=== PATIENT | female | born 2000 | race Caucasian/White ===

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

== ENCOUNTER 2020-01-05 09:06 | Emergency (ER) | payer OTHER ==
[2020-01-05] MEDS ORDERED: FAMOTIDINE 20 MG/2 ML VIAL IV ONE (09:44)
[2020-01-05] MEDS ORDERED: NA CHLORIDE 0.9% 1,000 ML ONE ×2 (09:44→11:46)
[2020-01-05] MEDS ORDERED: ONDANSETRON 4 MG/2 ML VIAL ONE (09:44)
[2020-01-05 09:57] LABS: Absolute Lymphocytes (CBC) 1.1 K/uL (0.7-4.9); Basophils % 0.3 % (0-1.3); Hematocrit 42.4 % (36.0-45.0); MPV 7.8 fL (7.6-11.3); RBC Red Blood Cell Count 4.42 M/uL (3.86-4.86)
--- NOTE | 2020-01-05 09:57 | RAD REPORT ---
EXAM DESCRIPTION: RAD - Chest Single View - 01/05/2020 9:44 am CLINICAL HISTORY: CHEST PAIN COMPARISON: Portable chest August 2019 TECHNIQUE: AP portable chest image was obtained 01/05/2020 9:44 am . FINDINGS: No cardiomegaly or pulmonary edema. Lung adams are clear. Vasculature within normal limit s. Trachea is midline. No measurable pleural effusion and no pneumothorax. No acute bony abnormality seen. No acute aortic findings suspected. IMPRESSION: No acute cardiopulmonary process.
[2020-01-05 09:59] LABS: Protime INR 1.03
[2020-01-05 10:32] LABS: ALT/SGPT 29 U/L (12-78); AST/SGOT 22 U/L (15-37); Alkaline Phosphatase 51 U/L (45-117); BUN Blood Urea Nitrogen 12 mg/dL (7-18); Bicarbonate 21 mmol/L (21-32); Bilirubin Direct 0.2 mg/dL (0-0.2); Bilirubin Total 0.7 mg/dL (0.2-1.0); Glucose Level 105 mg/dL (74-106); HCG, Quantitative 67937 mIU/mL (1-3); NT PRO-BNP 19 pg/mL (<125); Potassium 3.6 mmol/L (3.5-5.1); Protein, Total 7.7 g/dL (6.4-8.2); Sodium Level 139 mmol/L (136-145); Troponin (Emerg Dept Use Only) < 0.02 ng/mL (0.0-0.045)
[2020-01-05 11:52] LABS: Barbiturates NEGATIVE (NEGATIVE); Benzodiazepines NEGATIVE (NEGATIVE); Cocaine NEGATIVE (NEGATIVE); METHAMPHETAM NEGATIVE (NEGATIVE); Methadone NEGATIVE (NEGATIVE); Opiates NEGATIVE (NEGATIVE); Phencyclidine NEGATIVE (NEGATIVE); THC Cannibis NEGATIVE (NEGATIVE)
--- NOTE | 2020-01-05 12:02 | ER ---
Nurse's Notes [facility] Name: Barbara Moran Age: 19 yrs Sex: Female : 2000 Arrival Date: 01/05/2020 Time: 09:08 Bed 2 Private MD: Diagnosis: Nausea and vomiting;Dehydration;Chest pain, unspecified;Dyspepsia; related conditions, unspecified Presentation: 01/04 09:09 Chief complaint: EMS states: N/V for 3 days, 13 weeks , unknown LMP, also em reports chest pain that radiates into the back and jaw. Coronavirus screen: Proceed with normal triage. Patient denies a cough. Patient denies shortness of breath or difficulty breathing. Patient denies measured and/or subjective temperature greater than 100.4F prior to today's visit. Patient denies travel on a cruise ship or to a country the [facility] currently lists as an affected area. Patient denies contact with known and/or suspected case of COVID-19. Ebola Screen: Patient negative for fever greater than or equal to 101.5 degrees Fahrenheit, and additional compatible Ebola Virus Disease symptoms Patient denies exposure to infectious person. Patient denies travel to an Ebola-affected area in the 21 days before illness onset. No symptoms or risks identified at this time. Initial Sepsis Screen: Does the patient meet any 2 criteria? No. Patient's initial sepsis screen is negative. Does the patient have a suspected source of infection? No. Patient's initial sepsis screen is negative. Risk Assessment: Do you want to hurt yourself or someone else? Patient reports no desire to harm self or others. Onset of symptoms was January 05, 2020. 09:09 Method Of Arrival: EMS: [facility] em 09:09 Acuity: LUCIA 3 em Historical: - Allergies: 09:15 No Known Allergies; em - PMHx: 09:15 None; em - PSHx: 09:15 None; em - Immunization history:: Adult Immunizations up to date. - Social history:: Smoking status: Patient denies any tobacco usage or history of. Screenin:25 Abuse screen: Denies threats or abuse. Denies injuries from another. Nutritional sv screening: No deficits noted. Tuberculosis screening: No symptoms or risk factors identified. Fall Risk None identified. Assessment: 09:09 General: Appears in no apparent distress. uncomfortable, Behavior is calm, cooperative, em appropriate for age, Denies fever. Pain: Complains of pain in back Pain currently is 5 out of 10 on a pain scale. Neuro: Level of Consciousness is awake, alert, obeys commands, Oriented to person, place, time, situation, Appropriate for age. Cardiovascular: Denies chest pain, Capillary refill < 3 seconds Patient's skin is warm and dry. Rhythm is sinus rhythm. Respiratory: Airway is patent Respiratory effort is even, unlabored, Respiratory pattern is regular, symmetrical. GI: Abdomen is flat, Bowel sounds present X 4 quads. Reports nausea, vomiting. Derm: Skin is intact, is healthy with good turgor, Skin is pink, warm \T\ dry. Musculoskeletal: Capillary refill < 3 seconds, Range of motion: intact in all extremities. 10:06 Reassessment: Patient appears in no apparent distress at this time. Patient and/or em family updated on plan of care and expected duration. Pain level reassessed. Patient is alert, oriented x 3, equal unlabored respirations, skin warm/dry/pink. 11:27 Reassessment: Patient appears in no apparent distress at this time. Patient and/or em family updated on plan of care and expected duration. Pain level reassessed. Patient is alert, oriented x 3, equal unlabored respirations, skin warm/dry/pink. Patient states feeling better. Patient states symptoms have improved. Vital Signs: 09:09 BP 130 / 91; Pulse 67; Resp 18; Temp 98.1; Pulse Ox 100% on R/A; Pain 5/10; em 10:20 BP 130 / 81; Pulse 61; Resp 16; Pulse Ox 100% ; sv 11:26 BP 108 / 54; Pulse 78; Resp 16; Pulse Ox 100% ; sv ED Course: 09:08 Patient arrived in ED. em 09:12 Goran Blackmon MD is Attending Physician. kdr 09:15 Triage completed. em 09:15 Arm band placed on. em 09:16 Jeff Nieves, RN is Primary Nurse. em 09:20 ED physician to see patient. sv 09:25 Patient has correct armband on for positive identification. Bed in low position. Call sv light in reach. 09:44 XRAY Chest (1 view) In Process Unspecified. EDMS 10:11 EKG done, by ED staff, reviewed by Goran Blackmon MD. jb1 11:34 Urine collected: clean catch specimen. sv 12:30 No provider procedures requiring assistance completed. IV discontinued, intact, em bleeding controlled, No redness/swelling at site. Pressure dressing applied. Administered Medications: 09:49 Drug: Zofran (Ondansetron) 4 mg Route: IVP; Site: right antecubital; em 11:37 Follow up: Response: No adverse reaction; Marked relief of symptoms; Nausea is decreasedem 09:49 Drug: NS 0.9% 1000 ml Route: IV; Rate: 1 bolus; Site: right antecubital; em 11:36 Follow up: IV Status: Completed infusion; IV Intake: 1000ml em 09:51 Drug: Pepcid 20 mg Route: IVP; Site: right antecubital; em 11:36 Follow up: Response: No adverse reaction; Marked relief of symptoms em 11:40 Drug: NS 0.9% 1000 ml Route: IV; Rate: 1 bolus; Site: right antecubital; em 12:30 Follow up: IV Status: Completed infusion; IV Intake: 1000ml em Intake: 11:36 IV: 1000ml; Total: 1000ml. em 12:30 IV: 1000ml; Total: 2000ml. em Outcome: 12:01 Discharge ordered by . kdr 12:32 Discharged to home ambulatory. em 12:32 Condition: good 12:32 Discharge instructions given to patient, Instructed on discharge instructions, follow up and referral plans. medication usage, Demonstrated understanding of instructions, follow-up care, medications, Prescriptions given X 1. 12:33 Patient left the ED. em Signatures: Dispatcher [employer] Izaiah Gilmore jb1 Yolande Shirley, RN RN sv Goran Blackmon MD MD kdr Munoz, Edgar, RN RN em
--- NOTE | 2020-01-05 12:03 | EDPHYS ---
Physician Documentation [facility] Name: Barbara Moarn Age: 19 yrs Sex: Female : 2000 Arrival Date: 01/05/2020 Time: 09:08 Bed 2 Private MD: ED Physician Goran Blackmon HPI: 01/04 12:05 This 19 yrs old Female presents to ER via EMS with complaints of Nausea, kdr chest and back pain. 12:05 The patient presents to the emergency department with nausea, that is mild, vomiting, kdr that is intermittent. Onset: The symptoms/episode began/occurred suddenly, 3 day(s) ago. Possible causes: . The symptoms are aggravated by nothing. The symptoms are alleviated by food . Associated signs and symptoms: Pertinent positives: abdominal pain, nausea, vomiting. Severity of symptoms: At their worst the symptoms were. The patient has not experienced similar symptoms in the past. The patient has not recently seen a physician. Historical: - Allergies: 09:15 No Known Allergies; em - PMHx: :15 None; em - PSHx: 09:15 None; em - Immunization history:: Adult Immunizations up to date. - Social history:: Smoking status: Patient denies any tobacco usage or history of. ROS: 12:05 Constitutional: Negative for fever, chills, and weight loss, Eyes: Negative for injury, kdr pain, redness, and discharge, Neck: Negative for injury, pain, and swelling, Respiratory: Negative for shortness of breath, cough, wheezing, and pleuritic chest pain, Back: Negative for injury and pain, : Negative for injury, bleeding, discharge, and swelling, MS/Extremity: Negative for injury and deformity, Skin: Negative for injury, rash, and discoloration, Neuro: Negative for headache, weakness, numbness, tingling, and seizure activity. Psych: Negative for depression, anxiety, suicide ideation, homicidal ideation, and hallucinations, Allergy/Immunology: Negative for hives, rash, and allergies, Endocrine: Negative for neck swelling, polydipsia, polyuria, polyphagia, and marked weight changes, Hematologic/Lymphatic: Negative for swollen nodes, abnormal bleeding, and unusual bruising. 12:05 Cardiovascular: Positive for chest pain. 12:05 Abdomen/GI: Positive for abdominal pain, nausea and vomiting. Exam: 12:05 Constitutional: This is a well developed, well nourished patient who is awake, alert, kdr and in no acute distress. Head/Face: Normocephalic, atraumatic. Eyes: Pupils equal round and reactive to light, extra-ocular motions intact. Lids and lashes normal. Conjunctiva and sclera are non-icteric and not injected. Cornea within normal limits. Periorbital areas with no swelling, redness, or edema. Neck: Trachea midline, no thyromegaly or masses palpated, and no cervical lymphadenopathy. Supple, full range of motion without nuchal rigidity, or vertebral point tenderness. No Meningismus. Chest/axilla: Normal chest wall appearance and motion. Nontender with no deformity. No lesions are appreciated. Cardiovascular: Regular rate and rhythm with a normal S1 and S2. No gallops, murmurs, or rubs. Normal PMI, no JVD. No pulse deficits. Respiratory: Lungs have equal breath sounds bilaterally, clear to auscultation and percussion. No rales, rhonchi or wheezes noted. No increased work of breathing, no retractions or nasal flaring. Back: No spinal tenderness. No costovertebral tenderness. Full range of motion. Skin: Warm, dry with normal turgor. Normal color with no rashes, no lesions, and no evidence of cellulitis. MS/ Extremity: Pulses equal, no cyanosis. Neurovascular intact. Full, normal range of motion. Neuro: Awake and alert, GCS 15, oriented to person, place, time, and situation. Cranial nerves II-XII grossly intact. Motor strength 5/5 in all extremities. Sensory grossly intact. Cerebellar exam normal. Normal gait. Psych: Awake, alert, with orientation to person, place and time. Behavior, mood, and affect are within normal limits. 12:05 Abdomen/GI: Inspection: abdomen appears normal. Vital Signs: 09:09 BP 130 / 91; Pulse 67; Resp 18; Temp 98.1; Pulse Ox 100% on R/A; Pain 5/10; em 10:20 BP 130 / 81; Pulse 61; Resp 16; Pulse Ox 100% ; sv 11:26 BP 108 / 54; Pulse 78; Resp 16; Pulse Ox 100% ; sv MDM: 12:01 Patient medically screened. kdr 12:05 Data reviewed: vital signs, nurses notes, lab test result(s), radiologic studies. kdr Counseling: I had a detailed discussion with the patient and/or guardian regarding: the historical points, exam findings, and any diagnostic results supporting the discharge/admit diagnosis, lab results, radiology results, the need for outpatient follow up. 01/04 09:14 Order name: Basic Metabolic Panel; Complete Time: 11:04 [facility] 01/04 09:14 Order name: CBC with Diff [facility] 01/04 09:14 Order name: LFT's; Complete Time: 11:04 [facility] 01/04 09:14 Order name: Magnesium; Complete Time: 11:04 [facility] 01/04 09:14 Order name: NT PRO-BNP; Complete Time: 11:04 [facility] 01/04 09:14 Order name: PT-INR; Complete Time: 11:04 [facility] 01/04 09:14 Order name: Troponin (emerg Dept Use Only); Complete Time: 11:04 [facility] 01/04 09:14 Order name: XRAY Chest (1 view); Complete Time: 11:04 [facility] 01/04 09:27 Order name: UDS; Complete Time: 11:54 [facility] 01/04 09:56 Order name: HCG, Quantitative; Complete Time: 11:04 [facility] 01/04 11:43 Order name: Urine Dipstick--Ancillary (enter results) em1 01/04 12:18 Order name: CBC Smear Scan [facility] 01/04 09:14 Order name: EKG; Complete Time: 09:15 [facility] 01/04 09:14 Order name: Cardiac monitoring; Complete Time: 09:17 [facility] 01/04 09:14 Order name: EKG - Nurse/Tech; Complete Time: 09:56 [facility] 01/04 09:14 Order name: IV Saline Lock; Complete Time: 09:56 [facility] 01/04 09:14 Order name: Labs collected and sent; Complete Time: 09:56 [facility] 01/04 09:14 Order name: O2 Per Protocol; Complete Time: 09:17 [facility] 01/04 09:14 Order name: O2 Sat Monitoring; Complete Time: 09:17 kdr Administered Medications: 09:49 Drug: Zofran (Ondansetron) 4 mg Route: IVP; Site: right antecubital; em 11:37 Follow up: Response: No adverse reaction; Marked relief of symptoms; Nausea is decreasedem 09:49 Drug: NS 0.9% 1000 ml Route: IV; Rate: 1 bolus; Site: right antecubital; em 11:36 Follow up: IV Status: Completed infusion; IV Intake: 1000ml em 09:51 Drug: Pepcid 20 mg Route: IVP; Site: right antecubital; em 11:36 Follow up: Response: No adverse reaction; Marked relief of symptoms em 11:40 Drug: NS 0.9% 1000 ml Route: IV; Rate: 1 bolus; Site: right antecubital; em 12:30 Follow up: IV Status: Completed infusion; IV Intake: 1000ml em Disposition: 01/05/20 12:01 Discharged to Home. Impression: Nausea and vomiting, Dehydration, Chest pain, unspecified, Dyspepsia, related conditions, unspecified. - Condition is Stable. - Discharge Instructions: Nonspecific Chest Pain, Nausea and Vomiting, Adult, [id number], Dehydration, Adult, [id number]. - Prescriptions for Zofran 4 mg Oral Tablet - take 1 tablet by ORAL route every 4-6 hours As needed; 20 tablet. - Medication Reconciliation Form, Thank You Letter form. - Follow up: Private Physician; When: 2 - 3 days; Reason: If symptoms return, Further diagnostic work-up, Recheck today's complaints, Continuance of care, Re-evaluation by your physician. - Problem is new. - Symptoms have improved. Signatures: Dispatcher [employer] [facility] Goran Blackmon MD MD kdr Jeff Nieves RN RN em Corrections: (The following items were deleted from the chart) 09:56 09:28 QUANTITATIVE HCG+C.LAB.BRZ ordered. [facility] 12:33 12:01 01/05/2020 12:01 Discharged to Home. Impression: Nausea and vomiting; em Dehydration; Chest pain, unspecified; Dyspepsia; related conditions, unspecified. Condition is Stable. Forms are Medication Reconciliation Form, Thank You Letter, Antibiotic Education, Prescription Opioid Use. Follow up: Private Physician; When: 2 - 3 days; Reason: If symptoms return, Further diagnostic work-up, Recheck today's complaints, Continuance of care, Re-evaluation by your physician. Problem is new. Symptoms have improved. kdr
[2020-01-05 12:17] LABS: Platelet Estimate ADEQ; Urine White Blood Cell Casts OK
[2020-01-05 12:18] LABS: Blood Morphology Comment NOT SEEN (NOT SEEN)
[2020-01-05 12:27] LABS: Urine Blood NEGATIVE (NEG); Urine Glucose NEGATIVE (NEG); Urine Protein 2+ (NEG); Urine Specific Gravity 1.025 (1.005-1.030)
[2020-01-05 12:38] VITALS: TEMP 98.1; O2SAT 100
[2020-01-05 12:41] VITALS: BP 108/54
--- OUTSIDE RECORDS SUMMARY | 2020-01-05 14:00 | XMS REPORT | Summary of Care ---
:2000 Author Organization [facility] - Health Address [address] [place] [address] Care Team Providers Name Role Phone Tricia Mcmullen Insurance Hmo Destinee Holland [facility] Primary Care Provider [phone] Encounter Details Date Type Department Care Team Description 12/04/2019 Orders Only [facility] Doctor Unassigned, No [address] [facility] [place] [address] [address] [place] [address] Allergies No Known Allergiesdocumented as of this encounter (statuses as of 12/04/2019) Medications Medication Sig Dispensed Refills Start Date End Date Status ibuprofen Take 1 Tab by 1 bot 1 03/05/2010 Activ e (ADVIL,MOTRIN) 100 mg mouth. 2 1/2 chewable tablet tablets every 6-8 hours as needed for pain/fever acetaminophen Take 1 Tab by 1 bot 1 03/05/2010 A ctive (TYLENOL) 160 mg mouth every 6 chewable tablet (six) hours as needed for Pain. 2 1/2 tablets every 4-6 hours as needed for fever/pain VIT Take by mouth. 0 A ctive CALC,IRON,FOLIC ( #2 ORAL) PNV 67-iron ps-folate Take 1 Each by 30 capsule 11 10/18/2017 Active no.1-dha (VITAFOL mouth daily. ULTRA) 29 mg iron- 1 mg-200 mg CapIndications: Supervision of high-risk of young multigravida proMETHazine 25 mg Take 1 tablet by 30 tablet 0 04/20/2018 Active tabletIndications: mouth every 6 Nausea and vomiting (six) hours as during prior needed for Nausea to 22 weeks gestation and Vomiting (N/V). doxylamine-pyridoxine, Take 2 tablets by 120 tablet 1 04/28/20 18 Active vit B6, (DICLEGIS) mouth at bedtime. 10-10 mg per tablet cephALEXin 500 mg Take 1 capsule by 28 capsule 0 05/09/2018 Active capsuleIndications: mouth 4 (four) Bartholin's cyst times daily. ferrous sulfate 325 mg Take 1 tablet by 60 tablet 2 05/26/2018 Active (65 mg iron) tablet mouth 2 (two) times daily. ascorbic acid, vitamin Take 1 tablet by 90 tablet 2 05/26/2018 Active C, 500 mg tablet mouth 3 (three) times daily. documented as of this encounter (statuses as of 12/04/2019) Active Problems Patient Care Coordination Note iol 06-11-18 Problem Noted Date Headache in 11/17/2017 Nausea and vomiting during prior to 22 weeks gestation 11/17/2017 Susceptible to varicella (non-immune), currently pregn ant 10/20/2017 Overview: Address pp Chlamydia infection affecting 10/20/2017 Overview: DASHA in 3/4 weeks--neg and at 36 weeks Supervision of high-risk of young multigravi da 10/18/2017 Multiparity 10/18/2017 History of delivery 10/18/2017 Overview: 28w4d see scanned records Approved for mekena Flu vaccine need 10/18/2017 Overview: Received today documented as of this encounter (statuses as of 12/04/2019) Resolved Problems Problem Noted Date Resolved Date Adjustment reaction with anxious mood 10/03/2009 documented as of this encounter (statuses as of 12/04/2019) Immunizations Name Administration Dates Next Due DTAP 06/17/2004, 09/11/2001, 2000, 2000, 2000 HEPATITIS A 09/03/2009 HIB 4 Dose Schedule 06/19/2001, 2000, 2000, 2000 Hep B, Adol or Pedi Dosage 2000, 2000, 11/25/200 0 Influenza Virus Vaccine Quad IM 3+ 10/18/2017 YRS MMR 06/17/2004, 06/19/2001 Pneumococcal 7 Conjugate, PCV7 10/11/2005, 2000 (Prevnar7) Polio (IPV/OPV) 06/17/2004, 2000, 2000, 2000 Tdap 03/23/2018 Varicella (varivax)(chicken pox) 10/11/2005, 06/19/2001 documented as of this encounter Social History Tobacco Use Types Packs/Day Years Used Date Never Smoker Smokeless Tobacco: Never Used Alcohol Use Drinks/Week oz/Week Comments No Sex Assigned at Date Recorded Not on file Job Start Date Occupation Industry Not on file Not on file Not on file Travel History Travel Start Travel End No recent travel history available. documented as of this encounter Last Filed Vital Signs Not on filedocumented in this encounter Plan of Treatment Health Maintenance Due Date Last Done Comments HEPATITIS A VACCINES (2 of 2 03/03/2010 09/03/2009 - 2-dose series) MENINGOCOCCAL B VACCINES (1 2010 of 2 - Risk Bexsero 2-dose series) HPV VACCINES (1 - Female 2015 3-dose series) MENINGOCOCCAL VACCINE (1 - 2016 2-dose series) INFLUENZA VACCINE (#1) 2019 10/18/2017 CHLAMYDIA SCREENING 05/18/2019 05/18/2018, 11/17/2017, 10/18/2017, Additional history exists DTaP,Tdap,and Td Vaccines (7 03/23/2028 03/23/2018, 004, - Td) 09/11/2001, Additional history exists HEPATITIS B VACCINES Completed 2000, 2000, 2000 IPV VACCINES Completed 06/17/2004, 2000, 2000, Additional history exists MMR VACCINES Completed 06/17/2004, 06/19/2001 PNEUMOCOCCAL 0-64 YEARS Aged Out 10/11/2005, 2000 N o longer eligible COMBINED SERIES based on patient 's age to complete this topic VARICELLA VACCINES Completed 10/11/2005, 06/19/2001 documented as of this encounter Procedures Procedure Name Priority Date/Time Associated Diagnosis Comme nts NOTICE OF PRIVACY Routine 12/04/2019 3:43 AM CDT PRACTICES documented in this encounter Results Not on filedocumented in this encounter Insurance Payer Benefit Plan / Subscriber ID Effective Dates Phone Addre ss Type Group [place] xxxxxxxxx 2017-Presen Medicaid HEALTH PLAN - HEALTH MANAGED MEDICAID documented as of this encounter Advance Directives Name Relationship Healthcare Agent Relationship Co mmunication [place] Mensah Friend Primary healthcare agent Whitney Mensah Friend First alternate healthcare agent Long Peng Father Second alternate healthcare agen t
--- OUTSIDE RECORDS SUMMARY | 2020-01-05 14:00 | XMS REPORT | Continuity of Care Document ---
:2000 Author Organization [facility] t Address [address] [place] [address] Care Team Providers Name Role Phone Harika Núñez DO Attending Clinician Doctor Unassigned, Name Attending Clinician Unavailable Payers Payer Name Policy Type Policy Number Effective Date Expiration Date S ource Problems This patient has no known problems. Allergies, Adverse Reactions, Alerts Allergy Allergy Status Severity Reaction(s) Onset Inactive Treating Comm ents Source Name Type Date Date Clinician No Known DA Active U 2017-07 [facility] [place] No Known DA Active U 2016-07 [facility] 00 [facility] Medications This patient has no known medications. Procedures This patient has no known procedures. Encounters Start End Encounter Admission Attending Care Care Encounter Source Date/Time Date/Time Type Type Clinicians Facility Department ID 2019-12-08 2019-12-08 [facility] [id number] 06:56:27 10:35:00 Simi Pace [id number] [place] [id number] [place] [id number] [id number] 2019-12-04 2019-12-04 Emergency [place] [id number] 03:47:07 06:29:00 Simi Pace [id number] [place] [id number] [place] [id number] 2019-12-04 2019-12-04 Orders Doctor [place] [id number] 00:00:00 00:00:00 Only Unassigned, RASHID [id number] [place] [facility] [id number] [id number] Results This patient has no known results.
--- OUTSIDE RECORDS SUMMARY | 2020-01-05 14:01 | XMS REPORT | Summary of Care ---
:2000 Author Organization [facility] Address [address] [place] [address] Care Team Providers Name Role Phone Lisbeth McmullenCassandra Insurance Hmo Pcp, Patient Does Not Have A Primary Care Provider +[phone] [phone] Reason for Referral (Routine) Status Reason Specialty Diagnoses / Referred By Referred To Procedures Contact Contact New Request OG-OBSTETRICS & Diagnoses Generalized abdominal pain Simi Núñez GYNECOLOGY Procedures Discharge Follow-Up: Specialty Service OG-OBSTETRICS & GYNECOLOGY; 1 Week J, DO [address] [place] [address] Reason for Visit Reason Comments Abdominal Pain left upper quad Chest wall pain Auth/Cert Status Reason Specialty Diagnoses / Referred By Referred To Procedures Contact Contact Emergency Medicine Ad[facility] Em ergency Dept [address] [facility] [place] [phone] Fax: Encounter Details Date Type Department Care Team Description 12/04/2019 Emergency ADC-Emergency Simi Núñez, General ized abdominal Department DO pain (Primary Dx) [address] [facility] [address] [place], [place] [id number] Allergies No Known Allergiesdocumented as of this encounter (statuses as of 12/04/2019) Medications Medication Sig Dispensed Refills Start Date End Date Status ibuprofen Take 1 Tab by 1 bot 1 03/05/2010 Activ e (ADVIL,MOTRIN) 100 mg mouth. 2 1/2 chewable tablet tablets every 6-8 hours as needed for pain/fever acetaminophen (TYLENOL) Take 1 Tab by 1 bot 1 03/05/2010 Active 160 mg chewable tablet mouth every 6 (six) hours as needed for Pain. 2 [...] (six) hours as during prior needed for to 22 weeks gestation Nausea and Vomiting (N/V). doxylamine-pyridoxine, Take 2 tablets 120 tablet 1 04/28/2018 Active vit B6, (DICLEGIS) by mouth at 10-10 mg per tablet bedtime. cephALEXin 500 mg Take 1 capsule 28 capsule 0 05/09/2018 Active capsuleIndications: by mouth 4 Bartholin's cyst (four) times daily. ferrous sulfate 325 mg Take 1 tablet by 60 tablet 2 05/26/2018 Active (65 mg iron) tablet mouth 2 (two) times daily. ascorbic acid, vitamin Take 1 tablet by 90 tablet 2 05/26/2018 Active C, 500 mg tablet mouth 3 (three) times daily. ondansetron (ZOFRAN Take 1 tablet by 14 tablet 0 12/04/2019 Active ODT) 4 mg mouth every 8 disintegrating (eight) hours as tabletIndications: needed for Generalized abdominal Nausea and pain Vomiting (N/V). documented as of this encounter (statuses as [...] B, Adol or Pedi Dosage 2000, 2000, 0 Influenza Virus Vaccine Quad IM 3+ [...] Travel End No recent travel history available. COVID-19 Exposure Response Date Recorded In the last month, have you been in contact with No / Unsure 12/04/2019 3:50 AM CDT someone who was confirmed or suspected to have Coronavirus / COVID-19? documented as of this encounter Last Filed Vital Signs Vital Sign Reading Time Taken Comments Blood Pressure 116/61 12/04/2019 6:20 AM CDT Pulse 80 12/04/2019 6:20 AM CDT Temperature 37.1 C (98.7 F) 12/04/2019 4:21 AM CDT Respiratory Rate 14 12/04/2019 6:20 AM CDT Oxygen Saturation 99% 12/04/2019 6:20 AM CDT Inhaled Oxygen Concentration - - Weight 45.4 kg (100 lb) 12/04/2019 3:54 AM CDT Height 160 cm (5' 3") 12/04/2019 3:54 AM CDT Body Mass Index 17.71 12/04/2019 3:54 AM CDT documented in this encounter Discharge Instructions Simi Villarreal, - 12/04/2019DIAGNOSIS 1. Dehydration 2. NO LIFE-THREATENING FINDINGS ON TODAY'S EXAM. PROCEDURES IN THE ER TODAY: Blood work Urine test Ultrasound MEDICATIONS ADMINISTERED IN THE ER TODAY: IV fluids Zofran YOUR PRESCRIPTIONS AND [id number] MEDICATION RECOMMENDATIONS: Zofran by mouth every 8 hours as needed for nausea/vomiting. Please start daily vitamins.. SPECIAL CARE INSTRUCTIONS: None FOLLOW-UP RECOMMENDATIONS: RECOMMEND FOLLOW-UP WITH A PRIMARY CARE PROVIDER OR SPECIALIST IN 2-5 DAYS, ESPECIALLY IF NO IMPROVEMENT IN SYMPTOMS. TO FOLLOW-UP WITHIN THE [facility], TRY THESE OPTIONS (CLINIC APPOINTMENTS AVAILABLE ON EDBM-NT-YVCT BASIS): 1. SCHEDULE AN APPOINTMENT ONLINE AT [email or web address] 2. OR CALL THE [facility] ACCESS CENTER AT OR 3. OR CALL YOUR [facility] PHYSICIAN'S OFFICE DIRECTLY IF YOU ARE ALREADY AN ESTABLISHED [facility] PATIENT. OR, YOU MAY FOLLOW-UP WITH A PROVIDER OF YOUR CHOICE, SUCH : 1. A PHYSICIAN OF YOUR CHOICE 2. [facility], . LOCATIONS IN [facility] 3. [facility], [address] [place] [address]; [phone] RETURN TO ER FOR WORSENING OF SYMPTOMS. AttachmentsThe following attachments cannot be sent through Care Everywhere. Dehydration (Adult) (Belgian)Heat Exhaustion (Belgian), New Dx (Belgian)documented in this encounter Plan of Treatment Health Maintenance Due Date Last Done Comments MENINGOCOCCAL B VACCINES (1 2010 of 2 - Risk Bexsero 2-dose series) HPV VACCINES (1 - Female 2011 2-dose series) WELL CARE VISIT: 12-21 YEARS 2012 (yearly) CHLAMYDIA SCREENING 05/18/2019 05/18/2018, 11/17/2017, 10/18/2017, Additional history exists INFLUENZA VACCINE (Season 03/18/2020 10/18/2017 Ended) DTaP,Tdap,and Td Vaccines (7 03/23/2028 03/23/2018, 004, - Td) 09/11/2001, Additional history exists PNEUMOCOCCAL 0-64 YEARS Aged Out 10/11/2005, 2000 N o longer eligible COMBINED SERIES based on patient 's age to complete this topic VARICELLA VACCINES Completed 10/11/2005, 06/19/2001 MENINGOCOCCAL VACCINE Aged Out No longer eligible based on patient 's age to complete this topic documented as of this encounter Procedures Procedure Name Priority Date/Time Associated Diagnosis Comme nts CBC WITH DIFFERENTIAL STAT 12/04/2019 4:18 Generalized Re sults for this AM CDT abdominal pain procedure are in the results section. CBC WITH DIFFERENTIAL Routine 12/04/2019 4:18 Generalized Re sults for this AM CDT abdominal pain procedure are in the results section. TOTAL BETA HCG ASSAY STAT 12/04/2019 4:18 Generalized Res ults for this AM CDT abdominal pain procedure are in the results section. BASIC METABOLIC PANEL STAT 12/04/2019 4:18 Generalized Re sults for this (NA, K, CL, CO2, AM CDT abdominal pain procedure are in GLUCOSE, BUN, the results CREATININE, CA) section. HEPATIC FUNCTION STAT 12/04/2019 4:18 Generalized Results for this PANEL (19981) AM CDT abdominal pain procedure ar e in (ALB,T.PRO,BILI the results T,BU/BC,ALT,AST,ALK section. PHOS) LIPASE STAT 12/04/2019 4:18 Generalized Results for this AM CDT abdominal pain procedure are in the results section. CREATINE KINASE STAT 12/04/2019 4:18 Generalized Results for this AM CDT abdominal pain procedure are in the results section. POCT TEST DEVANTE 12/04/2019 3:59 Generalized Resu lts for this AM CDT abdominal pain procedure are in the results section. URINALYSIS STAT 12/04/2019 3:58 Generalized Results for this AM CDT abdominal pain procedure are in the results section. ASSIGNMENT OF Routine 12/04/2019 3:44 BENEFITS AM CDT CONSENT/REFUSAL FOR Routine 12/04/2019 3:43 DIAGNOSIS AND AM CDT TREATMENT documented in this encounter Results TOTAL BHCG (QUANTITATIVE) (12/04/2019 4:18 AM CDT) Pathologist Sig nature BETA HCG 19,579.00 Non- female [facility] and male patients: HOSPITAL LABORATORY <5 mIU/mL Specimen Blood - VENOUS Narrative Performed At [facility] Gestational Age Range (mIU/mL) 1-10 Weeks 4 [id number] 11-15 Weeks 78754-288894 16-22 Weeks 7480-498349 23-40 Weeks [id number] Biotin has been reported to cause a negative bias, interpret results relative to patient's use of biotin. Performing Organization Address City/State/Zipcode Phone Number [facility] CLIA: [id number], [address] [place] [address] CBC WITH DIFFERENTIAL (12/04/2019 4:18 AM CDT) [facility] WBC 10.73 4.30 - 11.10 [facility] 10*3/L [facility] RBC 4.12 3.93 - 5.25 [facility] 10*6/L [facility] HGB 13.1 11.6 - 15.0 [facility] g/dL [facility] HCT 38.6 35.7 - 45.2 % [facility] MCV 93.7 80.6 - 95.5 fL [facility] MCH 31.8 25.9 - 32.8 pg [facility] MCHC 33.9 31.6 - 35.1 [facility] g/dL [facility] RDW-SD 44.7 39.0 - 49.9 fL [facility] RDW-CV 12.9 12.0 - 15.5 % [facility] PLT 265 166 - 358 [facility] 10*3/L [facility] MPV 9.1 (L) 9.5 - 12.9 fL [facility] NRBC/100 WBC 0.0 0.0 - 10.0 /100 [facility] WBCs [facility] NRBC x10^3 <0.01 10*3/L [facility] GRAN MAT (NEUT) % 72.6 % [facility] IMM GRAN % 0.60 % [facility] LYMPH % 19.3 % [facility] MONO % 5.7 % [facility] EOS % 1.4 % [facility] BASO % 0.4 % [facility] GRAN MAT x10^3(ANC) 7.80 (H) 1.88 - 7.09 [facility] 10*3/uL [facility]ITAL [facility] IMM GRAN x10^3 0.06 0.00 - 0.06 [facility] 10*3/uL [facility] LYMPH x10^3 2.07 1.32 - 3.29 [facility] 10*3/uL [facility] MONO x10^3 0.61 0.33 - 0.92 [facility] 10*3/uL [facility] EOS x10^3 0.15 0.03 - 0.39 [facility] 10*3/uL [facility] BASO x10^3 0.04 0.01 - 0.07 [facility] 10*3/uL [facility] Specimen Blood - VENOUS Performing Organization Address [facility] Phone Number [facility] CLIA: [id number], [address] [place] [address] CREATINE KINASE (12/04/2019 4:18 AM CDT) Pathologist Sig [facility] CK 73 33 - 194 U/L [facility] Specimen Blood - VENOUS Performing Organization Address [facility] Phone Number [facility] CLIA: [id number], [address] [place] [address] Lipase Serum (12/04/2019 4:18 AM CDT) Pathologist Sig [facility] LIPASE 27 0 - 220 U/L [facility] Specimen Blood - VENOUS Performing Organization Address [facility] Phone Number [facility] CLIA: [id number], [address] [place] [address] Hepatic Function Panel (ALB, T.PRO, BILI T, BU/BC, ALT, AST, ALK PHOS) (12/04/2019 4:18 AM CDT) Pathologist Sig [facility] TOTAL BILI 0.6 0.1 - 1.1 mg/dL [facility] BILI UNCON 0.8 0.1 - 1.1 mg/dL [facility] BILI CONJ 0.0 0.0 - 0.3 mg/dL [facility] T PROTEIN 6.6 6.3 - 8.2 g/dL [facility] ALBUMIN 4.1 3.5 - 5.0 g/dL [facility] ALK PHOS 38 34 - 122 U/L [facility] ALTv 11 5 - 35 U/L [facility] AST(SGOT) 17 13 - 40 U/L [facility] Specimen Blood - VENOUS Performing Organization Address City/State/Zipcode Phone Number [facility] CLIA: [id number], [address] [place] [address] Basic Metabolic Panel (NA, K, CL, CO2, GLUCOSE, BUN, CREATININE, CA) (12/04/2019 4:18 AM CDT) [facility] nature NA 137 135 - 145 mmol/L [facility] K 3.5 3.5 - 5.0 mmol/L [facility] CL 104 98 - 108 mmol/L [facility] CO2 TOTAL 25 23 - 31 mmol/L [facility] AGAP 8 2 - 16 [facility] BUN 12 7 - 23 mg/dL [facility] GLUCOSE 99 70 - 110 mg/dL [facility] CREATININE 0.57 0.50 - 1.04 [facility] mg/dL [facility] CALCIUM 9.2 8.6 - 10.6 mg/dL [facility] eGFR Calculation 136.6 mL/min/1.73m2 [facility] (Non-) [facility] eGFR Calculation 165.6 mL/min/1.73m2 [facility] () [facility] Specimen Blood - VENOUS Narrative Performed At Association of Glomerular Filtration Rate (GFR) [facility] and Staging of Kidney Disease* + + +- + | GFR (mL/min/1.73 m2) | With Kidney Damage | Without Kidney Damage + + +- + | >90 | Stage one | Normal + + +- + | 60-89 | Stage two | Decreased GFR + + +- + | 30-59 | Stage three | Stage three + + +- + | 15-29 | Stage four | Stage four + + +- + | <15 (or dialysis) | Stage five | Stage five + + +- + *Each stage assumes the associated GFR level has been in effect for at least three months. Stages 1 to 5, with or without kidney disease, indicate chronic kidney disease. Notes: Determination of stages one and two (with eGFR >59mL/min/1.73 m2) requires estimation of kidney damage for at least three months as defined by structural or functional abnormalities of the kidney, manifested by either: Pathological abnormalities or Markers of kidney damage (including abnormalities in the composition of the blood or urine or abnormalities in imaging tests). Performing Organization Address City/State/Zipcode Phone Number [facility] CLIA: [id number], [address] [place], [place] [address] POCT Test, Urine (12/04/2019 3:59 AM CDT) Pathologist Sig nature On board controls acceptable Positive with C Line POCT PREG LOT # [id number] POCT PREG TEST DATE 02/14/2021 POCT PREG positive Specimen Urine - URINE, CLEAN CATCH Urinalysis (12/04/2019 3:58 AM CDT) Pathologist Sig nature APPEARANCE Hazy (A) Clear [facility] COLOR Yellow Yellow [facility] PH 5.0 4.8 - 8.0 [facility] SP GRAVITY 1.028 1.003 - 1.030 [facility] GLU U QUAL Normal Normal [facility] BLOOD Negative Negative [facility] KETONES 20 mg/dL (A) Negative [facility] PROTEIN Negative Negative [facility] UROBILIN Normal Normal [facility] BILIRUBIN Negative Negative [facility] NITRITE Negative Negative [facility] LEUK ANDRE Negative Negative [facility] RBC/HPF 3 0 - 3 HPF [facility] WBC/HPF 1 0 - 5 HPF [facility] BACTERIA Negative Negative [facility] MUCOUS Moderate (A) Negative LPF [facility] SQ EPITH 4 HPF [facility] CA OXALATE 10 (H) <=1 HPF [facility] Specimen Urine - URINE, CLEAN CATCH Performing Organization Address City/State/Zipcode Phone Number [facility] CLIA: [id number], [address] [place], [place] [address] documented in this encounter Visit Diagnoses Diagnosis Generalized abdominal pain - Primary Abdominal pain, generalized documented in this encounter Administered Medications Medication Order MAR Action Action Date Dose Rate Site acetaminophen (TYLENOL) tablet Given 12/04/2019 4:17 AM CDT 650 mg 650 mg 650 mg, Oral, ONCE, 1 dose, 12/04/19 at 0515, DEVANTE NaCl 0.9% (NS) bolus infusion New Bag 12/04/2019 4:17 AM CDT 1,000 mL 999 mL/hr 1,000 mL at 999 mL/hr, 1,000 mL, IV Infusion, ONCE, 1 dose, 12/04/19 at 0415, DEVANTE ondansetron (ZOFRAN (PF)) injection 4 mg Given 12/04/2019 4:29 AM CDT 4 mg 4 mg, Slow IV Push, ONCE, 1 dose, 12/04/19 at 0430, DEVANTE documented in this encounter Insurance Payer Benefit Plan / Subscriber ID Effective Dates Phone Addre ss Type Group [facility] MEDICAID OF xxxxxxxxx 2019-Present [phone] Medicaid [place] [id number] [place] [id number] documented as of this encounter
--- OUTSIDE RECORDS SUMMARY | 2020-01-05 14:02 | XMS REPORT | Summary of Care ---
:2000 Author Organization [facility] - Health Address [address] [place] [address] Care Team Providers Name Role Phone Ivanna Mcmullenh Insurance Hmo Pcp, Patient Does Not Have A Primary Care Provider +[id number] 0-0000 Reason for Visit Reason Comments Headache Auth/Cert Status Reason Specialty Diagnoses / Referred By Referred To Procedures Contact Contact Emergency Medicine Diagnoses CHEST PAIN,VOMITING [facility] Emergency Dept [address] [facility] [place] [address] Fax: Encounter Details Date Type Department Care Team Description 12/08/2019 Emergency ADC-Emergency Simi Núñez, Joshua g, intractability Department DO of vomiting not [address] [facility] [address] [place] [address] specified, presence [place] [address] [place] [address] nausea not specified, unspecified vomiting type (Yessica jesi Dx) Allergies No Known Allergiesdocumented as of this encounter (statuses as of 12/08/2019) Medications Medication Sig Dispensed Refills Start Date [...] as of this encounter (statuses as of 12/08/2019) Active Problems Patient Care Coordination Note iol [...] as of this encounter (statuses as of 12/08/2019) Resolved Problems Problem Noted Date Resolved Date Adjustment reaction with anxious mood 10/03/2009 documented as of this encounter (statuses as of 12/08/2019) Immunizations Name Administration Dates Next Due DTAP [...] been in contact with No / Unsure 12/08/2019 7:51 AM CDT someone who was confirmed or suspected to have Coronavirus / COVID-19? documented as of this encounter Last Filed Vital Signs Vital Sign Reading Time Taken Comments Blood Pressure 113/85 12/08/2019 9:54 AM CDT Pulse 77 12/08/2019 9:54 AM CDT Temperature 37.2 C (98.9 F) 12/08/2019 7:02 AM CDT Respiratory Rate 15 12/08/2019 9:54 AM CDT Oxygen Saturation 100% 12/08/2019 9:54 AM CDT Inhaled Oxygen Concentration - - Weight 45.4 kg (100 lb) 12/08/2019 7:02 AM CDT Height 160 cm (5' 3") 12/08/2019 7:02 AM CDT Body Mass Index 17.71 12/08/2019 7:02 AM CDT documented in this encounter Discharge Instructions Simi Villarreal, - 12/08/2019DIAGNOSIS 1. Vomiting 2. Syncope NO LIFE-THREATENING FINDINGS ON TODAY'S EXAM. PROCEDURES IN THE ER TODAY: Blood work Urine test EKG MEDICATIONS ADMINISTERED IN THE ER TODAY: IV fluids Zofran YOUR PRESCRIPTIONS AND [id number] MEDICATION RECOMMENDATIONS: None SPECIAL CARE INSTRUCTIONS: None FOLLOW-UP RECOMMENDATIONS: RECOMMEND FOLLOW-UP WITH A PRIMARY CARE PROVIDER OR SPECIALIST IN 2-5 DAYS, ESPECIALLY IF NO IMPROVEMENT IN SYMPTOMS. TO FOLLOW-UP WITHIN THE [facility], TRY THESE OPTIONS (CLINIC APPOINTMENTS AVAILABLE ON [id number] BASIS): 1. SCHEDULE AN APPOINTMENT ONLINE AT WWW[facility] 2. OR CALL THE [facility] ACCESS CENTER AT OR 3. OR CALL YOUR [facility] PHYSICIAN'S OFFICE DIRECTLY IF YOU ARE ALREADY AN ESTABLISHED [facility] PATIENT. OR, YOU MAY FOLLOW-UP WITH A PROVIDER OF YOUR CHOICE, SUCH : 1. A PHYSICIAN OF YOUR CHOICE 2. [facility], . LOCATIONS IN [facility] 3. [facility], [address] [place] [address]; [phone] RETURN TO ER FOR WORSENING OF SYMPTOMS. AttachmentsThe following attachments cannot be sent through Care Everywhere. Vomiting (Adult) (Ecuadorean)Syncope, Causes of (Ecuadorean)documented in this encounter Plan of Treatment Health [...] Name Priority Date/Time Associated Diagnosis Comme nts BASIC METABOLIC STAT 12/08/2019 8:30 Vomiting, Results for this PANEL (NA, K, CL, AM CDT intractability of proce dure are in CO2, GLUCOSE, BUN, vomiting not the resul ts CREATININE, CA) specified, presence of se ction. nausea not specified, unspecified vomiting type CBC WITH STAT 12/08/2019 7:52 Vomiting, Results for this DIFFERENTIAL AM CDT intractability of procedure are in vomiting not the results specified, presence of secti on. nausea not specified, unspecified vomiting type URINALYSIS STAT 12/08/2019 7:52 Vomiting, Results for this AM CDT intractability of procedure are in vomiting not the results specified, presence of secti on. nausea not specified, unspecified vomiting type CBC WITH Routine 12/08/2019 7:52 Vomiting, Results for this DIFFERENTIAL AM CDT intractability of procedure are in vomiting not the results specified, presence of secti on. nausea not specified, unspecified vomiting type TROPONIN I STAT 12/08/2019 7:52 Vomiting, Results for this AM CDT intractability of procedure are in vomiting not the results specified, presence of secti on. nausea not specified, unspecified vomiting type EKG-12 LEAD STAT 12/08/2019 7:21 AM CDT CONSENT/REFUSAL FOR Routine 12/08/2019 6:54 DIAGNOSIS AND AM CDT TREATMENT documented in this encounter Results Basic Metabolic Panel (NA, K, CL, CO2, GLUCOSE, BUN, CREATININE, CA) (12/08/2019 8:30 AM CDT) NA 139 135 - 145 [facility] mmol/L [facility] K 3.9 3.5 - 5.0 [facility] mmol/L [facility] CL 106 98 - 108 mmol/L [facility] CO2 TOTAL 23 23 - 31 mmol/L [facility] AGAP 10 2 - 16 [facility] BUN 8 7 - 23 mg/dL [facility] GLUCOSE 101 70 - 110 mg/dL [facility] CREATININE 0.46 (L) 0.50 - 1.04 [facility] mg/dL [facility] CALCIUM 9.4 8.6 - 10.6 [facility] mg/dL [facility] eGFR Calculation 175.0 mL/min/1.73m2 [facility] (Non-[facility] LABORATORY [place]) eGFR Calculation 212.1 mL/min/1.73m2 [facility] () [facility] Specimen Blood - VENOUS Narrative [place] [facility] [place]omerular Filtration Rate (GFR) [facility] and Staging of Kidney Disease* + [...] tests). Performing Organization Address City/State/Zipcode Phone Number [facility] CLIA: [id number], [address] [place], [place] [address] CBC WITH DIFFERENTIAL (12/08/2019 7:52 AM CDT) [facility] WBC 8.87 4.30 - 11.10 [facility] 10*3/L [facility] RBC 4.07 3.93 - 5.25 [facility] 10*6/L [facility] HGB 13.1 11.6 - 15.0 [facility] g/dL [facility] HCT 38.1 35.7 - 45.2 % [facility] MCV 93.6 80.6 - 95.5 fL [facility] MCH 32.2 25.9 - 32.8 pg [facility] MCHC 34.4 31.6 - 35.1 [facility] g/dL [facility]ITAL [facility] RDW-SD 43.6 39.0 - 49.9 fL [facility] RDW-CV 12.7 12.0 - 15.5 % [facility] PLT 279 166 - 358 [facility] 10*3/L [facility] MPV 9.9 9.5 - 12.9 fL [facility] NRBC/100 WBC 0.0 0.0 - 10.0 /100 [facility] WBCs [facility] NRBC x10^3 <0.01 10*3/L [facility] GRAN MAT (NEUT) % 78.4 % [facility] IMM GRAN % 0.50 % [facility] LYMPH % 14.4 % [facility] MONO % 4.4 % [facility] EOS % 1.7 % [facility] BASO % 0.6 % [facility] GRAN MAT x10^3(ANC) 6.96 1.88 - 7.09 [facility] 10*3/uL [facility] IMM GRAN x10^3 0.04 0.00 - 0.06 [facility] 10*3/uL [facility] LYMPH x10^3 1.28 (L) 1.32 - 3.29 [facility] 10*3/uL [facility] MONO x10^3 0.39 0.33 - 0.92 [facility] 10*3/uL [facility] EOS x10^3 0.15 0.03 - 0.39 [facility] 10*3/uL [facility] BASO x10^3 0.05 0.01 - 0.07 [facility] 10*3/uL [facility] Specimen Blood - VENOUS Performing Organization Address City/State/Zipcode Phone Number [facility] CLIA: [id number], [address] [place] [address] Troponin I (12/08/2019 7:52 AM CDT) Pathologist Sig nature TROPONIN I <0.012 <=0.034 ng/mL [facility] Specimen Blood - VENOUS Narrative Performed At Equal or Less than 0.034 ng/ml---Normal [facility] Note: Cardiac troponin begins to rise 3-4 hours after the onset of ischemia. Repeat in 4-6 hours if the sample was drawn within 3-4 hours of the onset of the symptom and found normal. Between 0.035 and 0.120 ng/mL--- Borderline. Questionable myocardial injury or necros is Note: Serial measurement may be necessary to confirm or exclude the diagnosis of myocardial injury or necrosis; Clinical correlation (symptoms, EKGs, imaging studies, and others) required; Repeat in 4-6 hours if clinically indicated. Equal or Higher than 0.121 ng/mL---Abnormal. Myocardial Injury or Necrosis Likely Biotin has been reported to cause a negative bias, interpret results relative to patient's use of biotin. Performing Organization Address [facility] Phone Number [facility] CLIA: [id number], [address] [place] [address] Urinalysis (12/08/2019 7:52 AM CDT) Pathologist Sig nature APPEARANCE Clear Clear [facility] COLOR Yellow Yellow [facility] PH 6.0 4.8 - 8.0 [facility] SP GRAVITY 1.019 1.003 - 1.030 [facility] GLU U QUAL Normal Normal [facility] BLOOD Negative Negative [facility] KETONES Negative Negative [facility] PROTEIN Negative Negative [facility] UROBILIN Normal Normal [facility] BILIRUBIN Negative Negative [facility] NITRITE Negative Negative [facility] LEUK ANDRE Negative Negative [facility] RBC/HPF <1 0 - 3 HPF [facility] WBC/HPF 4 0 - 5 HPF [facility] BACTERIA Negative Negative [facility] MUCOUS Slight (A) Negative LPF [facility] SQ EPITH 8 HPF [facility] Specimen Urine - URINE, CLEAN CATCH Performing Organization Address [facility] Phone Number [facility] CLIA: [id number], [address] [place] [address] documented in this encounter Visit Diagnoses Diagnosis Vomiting, intractability of vomiting not specified, presence of nausea not specified, unspecified vomiting type - Primary documented in this encounter Administered Medications Medication Order MAR Action Action Date Dose Rate Site NaCl 0.9% (NS) bolus New Bag 12/08/2019 7:52 AM CDT 1,000 mL 99 9 mL/hr infusion 1,000 mL at 999 mL/hr, 1,000 mL, IV Infusion, ONCE, 1 dose, 12/08/19 at 0730, DEVANTE ondansetron (ZOFRAN (PF)) injection 4 mg Given 12/08/2019 7:52 AM CDT 4 mg 4 mg, Slow IV Push, ONCE, 1 dose, 12/08/19 at 0830, DEVANTE documented in this encounter Insurance Payer Benefit Plan / Subscriber ID Effective Dates Phone Addre ss Type Group [facility] MEDICAID OF xxxxxxxxx 2019-Present [phone] [address] Medicaid [place] [id number] [place] [id number] documented as of this encounter
--- NOTE | 2020-01-06 06:22 | EKG ---
Test Date: 2020-01-05 Test Time: 09:52:02 Welt Rander: RODOLFO MEASUREMENT RESULTS: Intervals: Rate: 58 VA: 150 QRSD: 86 QT: 418 QTc: 410 [place]: P: 46 VA: 150 QRS: 77 T: 64 INTERPRETIVE STATEMENTS: Sinus bradycardia with sinus arrhythmia Otherwise normal ECG Compared to ECG 11/24/2019 19:13:46 Sinus rhythm no longer present Myocardial infarct finding no longer present Electronically Signed On 01-06-20 06:20:30 CDT by Faustino Hernandez
== END 2020-01-05 12:33 | disposition home or self-care (01) ==
LOC: ER 09:06
DX: O99.281 Endocrine, nutritional and metabolic diseases complicating pregnancy, first trimester (principal); E86.0 Dehydration; O26.891 Other specified pregnancy related conditions, first trimester; Z3A.13 13 weeks gestation of pregnancy
CPT/HCPCS: 96361; 93005; 85025; 80048; 36415; 83735; 85610; 80076; 80307 ×8; 84702; 81003; 84484; 83880; 71045; 96375; 96374; 99284; J7030 ×2; J2405

== ENCOUNTER 2020-06-17 08:48 | Inpatient (IN) | payer OTHER ==
--- OUTSIDE RECORDS SUMMARY | 2020-06-17 08:53 | XMS REPORT | Continuity of Care Document ---
:2000 Author Organization [facility] t Address [address] [place] [place] [address] Care Team Providers Name Role Phone Arturo Jo MD Attending Clinician Dhiraj WHITT Attending Clinician 2, Lab Attending Clinician Unavailable Ultrasound, Mfm Attending Clinician Unavailable Nurse, Fam Attending Clinician Unavailable Only, Test Attending Clinician Unavailable Doctor Unassigned, Name Attending Clinician Unavailable 1, Room Attending Clinician Unavailable Payers Payer Name Policy Type Policy Number Effective Date Expiration Date S ource Problems This patient has no known problems. Allergies, Adverse Reactions, Alerts Allergy Allergy Status Severity Reaction(s) Onset Inactive Treating Comm ents Source Name Type Date Date Clinician No Known DA Active U 2017-07 [facility] [place] No Known DA Active U 2016-07 [facility] [place] Medications This patient has no known medications. Procedures This patient has no known procedures. Encounters Start End Encounter Admission Attending Care Care Encounter Source Date/Time Date/Time Type Type Clinicians Facility Department ID 2020-06-05 2020-06-05 Routine Jo Xuan [facility] [id number] 09:01:17 10:12:59 Cam [place] [id number] Visit [place] [id number] Professio [phone] [facility] 134 [facility] 2020-05-20 2020-05-[address] [facility] [id number] 15:59:53 16:51:20 Brittani [place] [id number] Visit [place] [id number] Professio [phone] [address] 2020-05-20 2020-05-[address] [facility] [id number] 00:00:00 00:00:00 (Out) Brittani [place] [id number] [place] [id number] Professio [phone] [address] 2020-05-09 2020-05-09 Mortgage Specialist 2, Adc Lab [facility] [id number] 09:55:57 10:10:57 Visit [place] [id number] [place] [id number] Professio [phone] [address] 2020-05-09 2020-05-09 Mortgage Specialist Ultrasound, [facility] [id number] 08:56:49 09:26:49 Visit Adc [facility] [place] [id number] [place] [id number] Professio [phone] [address] 2020-04-23 2020-04-23 Telephone Nurse, [facility] [id number] 00:00:00 00:00:00 [facility] [id number] [place] [id number] Professio [phone] [place] [address] 2020-04-17 2020-04-17 Telephone Jo Xuan [facility] [id number] 00:00:00 00:00:00 Cam [place] [id number] [place] [id number] Professio [phone] [facility] 134 [facility] 2020-04-16 2020-04-16 Routine Xuan Jo [facility] [id number] 09:45:35 14:05:58 Arturo Pace [id number] Visit [place] [id number] Professio [phone] [address] 2020-04-16 2020-04-16 Laboratory Only, Adc [facility] [id number] 13:47:50 14:02:50 Only Test Sanjeev [id number] [place] 4.2.7.2.686 [place] [phone] [id number] 2020-04-16 2020-04-16 Orders Doctor DERECK [id number] 00:00:00 00:00:00 Only Unassigned, RASHID [id number] [place] [facility] [id number] [id number] 2020-04-04 2020-04-04 Mortgage Specialist 1, [facility] [id number] 13:57:02 14:51:56 Visit Room SORTER PRICER [id number] REGIONAL 4.2.7.2.686 MATERNAL [phone] & CHILD [address] [place] [address] 2020-03-19 2020-03-19 Routine Dhiraj [facility] [id number] 11:27:46 12:05:21 Brittani Pace [id number] Visit [place] [id number] Professio [phone] [address] 2020-02-20 2020-02-20 Mortgage Specialist 2, [facility] [id number] 10:55:53 11:10:53 Visit Sanjeev [id number] [place] 4.2.7.2.686 Professio [phone] [address] 2020-02-20 2020-02-20 Initial Xuan Jo [facility] [id number] 09:19:34 10:28:28 Cam Sanjeev [id number] Visit [place] 4.2.7.2.686 Professio [phone] [facility] 134 Building Results This patient has no known results.
--- OUTSIDE RECORDS SUMMARY | 2020-06-17 08:53 | XMS REPORT | Summary of Care ---
:2000 Author Organization [facility] Address [address] [place] [address] Care Team Providers Name Role Phone Tricia Mcmullen Insurance Hmo Destinee Holland [facility] Primary Care Provider [phone] Reason for Visit Reason Comments ROUTINE VISIT Encounter Details Date Type Department Care Team Description 03/19/2020 Routine [facility] Women's Brittani Hearn, Supervision of Visit Healthcare- PA-C high-risk [address] with insufficient 146 [facility] care in [facility], [address] second trimester [place], [place] (Primary Dx) [phone] Allergies No Known Allergiesdocumented as of this encounter (statuses as of 03/19/2020) Medications Medication Sig Dispensed Refills Start Date End Date Status acetaminophen (TYLENOL) Take 1 Tab by 1 bot 1 03/05/2010 Active 160 mg chewable tablet mouth every 6 (six) hours as needed for Pain. 2 1/2 tablets every 4-6 hours as needed for fever/pain VIT Take by mouth. 0 A ctive CALC,IRON,FOLIC ( #2 ORAL) ondansetron (ZOFRAN Take 1 tablet by 14 tablet 0 12/04/2019 Active ODT) 4 mg mouth every 8 disintegrating (eight) hours as tabletIndications: needed for Nausea Generalized abdominal and Vomiting pain (N/V). metoclopramide HCl 10 Take 1 tablet by 30 tablet 1 02/20/2020 Active mg tabletIndications: mouth every 6 Supervision of (six) hours as high-risk needed for Nausea with insufficient and Vomiting care in second (N/V). trimester, Nausea and vomiting during prior to 22 weeks gestation documented as of this encounter (statuses as of 03/19/2020) Active Problems Patient Care Coordination Note iol 06-11-18 Problem Noted Date Nausea and vomiting during prior to 22 weeks gestation 11/17/2017 Susceptible to varicella (non-immune), currently pregn ant 10/20/2017 Overview: Address pp High-risk in second trimester 10/18/2017 Multiparity 10/18/2017 History of delivery 10/18/2017 Overview: 28w4d see scanned records Approved for mekena Flu vaccine need 10/18/2017 Overview: Received today Comments Yes documented as of this encounter (statuses as of 03/19/2020) Resolved Problems Problem Noted Date Resolved Date Headache in 11/17/2017 02/20/2020 Chlamydia infection affecting 10/20/2017 02/20/2020 Overview: DASHA in 3/4 weeks--neg and at 36 weeks Adjustment reaction with anxious mood 10/03/2009 documented as of this encounter (statuses as of 03/19/2020) Immunizations Name Administration Dates Next Due DTAP 06/17/2004, 09/11/2001, 2000, 2000, 2000 HEPATITIS A 09/03/2009 HIB 4 Dose Schedule 06/19/2001, 2000, 2000, 2000 Hep B, Adol or Pedi Dosage 2000, 2000, 0 Influenza Virus Vaccine Quad IM 3+ 10/18/2017 YRS MMR 06/17/2004, 06/19/2001 Pneumococcal 7 Conjugate, PCV7 10/11/2005, 2000 (Prevnar7) Polio (IPV/OPV) 06/17/2004, 2000, 2000, 2000 TDAP 03/23/2018 Varicella (varivax)(chicken pox) 10/11/2005, 06/19/2001 documented as of this encounter Social History Tobacco Use Types Packs/Day Years Used Date Never Smoker Smokeless Tobacco: Never Used Alcohol Use Drinks/Week oz/Week Comments No Comments Yes Sex Assigned at Date Recorded Not on file COVID-19 Exposure Response Date Recorded In the last month, have you been in contact with No / Unsure 03/19/2020 11:27 AM CDT someone who was confirmed or suspected to have Coronavirus / COVID-19? documented as of this encounter Last Filed Vital Signs Vital Sign Reading Time Taken Comments Blood Pressure 101/61 03/19/2020 11:44 AM CDT Pulse 70 03/19/2020 11:44 AM CDT Temperature 36.8 C (98.2 F) 03/19/2020 11:44 AM CDT Respiratory Rate 16 03/19/2020 11:44 AM CDT Oxygen Saturation - - Inhaled Oxygen Concentration - - Weight 57.5 kg (126 lb 12.8 oz) 03/19/2020 11:44 AM CDT Height 160 cm (5' 3") 03/19/2020 11:44 AM CDT Body Mass Index 22.46 03/19/2020 11:44 AM CDT documented in this encounter Patient Instructions Patient InstructionsMary Devlin MA - 03/19/2020 11:30 AM CDT Patient Education Comfort Tips During Talk with yourhealthcare provider before using pain-relieving medicine at any time during your . First trimester tips Nausea Get up slowly. Eat a few unsalted crackers before you get out of bed. Avoid smells that bother you. Eat smallbland low fat, light high-protein meals at frequent intervals. Sip on water, weaktea, or clear soft drinks, like kevin sara.Eat ice chips. Fatigue Take catnaps when you can. Get regular exercise. Accept help from others. Practice good sleep habits, like going to bed and getting up at the same time each day. Use your bed only for sleep and sex. Mood swings Talk about your feelings with others, including other mothers. Limit sugar, chocolate, and caffeine. Eat a healthy diet. Dont skip meals. Get regular exercise. Headaches Get fresh air and exercise. Relax and get enough rest. Check with your healthcare provider before taking any pain medicines. Second trimester tips Here are some suggestions to help you cope: To limit ankle swelling, sit with your feet raised or wear support hose. If you have pain in your groin and stomach(round ligament pain), avoid sudden twisting movements. For leg cramps, flexing your foot often brings immediate relief. You also may try massaging your calf in long, downward strokes, or stretching your legs before going to bed. Get enough exercise and wear shoes with flexible soles. Third trimester tips Reducing heartburn Eat small, light meals throughout the day rather than 3 large ones. Sleep with your upper body raised 6 inches. Dont lie down until 2 hours after you eat. Don't eat greasy, fried, or spicy foods. Avoid citrus fruits and juices. Treating constipation Eat foods high in fiber (whole-grain foods, fresh fruit and vegetables). Drink plenty of water. Get regular exercise. Discuss other medicines (like docusate and psyllium) with your healthcare provider. Taking care of your breasts Avoid using harsh soaps or alcohol, which can cause excessive dryness. Wear nursing bras. They provide more support than regular bras and can be used after ifyou breastfeed. Getting a good nights sleep Take a warm shower before bed. Sleep on a firm mattress. Lie on your side with 1 leg crossed over the other. Use pillows to support arms, legs, and belly. [employer]pop last reviewed this educational content on 04/17/201719994568-3181 [employer]. [address] [place], [place] [id number]. All rights reserved. This information is not intended as a substitute for professional medical care. Always follow your healthcare professional's instructions. Patient Education Adapting to : Second Trimester Keep up the healthy habits you started in your first trimester. You might be a little more tired than normal. So plan your day wisely. Look at the tips below and choose the ones that suit your lifestyle. If you have any questions, check with your healthcare provider. If you work If you can, adjust your work with your employer to fit your needs. Try these tips: If you stand for long periods, find ways to do some tasks while sitting. Also, try to stand with 1 foot resting on a low stool or ledge. Shift your weight from foot to foot often. Wear low-heeled shoes. If you sit, keep your knees level with your hips. Rest your feet on a firm surface. Sit tall withsupport for your low back. If you work long hours, ask about adjusting your schedule. Try taking shorter breaks more often. When you travel The second trimester may be the best time for any travel. Talk to your healthcare provider about anyspecial plans you may need to make. Always: Wear a seat belt. Fasten the lap part under your belly. Wear the shoulder part also. Take breaks often during long trips by car or plane. Move around to stretch your legs. Drink plenty of fluids on flights. The air in plane cabins is very dry. Avoid hot climates or high altitudes if you are not used to them. Avoid places where the food and water might make you sick. Make sure you are up-to-date on all immunizations, including the flu vaccine. This is especially important when traveling overseas. Taking time to relax Find time to rest and relax at work or at home: Take short time-outs daily. Do relaxation exercises. Breathe deeply during stressful times. Try not to take on too much. Plan tasks for times when you have the most energy. Take naps when you can. Or just sit and relax. After week 16, avoid lying on your back for more than a few minutes. Instead, lie on your side. Switch sides often. Continuing as lovers Unless your healthcare provider tells you otherwise, there is no reason to stop having sex now. Blood supply increases to the pelvic area in the second trimester. Because of this, sex might be more enjoyable. Try different positions and see whats best. Also, talk to your partner about any changes in desire. Spotting may happen after sex. Be sure to let your healthcare provider know if there is heavy bleeding. Keeping your environment safe You can still clean house and use scented products. Just take some simple precautions: Wear gloves when using cleaning fluids. Open windows to let in fresh air. Use a fan if you paint. Avoid secondhand smoke. Dont breathe fumes from nail albanian, hair spray, cleansers, or other chemicals. [employer] last reviewed this educational content on 07/18/201719994619-7350 [employer]. [address] [place] [address], [place] [address]. All rights reserved. This information is not intended as a substitute for professional medical care. Always follow your healthcare professional's instructions. Patient Education : Your Second Trimester Changes Each day, you and your baby are changing and growing together. Heres a quick look at whats happening to both of you. How you are changing Even when you dont notice it, your body is adapting to meet the needs of your growing baby. The changes in your body might also affect your moods. Your body Your uterus expands as baby grows. As the weeks go by, you will feel more pressure on your bladder, stomach, and other organs. You may notice some skin color changes on your forehead, nose, or cheeks. Freckles may darken, and moles may grow. You may notice a darker line on your abdomen between your belly button and pubic bone in the midline. Your moods The second trimester is often easier than the first. Still, be prepared for mood swings. These are due to the increase in hormones (chemicals that affect the way organs work) produced by your body. These mood swings are a normal part of . How your baby is growing Month 4 Babys heartbeat may be heard with a Doppler (hand-held ultrasound device) by 9 to 10 weeks.Eyebrows, eyelashes, and fingernails begin to form. Month 5 You may feel your baby move. After a growth spurt, your baby nears 10 inches. Month 6 Babys fingerprints have formed. Your baby weighs about 1to 2 pounds and is about 12 inches long. [employer] last reviewed this educational content on 07/18/201719993881-7144 [employer]. [address] [place] [address]. All rights reserved. This information is not intended as a substitute for professional medical care. Always follow your healthcare professional's instructions. documented in this encounter Progress Notes Brittani Hearn PA-C - 03/19/2020 11:30 AM CDT Chief complaint: Chief Complaint Patient presents with ROUTINE VISIT HPI Barbara Moran is a 19 year old female @ Unknown coming in for PN visit. Denies contractions, vaginal bleeding, LOF, dysuria, or PIH symptoms. + active FM. Histories OB History Para Term AB Living 3 2 1 1 2 SAB TAB Ectopic Multiple Live Births 2 # Outcome Date GA Lbr Carloz/2nd Weight Sex Delivery Anes PTL Lv 3 Current 2 Term 06/06/18 39w0d 6 lb (2.722 kg) F NORMAL SPONT None N RORY 1 05/25/17 26w0d 2 lb 12 oz (1.247 kg) F NORMAL SPONT EPI RORY Complications: Vaginal Bleeding Obstetric Comments Per patient- labor, began to bleed was sent to [facility] Received blood transfusion after delivery x2. Past Medical History: Diagnosis Date Chest pain of unknown etiology For the past two months Chlamydia infection affecting 10/20/2017 Family History Problem Relation Age of Onset Colon Cancer Mother 51 Cancer Maternal Grandmother Heart Maternal Grandmother Arthritis NoFHx defects NoFHx Asthma NoFHx Breast Cancer NoFHx Uterine Cancer NoFHx Ovarian Cancer NoFHx Depression NoFHx Diabetes NoFHx Genetic NoFHx High cholesterol NoFHx Hypertension NoFHx Mental retardation NoFHx Neurological NoFHx Osteoporosis NoFHx Psychiatry NoFHx Family Status Relation Name Status Mo (Not Specified) MGMo NoFHx (Not Specified) No past surgical history on file. Social History Socioeconomic History Marital status: Single Spouse name: Not on file Number of children: Not on file Years of education: Not on file Highest education level: Not on file Occupational History Not on file Social Needs Financial resource strain: Not on file Food insecurity Worry: Not on file Inability: Not on file Transportation needs Medical: Not on file Non-medical: Not on file Tobacco Use Smoking status: Never Smoker Smokeless tobacco: Never Used Substance and Sexual Activity Alcohol use: No Drug use: No Comment: Denied opiate pain med addiction or use in the past Sexual activity: Yes control/protection: None Comment: last intercourse 02/19/2020 Lifestyle Physical activity Days per week: Not on file Minutes per session: Not on file Stress: Not on file Relationships Social connections Talks on phone: Not on file Gets together: Not on file Attends episcopalian service: Not on file Active member of club or organization: Not on file Attends meetings of clubs or organizations: Not on file Relationship status: Not on file Intimate partner violence Fear of current or ex partner: Not on file Emotionally abused: Not on file Physically abused: Not on file Forced sexual activity: Not on file Other Topics Concern Not on file Social History Narrative Currently resides with [employer] in home ; not litter box Buddhist Preference: Mu-Ism Social History Substance and Sexual Activity Sexual Activity Yes control/protection: None Comment: last intercourse 02/19/2020 Labs None Radiology none Allergies Barbara has No Known Allergies. Medications Barbara has a current medication list which includes the following prescription(s): metoclopramide hcl, ondansetron, vit calc,iron,folic, and acetaminophen. Review of Systems Constitutional: Negative for appetite change, fatigue and fever. HENT: Negative for rhinorrhea and sore throat. Eyes: Negative for pain and itching. Respiratory: Negative for cough, chest tightness and shortness of breath. Breasts: Negative for discharge, mass and pain. Cardiovascular: Negative for chest pain, palpitations and leg swelling. Gastrointestinal: Negative for abdominal pain, constipation, diarrhea and nausea. Genitourinary: Negative for bladder incontinence, dysuria, vaginal discharge, difficulty urinating, vaginal pain and pelvic pain. Musculoskeletal: Negative for gait problem and myalgias. Skin: Negative for rash. Neurological: Negative for dizziness and headaches. Psychiatric/Behavioral: Negative for suicidal ideas. The patient is not nervous/anxious. Endocrine: Negative for hair loss. BP 101/61 (BP Location: Left arm, Patient Position: Sitting, BP CUFF SIZE: Adult Medium) | Pulse 70 | Temp 36.8 C (98.2 F) (Oral) | Resp 16 | Ht 5' 3" (1.6 m) | Wt 126 lb 12.8 oz (57.5 kg) | LMP (LMP Unknown) | BMI 22.46 kg/m Pregravid BMI: 21.09 Physical Exam Vitals reviewed. Constitutional: She is oriented to person, place, and time. She appears well- developed and well-nourished. Neck: No mass. No thyromegaly palpated. No neck adenopathy. Cardiovascular: Regular rate and rhythm. Pulmonary/Chest: Normal inspiratory effort. Abdominal: Abdomen is soft. No tenderness present. No hernia palpated or inspected. Neuro/Psychiatric: She has a normal mood and affect. She is oriented to person, place, and time. Skin: Skin normal. Lymphadenopathy: No neck adenopathy present. No axillary adenopathy present. No inguinal adenopathy present. Assessment/Plan SEE OB SUMMARY Return to clinic in 4 weeks. Discussed treatment options. Reviewed patient instructions and provided printed copy. Activity restrictions: As tolerated This visit did not involve counseling and coordination that comprised more than 50% of the visit time. Brittani Hearn PA-C 03/19/2020 1:00 PM documented in this encounter Miscellaneous Notes OB Summary Note - Brittani Hearn PA-C - 03/19/2020 11:30 AM CDTAge: 19 year old GA: Unknown Doing well, no complaints. Unsure of LMP Anatomy scan not scheduled, will have pss assist in scheduling reynold. New ob labs wnl except VZV NI FOLLOW-UP in 4 wks for PN visit. QUAD NEG documented in this encounter Plan of Treatment Date Type Specialty Care Team Description 04/04/2020 [employer] Attendant Visit Obstetrics & Ultrasound, Adc Mfm Gynecology 04/16/2020 Routine Visit Obstetrics & Jo, Xuan Morris MD Gynecology [address] [place] [address] DR. Jean-Baptiste [place] [address] 15 [phone] Health Maintenance Due Date Last Done Comments MENINGOCOCCAL B VACCINES (1 2010 of 2 - Risk Bexsero 2-dose series) HPV VACCINES (1 - 2-dose 2011 series) Depression Screening 2012 WELL CARE VISIT: 12-21 YEARS 2012 (yearly) INFLUENZA VACCINE (#1) 2020 10/18/2017 CHLAMYDIA SCREENING 02/19/2021 02/20/2020, 05/18/2018, 11/17/2017, Additional history exists DTaP,Tdap,and Td Vaccines (7 [...] Name Priority Date/Time Associated Diagnosis Comme nts POCT URINALYSIS W/O Routine 03/19/2020 11:45 Supervision of Ketty cartagena for this SPECIFIC GRAVITY AM CDT high-risk proc edure are in with insufficient the result s care in section. second trimester documented in this encounter Results POCT URINALYSIS W/O SPECIFIC GRAVITY (03/19/2020 11:45 AM CDT) Pathologist Sig nature POCT PH U 5 5 - 8 mg/dl POCT U LEUK EST neg Negative - Negative POCT U NIT neg Negative - Negative POCT U PROT neg Negative - Negative POCT U GLU neg Negative - Negative POCT U KETONE neg Negative - Negative POCT U BLD neg Negative - Negative Specimen Urine - URINE, CLEAN CATCH documented in this encounter Visit Diagnoses Diagnosis Supervision of high-risk with insufficient care in second trimester - Primary documented in this encounter Insurance Payer Benefit Plan / Subscriber ID Effective Dates Phone Addre ss Type Group [place] [id number] 2019-Present Medicaid HEALTH PLAN - HEALTH MANAGED MEDICAID documented as of this encounter
--- OUTSIDE RECORDS SUMMARY | 2020-06-17 08:53 | XMS REPORT | Summary of Care ---
:2000 Author Organization [facility] Address [address] [place] [id number] Care Team Providers Name Role Phone Tricia Mcmullen Insurance Hmo Destinee Holland [facility] Primary Care Provider [phone] Reason for Visit Reason Comments ULTRASOUND (Routine) Status Reason Specialty Diagnoses / Referred By Referred To Procedures Contact Contact Closed Maternal Diagnoses Supervision of high-risk with insufficient care in second trimester High-risk in second trimester Xuan Jo, Medicine Procedures CONSULT MATERNAL MEDICINE ULTRASOUND Preferred Location: [facility] [address] [place] [address] 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 [facility] Andrews Iris icilela care in second trimester; Ultrasound- Mario White, Supervision of high risk pre gnancy in second trimester; [address] Christian MD Encounter for screening for ma lformation using ultrasound [place], [place] [address] [facility] [id number] [id number] [place], [place] [id number] Allergies No Known Allergiesdocumented as of this encounter (statuses as of 04/04/2020) Medications Medication Sig Dispensed Refills Start Date [...] as of this encounter (statuses as of 04/04/2020) Active Problems Patient Care Coordination Note iol [...] as of this encounter (statuses as of 04/04/2020) Resolved Problems Problem Noted Date Resolved Date Headache in 11/17/2017 02/20/2020 Chlamydia infection affecting 10/20/2017 02/20/2020 Overview: DASHA in 3/4 weeks--neg and at 36 weeks Adjustment reaction with anxious mood 10/03/2009 documented as of this encounter (statuses as of 04/04/2020) Immunizations Name Administration Dates Next Due DTAP [...] been in contact with No / Unsure 04/04/2020 1:36 PM CDT someone who was confirmed or suspected to have Coronavirus / COVID-19? documented as of this encounter Last Filed Vital Signs Not on filedocumented in this encounter Plan of Treatment Date Type Specialty Care Team Description 04/16/2020 Routine Obstetrics & Jo, Xuan Morris MD Visit Gynecology [address] [place] [address] DR. Jean-Baptiste [place] [address] 15 [phone] Health Maintenance Due Date Last Done Comments [...] this topic documented as of this encounter Results Not on filedocumented in this encounter Visit Diagnoses Diagnosis Insufficient care in second tri mester Supervision of high risk in se cond trimester Unspecified high-risk Encounter for screening for ma lformation using ultrasound documented in this encounter Insurance Payer Benefit Plan / Subscriber ID Effective Dates Phone Addre ss Type Group [place] [id number] 2019-Present Medicaid HEALTH PLAN - HEALTH MANAGED MEDICAID documented as of this encounter
--- OUTSIDE RECORDS SUMMARY | 2020-06-17 08:53 | XMS REPORT | Summary of Care ---
:2000 Author Organization [facility] - Health Address [address] [place] [address] Care Team Providers Name Role Phone Tricia Mcmullen Insurance Hmo Destinee Holland [facility] Primary Care Provider [phone] Encounter Details Date Type Department Care Team Description 04/16/2020 Orders Only [facility] Doctor Unassigned, No [address] [facility] [place] [address] [address] [place] [address] Allergies No Known Allergiesdocumented as of this encounter (statuses as of 04/16/2020) Medications Medication Sig Dispensed Refills Start Date [...] as of this encounter (statuses as of 04/16/2020) Active Problems Patient Care Coordination Note iol 06-11-18 Problem Noted Date Nausea and vomiting during prior to 22 weeks gestation 11/17/2017 Susceptible to varicella (non-immune), currently pregn ant 10/20/2017 Overview: Address pp High-risk in second trimester 10/18/2017 Multiparity 10/18/2017 History of delivery 10/18/2017 Overview: 28w4d see scanned records Approved for mekena Flu vaccine need 10/18/2017 Overview: Received today Estimated Date of Delivery Comments Yes 07/21/2020 Based on Ultrasound documented as of this encounter (statuses as of 04/16/2020) Resolved Problems Problem Noted Date Resolved Date Headache in 11/17/2017 02/20/2020 Chlamydia infection affecting 10/20/2017 02/20/2020 Overview: DASHA in 3/4 weeks--neg and at 36 weeks Adjustment reaction with anxious mood 10/03/2009 documented as of this encounter (statuses as of 04/16/2020) Immunizations Name Administration Dates Next Due DTAP 06/17/2004, 09/11/2001, 2000, 2000, 2000 HEPATITIS A 09/03/2009 HIB 4 Dose Schedule 06/19/2001, 2000, 2000, 2000 Hep B, Adol or Pedi Dosage 2000, 2000, 0 Influenza Virus Vaccine Quad .5 mL 04/16/202004/16 IM 6+ MO Influenza Virus Vaccine Quad IM 3+ 10/18/2017 YRS MMR 06/17/2004, 06/19/2001 Pneumococcal 7 Conjugate, PCV7 10/11/2005, 2000 (Prevnar7) Polio (IPV/OPV) 06/17/2004, 2000, 2000, 2000 TDAP 03/23/2018 Varicella (varivax)(chicken pox) 10/11/2005, 06/19/2001 documented as of this encounter Social History Tobacco Use Types Packs/Day Years Used Date Never Smoker Smokeless Tobacco: Never Used Alcohol Use Drinks/Week oz/Week Comments No Estimated Date of Delivery Comments Yes 07/21/2020 Based on Ultrasound Sex Assigned at Date Recorded Not on file COVID-19 Exposure Response Date Recorded In the last month, have you been in contact with No / Unsure 04/15/2020 3:41 PM CDT someone who was confirmed or suspected to have Coronavirus / COVID-19? documented as of this encounter Last Filed Vital Signs Not on filedocumented in this encounter Plan of Treatment Date Type Specialty Care Team Description 04/16/2020 Laboratory Only Clinical Medical Jo, Xuan Morris MD [address] [place] [address] [place] [address] [phone] Laboratory Only, Adc Test 05/09/2020 Tool Lathe Operator Visit Obstetrics & Gynecology Ultrasound, A dc [facility] Health Maintenance Due Date Last Done Comments [...] Name Priority Date/Time Associated Diagnosis Comme nts ASSIGNMENT OF BENEFITS Routine 04/16/2020 1:47 PM CDT documented in this encounter Results Not on filedocumented in this encounter Insurance Payer Benefit Plan / Subscriber ID Effective Dates Phone Addre ss Type Group [place] [id number] 2019-Present Medicaid HEALTH PLAN - HEALTH MANAGED MEDICAID documented as of this encounter
--- OUTSIDE RECORDS SUMMARY | 2020-06-17 08:54 | XMS REPORT | Summary of Care ---
:2000 Author Organization [facility] Address [address] [place] [address] Care Team Providers Name Role Phone Tricia Mcmullen Insurance Hmo Destinee Holland [facility] Primary Care Provider [phone] Reason for Visit Reason Comments LAB WORK Auth/Cert Status Reason Specialty Diagnoses / Referred By Referred To Procedures Contact Contact Clinical Medical Diagnoses COVID-19 Adc Lab Laboratory Procedures COVID-19 (ID NOW RAPID TESTING) [address] [place] [address] Encounter Details Date Type Department Care Team Description 04/16/2020 Laboratory Only [facility] Xuan Jo M D [address] [facility] [place] [address] Supervision of high-risk with insufficient care in second trimester; Phlebotomy Only, Adc Test 26 weeks gestation of ; [facility] Cough [address] [place] [address] Allergies No Known Allergiesdocumented as of this [...] Signs Not on filedocumented in this encounter Nursing Notes Jordana Chan - 04/16/2020 2:15 PM CDTcovid documented in this encounter Plan of Treatment Date Type Specialty Care Team Description 05/09/2020 Power Generation Turbine Room Operator Visit Obstetrics & Gynecology Ultrasound, Josey roberto [facility] Health Maintenance Due Date Last Done Comments [...] filedocumented in this encounter Visit Diagnoses Diagnosis Supervision of high-risk with insufficient care in second trimester 26 weeks gestation of state, incidental Cough documented in this encounter Additional Health Concerns Infection Onset Date Last Indicated Resolved Time COVID-19 Rule Out 04/16/2020 04/16/2020 documented as of this encounter Insurance Payer Benefit Plan / Subscriber ID Effective Dates Phone Addre ss Type Group [place] [id number] 2019-Present Medicaid HEALTH PLAN - HEALTH MANAGED MEDICAID documented as of this encounter
--- OUTSIDE RECORDS SUMMARY | 2020-06-17 08:55 | XMS REPORT | Summary of Care ---
:2000 Author Organization [facility] Address [address] [place] [address] Care Team Providers Name Role Phone Tricia Mcmullen Insurance Hmo Destinee Holland [facility] Primary Care Provider [phone] Reason for Visit Reason Comments Results Encounter Details Date Type Department Care Team Description 04/17/2020 Telephone [facility] Women's JoXuan MD Results Healthcare- [address] DRFariba [address] [place] [address] [address] [place] [address] [place] [address] [phone] Allergies No Known Allergiesdocumented as of this encounter (statuses as of 04/18/2020) Medications Medication Sig Dispensed Refills Start Date [...] as of this encounter (statuses as of 04/18/2020) Active Problems Patient Care Coordination Note iol 06-11-18 Problem Noted Date Nausea and vomiting during 11/17/2017 Susceptible to varicella (non-immune), currently pregn ant 10/20/2017 Overview: Address pp High-risk in second trimester 10/18/2017 Multiparity 10/18/2017 History of delivery 10/18/2017 Overview: 28w4d see scanned records Approved for mekena Flu vaccine need 10/18/2017 Overview: Received today Estimated Date of Delivery Comments Yes 07/21/2020 Based on Ultrasound documented as of this encounter (statuses as of 04/18/2020) Resolved Problems Problem Noted Date Resolved Date Headache in 11/17/2017 02/20/2020 Chlamydia infection affecting 10/20/2017 02/20/2020 Overview: DASHA in 3/4 weeks--neg and at 36 weeks Adjustment reaction with anxious mood 10/03/2009 documented as of this encounter (statuses as of 04/18/2020) Immunizations Name Administration Dates Next Due DTAP [...] Signs Not on filedocumented in this encounter Miscellaneous Notes Telephone Encounter - Jagruti Arrington RN - 04/18/2020 12:12 PM CDTSee result note. Jagruti Arrington RN 04/18/2020 12:12 PM Telephone Encounter - Maya Mayorga - 04/17/2020 12:48 PM CDTPt returning call back in regards to results. documented in this encounter Plan of Treatment Date Type Specialty Care Team Description 05/09/2020 Stock Broker Visit Obstetrics & Gynecology Ultrasound, A dc [facility] Health Maintenance Due Date Last Done Comments MENINGOCOCCAL B VACCINES (1 2010 of 2 - Risk Bexsero 2-dose series) HPV VACCINES (1 - 2-dose 2011 series) Depression Screening 2012 WELL CARE VISIT: 12-21 YEARS 2012 (yearly) CHLAMYDIA SCREENING 02/19/2021 02/20/2020, 05/18/2018, 11/17/2017, Additional history exists DTaP,Tdap,and Td Vaccines (7 03/23/2028 03/23/2018, 004, - Td) 09/11/2001, Additional history exists PNEUMOCOCCAL 0-64 YEARS Aged Out 10/11/2005, 2000 N o longer eligible COMBINED SERIES based on patient 's age to complete this topic VARICELLA VACCINES Completed 10/11/2005, 06/19/2001 INFLUENZA VACCINE Completed 04/16/2020, 10/18/2017 MENINGOCOCCAL VACCINE Aged Out No longer eligible based on patient 's age to complete this topic documented as of this encounter Results Not on filedocumented in this encounter Additional Health Concerns Infection Onset Date Last Indicated Resolved Time COVID-19 Rule Out 04/16/2020 04/16/2020 04/17/2020 12: 21 AM CDT documented as of this encounter Insurance Payer Benefit Plan / Subscriber ID Effective Dates Phone Addre ss Type Group [place] [id number] 2019-Present Medicaid HEALTH PLAN - HEALTH MANAGED MEDICAID documented as of this encounter
--- OUTSIDE RECORDS SUMMARY | 2020-06-17 08:55 | XMS REPORT | Summary of Care ---
:2000 Author Organization [facility] Address [address] [place] [address] Care Team Providers Name Role Phone Tricia Mcmullen Insurance Hmo Destinee Holland [facility] Primary Care Provider [phone] Reason for Visit Reason Comments ULTRASOUND (Routine) Status Reason Specialty Diagnoses / Referred By Referred To Procedures Contact Contact Closed Maternal Diagnoses Supervision of high-risk with insufficient care in second trimester 26 weeks gestation of Xuan Jo, Medicine Procedures CONSULT MATERNAL MEDICINE ULTRASOUND Preferred Location: Sanjeev PARSONS [address] [place] [address] DRFariba Abdoulaye [address] [place] [address] Encounter Details Date Type Department Care Team Description 05/09/2020 Picking Machine Operator Helper Visit [facility] Women's AndrewsAnahi Garg MD [address] [facility] [id number] [place] [address] Supervision of high risk in th ird trimester; [facility] Ultrasound, Adc Mfm Supervision of with insufficie nt care in third trimester; [address] [place] [address] Encounter for other screening follow-up Drive, [address] [place] [address] Allergies No Known Allergiesdocumented as of this encounter (statuses as of 05/09/2020) Medications Medication Sig Dispensed Refills Start Date [...] as of this encounter (statuses as of 05/09/2020) Active Problems Patient Care Coordination Note iol [...] as of this encounter (statuses as of 05/09/2020) Resolved Problems Problem Noted Date Resolved Date Headache in 11/17/2017 02/20/2020 Chlamydia infection affecting 10/20/2017 02/20/2020 Overview: DASHA in 3/4 weeks--neg and at 36 weeks Adjustment reaction with anxious mood 10/03/2009 documented as of this encounter (statuses as of 05/09/2020) Immunizations Name Administration Dates Next Due DTAP [...] been in contact with No / Unsure 05/09/2020 8:56 AM CDT someone who was confirmed or suspected to have Coronavirus / COVID-19? documented as of this encounter Last Filed Vital Signs Not on filedocumented in this encounter Plan of Treatment Date Type Specialty Care Team Description 05/09/2020 Picking Machine Operator Helper Visit Phlebotomy 2, Adc Lab Health Maintenance Due Date Last Done Comments [...] this encounter Visit Diagnoses Diagnosis Supervision of high risk in th ird trimester Unspecified high-risk Supervision of with insufficie nt care in third trimester Insufficient care Encounter for other screening follow-up documented in this encounter Insurance Payer Benefit Plan / Subscriber ID Effective Dates Phone Addre ss Type Group [place] [id number] 2019-Present Medicaid HEALTH PLAN - [facility] MANAGED MEDICAID documented as of this encounter
--- OUTSIDE RECORDS SUMMARY | 2020-06-17 08:55 | XMS REPORT | Summary of Care ---
:2000 Author Organization [facility] Address [address] [place] [address] Care Team Providers Name Role Phone Tricia Mcmullen Insurance Hmo Destinee Holland [facility] Primary Care Provider [phone] Reason for Visit Reason Comments LAB Encounter Details Date Type Department Care Team Description 05/09/2020 Hot Molder Visit [facility] Xuan Jo MD [address] [place] [address] [address] [place] [address] Supervision of Professional Office 2, Adc Lab high-risk Building Phlebotomy with ins ufficient Lab care in Professional Office second t [address] , [address] [place] [address] Allergies No Known Allergiesdocumented as [...] on filedocumented in this encounter Nursing Notes Yolande Lyn - 05/09/2020 10:00 AM CDT Venipuncture collection performed by clean technique on the right anticubitus. Total of 1 attempts were made. Slight pressure and a bandage/dressing were applied to the site(s). The patient experiencedno complications. The following specimens were processed according to instructions and sent to [facility] laboratories per lab order on 05/09/20: LT BLUE SST 2 RED 1 LAV 2 PPT DK GREEN (LiHep) DK GREEN (SodH) [place]O DK BLUE (K2) DK BLUE (S) ACD Blood Culture NIPT/NTD documented in this encounter Plan of Treatment Date Type Specialty Care Team Description 05/20/2020 Routine Obstetrics & Brittani Hearn, Visit Gynecology JOSE EDUARDO [address] [place] [address] Name Type Priority Associated Diagnoses Date/Ti me ADC OR BERT ONLY - LAB Routine Supervision of high -risk 05/09/2020 10:59 AM CDT RPR with insufficient care in second trimester Health Maintenance Due Date Last Done Comments [...] Name Priority Date/Time Associated Diagnosis Comme nts HIV 1/2 AG-AB WITH Routine 05/09/2020 10:59 Supervision of Res ults for this REFLEX AM CDT high-risk procedur e are in with insufficient the result s care in section. second trimester CBC WITH DIFF Routine 05/09/2020 10:59 Supervision of Results for this AM CDT high-risk procedur e are in with insufficient the result s care in section. second trimester GLUCOSE 1 HOUR POST Routine 05/09/2020 10:59 Supervision of Re sults for this PRANDIAL AM CDT high-risk procedur e are in with insufficient the result s care in section. second trimester documented in this encounter Results HIV 1/2 AG-AB WITH REFLEX (05/09/2020 10:59 AM CDT) Pathologist Sig nature HIV 1/2 Ag-Ab with Negative Negative [facility] HIV Semi-quantitative 0.11 [facility] Specimen Blood Narrative Performed At Non-reactive for HIV-1 antigen and HIV-1/HIV-2 [facility] antibodies. No laboratory evidence of HIV infection. Repeat in 2-4 weeks if acute HIV infection is suspected. Performing Organization Address City/State/Zipcode Phone Number [facility] CLIA: [id number] [place], [place] [id number] LAB[address]AT[address] CBC WITH DIFF (05/09/2020 10:59 AM CDT) Pathologist Sig nature WBC 9.40 4.30 - 11.10 [facility] 10*3/L HOSPITAL LABORATORY RBC 3.58 (L) 3.93 - 5.25 [facility] 10*6/L HOSPITAL LABORATORY HGB 11.5 (L) 11.6 - 15.0 [facility] g/dL HOSPITAL LABORATORY HCT 34.2 (L) 35.7 - 45.2 % [facility] MCV 95.5 80.6 - 95.5 fL [facility] MCH 32.1 25.9 - 32.8 pg [facility] MCHC 33.6 31.6 - 35.1 [facility] g/dL [facility] RDW-SD 45.9 39.0 - 49.9 fL [facility] RDW-CV 13.1 12.0 - 15.5 % [facility] PLT 296 166 - 358 [facility] 10*3/L [facility] MPV 9.5 9.5 - 12.9 fL [facility] NRBC/100 WBC 0.0 0.0 - 10.0 /100 [facility] WBCs [facility] NRBC x10^3 <0.01 10*3/L [facility] GRAN MAT (NEUT) % 77.0 % [facility] IMM GRAN % 0.30 % [facility] LYMPH % 15.9 % [facility] MONO % 5.4 % [facility] EOS % 1.0 % [facility] BASO % 0.4 % [facility] GRAN MAT x10^3(ANC) 7.24 (H) 1.88 - 7.09 [facility] 10*3/uL HOSPITAL LABORATORY IMM GRAN x10^3 0.03 0.00 - 0.06 [facility] 10*3/uL HOSPITAL LABORATORY LYMPH x10^3 1.49 1.32 - 3.29 [facility] 10*3/uL HOSPITAL LABORATORY MONO x10^3 0.51 0.33 - 0.92 [facility] 10*3/uL HOSPITAL LABORATORY EOS x10^3 0.09 0.03 - 0.39 [facility] 10*3/uL HOSPITAL LABORATORY BASO x10^3 0.04 0.01 - 0.07 [facility] 10*3/uL HOSPITAL LABORATORY Specimen Blood Performing Organization Address City/State/Zipcode Phone Number [facility] CLIA: [id number] [place] [address] GLUCOSE 1 HOUR POST PRANDIAL (05/09/2020 10:59 AM CDT) Pathologist Sig nature GLUC 1 HR 67 (L) 120 - 170 mg/dL [facility] Specimen Blood Performing Organization Address City/State/Zipcode Phone Number [facility] CLIA: [id number] [place] [address] documented in this encounter Visit Diagnoses Diagnosis Supervision of high-risk with insufficient care in second trimester documented in this encounter Insurance Payer Benefit Plan / Subscriber ID Effective Dates Phone Addre ss Type Group [place] [id number] 2019-Present Medicaid HEALTH PLAN - HEALTH MANAGED MEDICAID documented as of this encounter
--- OUTSIDE RECORDS SUMMARY | 2020-06-17 08:55 | XMS REPORT | Summary of Care ---
:2000 Author Organization [facility] Address [address] [place] [address] Care Team Providers Name Role Phone Tricia Mcmullen Insurance Hmo Destinee Holland [facility] Primary Care Provider [phone] Reason for Visit Reason Comments Results Encounter Details Date Type Department Care Team Description 04/23/2020 Telephone [facility] Family Medicine - Nurse, Adc Fam Results [address] [place] [address] Allergies No Known Allergiesdocumented as of this encounter (statuses as of 04/23/2020) Medications Medication Sig Dispensed Refills Start Date [...] as of this encounter (statuses as of 04/23/2020) Active Problems Patient Care Coordination Note iol [...] as of this encounter (statuses as of 04/23/2020) Resolved Problems Problem Noted Date Resolved Date Headache in 11/17/2017 02/20/2020 Chlamydia infection affecting 10/20/2017 02/20/2020 Overview: DASHA in 3/4 weeks--neg and at 36 weeks Adjustment reaction with anxious mood 10/03/2009 documented as of this encounter (statuses as of 04/23/2020) Immunizations Name Administration Dates Next Due DTAP [...] this encounter Miscellaneous Notes Telephone Encounter - Sarah Dennison RN - 04/23/2020 4:28 PM CDT Informed patient COVID-19 (PCR MOLECULAR TESTING) Order: [id number] Status: Final result Visible to patient: No (not released) Dx: Cough; 26 weeks gestation of pregnanc... Specimen Information: NASOPHARYNGEAL SWAB Component Ref Range & Units 7d ago SARS-CoV-2 PCR Not Detected Not Detected Resulting Agency [facility] Your COVID 19 testing results were negative. At this time, the COVID 19 virus was NOT found in your sample. Continue to protect yourself by wearing a facemask and washing your hands frequently. If youhave not had symptoms, you may return to work immediately. If you had symptoms, you may return to work or school when you are feeling better and have not had a fever for 24 hours or more without takingfever reducing medications such as acetaminophen or ibuprofen and are 10 days from your first symptoms. Wear a mask until it has been greater than 14 days from when your first symptoms appeared. If you are a [facility] or contract employee or student, please refer to this website for more information https: [email or web address]. If you feel you are not getting better, please call the [facility] at [phone] or toll free to schedule a telehealth visit or face to face visit with a provider. Most acute illnesses resolve within 7 days. Telephone Encounter - Rebeca Molina - 04/23/2020 12:50 PM CDTPt requesting covid results. documented in this encounter Plan of Treatment Date Type Specialty Care Team Description 05/09/2020 Hospital Supervisor Visit Obstetrics & Gynecology Ultrasound, Josey roberto [facility] Health Maintenance Due Date Last Done [...] ss Type Group [place] [id number] 2019-Present Medicaid HEALTH PLAN - HEALTH MANAGED MEDICAID documented as of this encounter
--- OUTSIDE RECORDS SUMMARY | 2020-06-17 08:55 | XMS REPORT | Summary of Care ---
:2000 Author Organization [facility] Address [address] [place] [address] Care Team Providers Name Role Phone Ivanna Mcmullenh Insurance Hmo Xuan Jo MD Primary Care Provider Encounter Details Date Type Department Care Team Description 05/20/2020 Letter (Out) [facility] Women's Kerry Hearn [facility] [address] [facility] 146 [facility] [address] [place] [address] [place] [address] [phone] Allergies No Known Allergiesdocumented as of this encounter (statuses as of 05/20/2020) Medications Medication Sig Dispensed Refills Start Date [...] as of this encounter (statuses as of 05/20/2020) Active Problems Patient Care Coordination Note iol [...] as of this encounter (statuses as of 05/20/2020) Resolved Problems Problem Noted Date Resolved Date Headache in 11/17/2017 02/20/2020 Chlamydia infection affecting 10/20/2017 02/20/2020 Overview: DASHA in 3/4 weeks--neg and at 36 weeks Adjustment reaction with anxious mood 10/03/2009 documented as of this encounter (statuses as of 05/20/2020) Immunizations Name Administration Dates Next Due DTAP [...] Polio (IPV/OPV) 06/17/2004, 2000, 2000, 2000 TDAP 05/20/2020, 03/23/2018 Varicella (varivax)(chicken pox) 10/11/2005, 06/19/2001 documented [...] been in contact with No / Unsure 05/20/2020 3:59 PM PROCESS ASSISTANT someone who was confirmed or suspected to have Coronavirus / COVID-19? documented as of this encounter Last Filed Vital Signs Not on filedocumented in this encounter Plan of Treatment Date Type Specialty Care Team Description 06/05/2020 Routine Obstetrics & Jo, Xuan Morris MD Visit Gynecology [address] [place] [address] DR. Jean-Baptiste [place], [place] [address] [phone] Health Maintenance Due Date Last Done Comments [...] ss Type Group [place] [id number] 2019-Present Medicaid HEALTH PLAN - HEALTH MANAGED MEDICAID documented as of this encounter
--- OUTSIDE RECORDS SUMMARY | 2020-06-17 08:55 | XMS REPORT | Summary of Care ---
:2000 Author Organization [facility] Address [address] [place] [id number] Care Team Providers Name Role Phone Tricia Mcmullen Insurance H[employer] Destinee Holland [facility] Primary Care Provider [phone] Reason for Referral (Routine) Status Reason Specialty Diagnoses / Referred By Referred To Procedures Contact Contact Authorized Maternal Diagnoses Supervision of high-risk with insufficient care in second trimester 26 weeks gestation of Xuan Jo, Medicine Procedures CONSULT MATERNAL MEDICINE ULTRASOUND Preferred Location: [facility] [address] [place] [address] [address] [place] [address] Reason for Visit Reason Comments ROUTINE VISIT VACCINES Cough Auth/Cert Status Reason Specialty Diagnoses / Referred By Referred To Procedures Contact Contact Clinical Medical Diagnoses COVID-19 Adc Lab Laboratory Procedures COVID-19 (ID NOW RAPID TESTING) [address] [place] [address] Encounter Details Date Type Department Care Team Description 04/16/2020 Routine [facility] Women's Xuan Jo am, MD Supervision of high-risk with insufficient care in second trimester (Primary Dx); Visit Healthcare- [address] [place] [address] 26 weeks g estation of ; Sanjeev FRANKS Needs flu shot; [address] [place] [address], [address] [place], [place] Poor social situation; [place] [address] Nausea and vomiting during [id number] Allergies No Known Allergiesdocumented as of [...] Sign Reading Time Taken Comments Blood Pressure 97/62 04/16/2020 10:08 AM CDT Pulse 77 04/16/2020 10:08 AM CDT Temperature 36.8 C (98.3 F) 04/16/2020 10:08 AM CDT Respiratory Rate 18 04/16/2020 10:08 AM CDT Oxygen Saturation - - Inhaled Oxygen Concentration - - Weight 58.3 kg (128 lb 9.6 oz) 04/16/2020 10:08 AM CDT Height 160 cm (5' 3") 04/16/2020 10:08 AM CDT Body Mass Index 22.78 04/16/2020 10:08 AM CDT documented in this encounter Progress Notes Xuan Jo MD - 04/16/2020 10:00 AM CDT ROUTINE VISIT 04/16/2020 9:52 AM SUBJECTIVE Barbara Moran is a 19 year old at 26w2d who presents for routine visit. She denies contractions, loss of fluid, vaginal bleeding, and signs or symptoms of pre-eclampsia. Good movement. She C/O nausea, vomiting, cough, rhinorrhea, diarrhea, SOB. -Nausea and vomiting throughout . States that controlled with Reglan but did not take it today. She is making herself cough to vomit to feel better as feels terrible with the nausea. -Diarrhea was 3-4 times yesterday, which has resolved. 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 - Patient reports she is getting evicted from her house reports she has a RV to live in as her family won't allow her to live with them OBJECTIVE LMP (LMP Unknown) FH: 20 cm FHT: 143 Physical Exam: Gen: A&Ox3, NAD CV: RRR, no m/g/r Pulm: CTAB, no w/r/r Abd: Soft, gravid, NTTP, no rebound or guarding Ext: No calf tenderness ASSESSMENT: Barbara Moran is a 19 year old at 26w2d who presents for routine visit. PLAN See OB Summary RTC in 4 weeks Sent patient for covid testing Scribe's Attestation IJosemanuel am scribing for, and in the presence of, Xuan Jo MD who performed the services described here-in. Josemanuel Wray, April 16, 2020, 9:52 AM Physician's Attestation I have seen and examined the patient and agreed with the note above Xuan Jo MD 04/16/2020 3:36 PM documented in this encounter Miscellaneous Notes OB Summary Note - Josemanuel Wray - 04/16/2020 10:00 AM CDT Age: [age] year old GA: 26w2d -Nausea and vomiting throughout . States that controlled with Reglan but did not take it today. She is making herself cough to vomit to feel better as feels terrible with the nausea. -Diarrhea was 3-4 times yesterday, which has resolved. 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 Discussed adequate hydration and PO intake. - Poor social situation: Patient reports she is getting evicted from her house reports she has a RVto live in as her family won't allow her to live with them Anatomy scan on 04/04/2020 showed No obvious abnormalities but some suboptimal views (24 10/22) --> dated by this USG. follow-up USG ordered 28 wk labs and serologies ordered Received flu vaccines today Sent patient for Covid testing RTC in 4 weeks Scribe's Attestation IJosemanuel , am scribing for, and in the presence of, Xuan Jo MD who performed the services described here-in. Josemanuel Wray, April 16, 2020, 9:48 AM Physician's Attestation I have seen and examined the patient and agreed with the note above I have seen and examined the patient and agreed with the note above Xuan Jo MD 04/16/2020 3:35 PM documented in this encounter Plan of Treatment Date Type Specialty Care Team Description 05/09/2020 [employer] Visit Obstetrics & Gynecology Ultrasound, A dc Mfm Name Type Priority Associated Diagnoses Date/Ti me COVID-19 (PCR MOLECULAR LAB Routine Supervision of hi gh-risk 04/16/2020 1:58 PM TESTING) with CDT insufficient care in second trimes ter 26 weeks gestation of Cough Name Type Priority Associated Diagnoses Order S chedule GLUCOSE 1 HOUR POST LAB Routine Supervision of high-r isk Expected: 04/16/2020, PRANDIAL with Expires: 04/19 insufficient care in second trimester CBC WITH DIFF LAB Routine Supervision of high-risk Ex pected: 04/16/2020, with Expires: 06/19 insufficient care in second trimester WORKUP, BLOOD LAB Routine Supervision of hig h-risk Expected: 04/16/2020, BANK with Expires: 06/19 insufficient care in second trimester ADC OR BERT ONLY - LAB Routine Supervision of high -risk Expected: 04/16/2020, RPR with Expires: 06/19 insufficient care in second trimester HIV 1/2 AG-AB WITH LAB Routine Supervision of high-ri sk Expected: 04/16/2020, REFLEX with Expires: 03/20 insufficient care in second trimester COVID-19 (PCR MOLECULAR LAB Routine Supervision of hi gh-risk Expected: 04/16/2020, TESTING) with Expires: 04/19 insufficient care in second trimes ter 26 weeks gestation of Cough Health Maintenance Due Date Last Done Comments [...] Name Priority Date/Time Associated Diagnosis Comme nts FLU VACC Routine 04/16/2020 9:59 Supervision of ([id number]), 6+ AM CDT high-risk MONTHS, IM, QUAD with insufficient care in second trimester Needs flu shot POCT URINALYSIS W/O Routine 04/16/2020 Supervision of Result s for this SPECIFIC GRAVITY high-risk proc edure are in with insufficient the result s care in section. second trimester documented in this encounter Results POCT URINALYSIS W/O SPECIFIC GRAVITY (04/16/2020) Pathologist Sig nature POCT PH U N/A 5 - 8 mg/dl POCT U LEUK EST N/A Negative - Negative POCT U NIT N/A Negative - Negative POCT U PROT NEG Negative - Negative POCT U GLU NEG Negative - Negative POCT U KETONE N/A Negative - Negative POCT U BLD N/A Negative - Negative Specimen Urine - URINE, CLEAN CATCH documented in this encounter Visit Diagnoses Diagnosis Supervision of high-risk with insufficient care in second trimester - Primary 26 weeks gestation of state, incidental Needs flu shot Need for prophylactic vaccination and in oculation against influenza Cough Poor social situation Unspecified psychosocial circumstance Nausea and vomiting during documented in this encounter Additional Health Concerns Infection Onset Date Last Indicated Resolved Time COVID-19 Rule Out 04/16/2020 04/16/2020 documented as of this encounter Insurance Payer Benefit Plan / Subscriber ID Effective Dates Phone Addre ss Type Group [facility] [id number] 2019-Present Medicaid HEALTH PLAN - HEALTH MANAGED MEDICAID documented as of this encounter
[2020-06-17] MEDS ORDERED: BUTORPHANOL 1 MG/ML INJ IV PRN (08:56)
[2020-06-17] MEDS ORDERED: PENICILLIN 5 MU in NA CHLORIDE 0.9% 100 ML IV ONE (08:56)
[2020-06-17] MEDS ORDERED: Ringers Lactate 1,000 ML IV PRN (08:56)
[2020-06-17] MEDS ORDERED: METHYLERGONOVINE 0.2MG/ML AMP IM PRN (08:56)
[2020-06-17] MEDS ORDERED: PROMETHAZINE INJ 25 MG/ML AMP IM PRN (08:56)
--- OUTSIDE RECORDS SUMMARY | 2020-06-17 08:56 | XMS REPORT | Summary of Care ---
:2000 Author Organization [facility] Address [address] [place] [id number] Care Team Providers Name Role Phone Ivanna Mcmullenh Insurance Hmo Xuan Jo MD Primary Care Provider Reason for Visit Reason Comments ROUTINE VISIT Encounter Details Date Type Department Care Team Description 06/05/2020 Routine [facility] Xuan Jo, Supervisi on of high risk in third trimester (Primary Dx); Visit Women's MD 33 weeks gestation of ; [facility]- [address] [place] [address] reflux disease, unspecified whether esophagitis present [facility] [address] [facility] [address], [address] [place] [phone] Allergies No Known Allergiesdocumented as of this encounter (statuses as of 06/05/2020) Medications Medication Sig Dispensed Refills Start End Date Status Date acetaminophen Take 1 Tab by 1 bot 1 Ac tive (TYLENOL) 160 mg mouth every 6 0 chewable tablet (six) hours as needed for Pain. 2 1/2 tablets every 4-6 hours as needed for fever/pain VIT Take by 0 Active CALC,IRON,FOLIC mouth. ( #2 ORAL) metoclopramide HCl 10 Take 1 tablet 30 tablet 1 Active mg tabletIndications: by mouth 0 Supervision of every 6 (six) high-risk hours as with insufficient needed for care in Nausea and second trimester, Vomiting Nausea and vomiting (N/V). during prior to 22 weeks gestation famotidine 20 mg Take 1 tablet 60 tablet 1 Active tabletIndications: by mouth 2 0 Gastroesophageal (two) times reflux disease, daily. unspecified whether esophagitis present ondansetron (ZOFRAN Take 1 tablet 14 tablet 0 Discontinued ODT) 4 mg by mouth 0 20 (Patient disintegrating every 8 Repor alisha) tabletIndications: (eight) hours Generalized abdominal as needed for pain Nausea and Vomiting (N/V). documented as of this encounter (statuses as of 06/05/2020) Active Problems Patient Care Coordination Note iol 06-11-18 Problem Noted Date Nausea and vomiting during 11/17/2017 Susceptible to varicella (non-immune), currently pregn ant 10/20/2017 Overview: Address pp High-risk in third trimester 10/18/2017 Multiparity 10/18/2017 History of delivery 10/18/2017 Overview: 28w4d see scanned records Approved for mekena Flu vaccine need 10/18/2017 Overview: Received today Estimated Date of Delivery Comments Yes 07/21/2020 Based on Ultrasound documented as of this encounter (statuses as of 06/05/2020) Resolved Problems Problem Noted Date Resolved Date Headache in 11/17/2017 02/20/2020 Chlamydia infection affecting 10/20/2017 02/20/2020 Overview: DASHA in 3/4 weeks--neg and at 36 weeks Adjustment reaction with anxious mood 10/03/2009 documented as of this encounter (statuses as of 06/05/2020) Immunizations Name Administration Dates Next Due DTAP [...] been in contact with No / Unsure 06/05/2020 9:00 AM MANAGER LEGAL someone who was confirmed or suspected to have Coronavirus / COVID-19? documented as of this encounter Last Filed Vital Signs Vital Sign Reading Time Taken Comments Blood Pressure 113/72 06/05/2020 9:29 AM MANAGER LEGAL Pulse 70 06/05/2020 9:29 AM MANAGER LEGAL Temperature 36.9 C (98.4 F) 06/05/2020 9:29 AM MANAGER LEGAL Respiratory Rate 18 06/05/2020 9:29 AM MANAGER LEGAL Oxygen Saturation - - Inhaled Oxygen Concentration - - Weight 60.1 kg (132 lb 6.4 oz) 06/05/2020 9:29 AM MANAGER LEGAL Height 160 cm (5' 3") 06/05/2020 9:29 AM MANAGER LEGAL Body Mass Index 23.45 06/05/2020 9:29 AM MANAGER LEGAL documented in this encounter Patient Instructions Patient InstructionsJarrod Hammer - 06/05/2020 8:45 AM CST Patient Education Tailor Sit, Trunk Turn for Back Pain During Before trying these exercises, talk to your healthcare provider to make sure they are safe for you. Ask your healthcare provider how many times to do each exercise. Tailor sit Trunk turns Tailor sit This exercise makes your thigh, pelvic, and hip muscles more flexible. 1. Sit on the floor with the soles of your feet together. Your back should be straight. 2. Gently lean forward until you feel a mild stretch inyour hip and thigh muscles. Your back should remain straight. Dont push down on your legs with your hands. 3. Hold and count to 5, then relax. Trunk turns This helps make your trunk (from your shoulders to your hips) more flexible. 1. Sit on the floor with your legs crossed. Your back should be straight. 2. Put your left hand on your right knee. Rest your right hand on the floor to support yourself and help you balance. 3. Slowly twist right. To do this, turn your head, shoulders, and chest as far right as you comfortably can. Keep your hips, knees, and feet in place. 4. Hold for 5 counts. Then change sides and slowly twist left. IntooBR last reviewed this educational content on 08/18/201719996006-4022 The [employer]. All rights reserved. This information is not intended as a substitute for professional medical care. Always follow your healthcare professional's instructions. Patient Education Relieving Back Pain During : Wall Stretch, Body Bend Before trying these exercises, talk to your healthcare provider to make sure they are safe for you. Ask your healthcare provider how many times to do each exercise. Wall stretch Body bend Wall stretch This strengthens and loosens the muscles in your upper back: 4. Lean against a wall with a firm pillow or rolled towel under your shoulder blades. Your feet should be about 12 inches from the wall and shoulder-width apart. Point your chin down. 5. Breathe in. Push your shoulders, neck, and head against the wall. You will feel a stretch in yourshoulders. 6. Hold for 5 counts. Then breathe out, and relax your shoulders and neck. Body bend This strengthens your back and buttocks muscles: 5. Stand with your legs shoulder-width apart. Put your hands on your upper thighs and bend your knees slightly. 6. Slowly bend forward at the hips. Push your hips back and keep your shoulders up. Make sure your back is straight. Youll feel a stretch in your upper thighs. Youll also feel your back muscles holding you in position. 7. Hold for 5 counts, then straighten. IntooBR last reviewed this educational content on 08/18/201719992390-2122 The Mobile [employer]. All rights reserved. This information is not intended as a substitute for professional medical care. Always follow your healthcare professional's instructions. Patient Education Back Pain During : Moving Safely Learning the proper ways to bend, lift, and carry objects may help relieve back strain. It will alsohelp you protect your back after your baby is born. Remember, if youre having trouble protecting your back, its OK to ask the people around you for help! Bending Lifting Carrying Bending To protect your back as you bend: Put 1 foot slightly in front of the other. Bend at the knees and hips, pushing your hips backward. Keep your upper body as straight as you can. Face forward. Try to keep your ears, shoulders, and hips in a line. Dont hold your breath. Lifting To lift a large object or a child: Get as close to the load as you can. Face forward, to help keep your ears and shoulders aligned. Use the muscles in your thighs and buttocks to stand up. As you lift, tighten your stomach and pelvic floor muscles. Dont hold your breath. Avoid twisting. Carrying To carry a load safely: Carry an object or child in front of you, not resting on your hip. Break up your load into 2 smaller bags, if you can. Carry 1 bag on each side to maintain balance.Or, break the load into smaller ones and take more trips. Try to tighten your stomach and pelvic floormuscles as you walk. This helps take weight off your back. IntooBR last reviewed this educational content on 08/18/201719998288-4342 The Mobile [employer]. All rights reserved. This information is not intended as a substitute for professional medical care. Always follow your healthcare professional's instructions. Patient Education Back Pain During : Positioning Yourself When standing, resting a foot on a low block can ease back pain. You likely position yourself differently now than you did before you were . Did you know that standing, sitting, or lying in certain ways can lead to back pain? To ease pain, use positions thatsupport your body comfortably. Tips for good posture Using good posture means holding yourself so that your spine is aligned and your muscles can work without strain. To use good posture: Raise your chest and head. Try to keep your ears lined up over your shoulders. Use your stomach muscles to pull in your stomach. This reduces the amount of weight your back must support. Keep your pelvis level. Think of your pelvis as a bowl of water that will spill if it tips too far forward or backward. Standing If you must stand for long periods, try to change positions every 15 minutes. This gives your muscles a break. When standing, also: Keep your legs slightly apart. This helps you balance your weight. Rest one foot on a book, ledge, or low stool. Every few minutes, switch legs. Wear comfortable shoes with padded soles and arch support, like athletic shoes. Sitting When sitting in a chair or car, make sure your spines lumbar curve is supported. Use a chair withlumbar support built in, or put a firm pillow against your lower back. Also try the following: Sit with your knees slightly lower than your hips. Dont cross your legs. Take deep breaths often. This helps keep your spine and stomach in the best position. Vary your activity each hour. For instance, get up from your desk and take a 5-minute walk aroundthe office. Lying down To lie safely and comfortably: Lie on your side with your knees slightly bent. This takes pressure offyour uterus and improvesblood flow to your baby. Place pillows under your abdomen and between your knees. To get out of bed, roll onto your side. Use your arms to push yourself into a seated position. Scoot to the edge of the bed and place your feet on the floor. Lean forward, then use your leg muscles to stand. Consider investing in a firm mattress. Lifting Tip to safely lift: Do not bend over from the waist to pick things upsquat down, bend your knees, and keep your back straight. IntooBR last reviewed this educational content on 08/18/201719999991-6024 The Mobile [employer]. All rights reserved. This information is not intended as a substitute for professional medical care. Always follow your healthcare professional's instructions. Patient Education Kick Counts Its normal to worry about your babys health. One way you can knowyour babys doing well isto record the babys movements once a day. This is called a kick count. Remember to take your kick count records to all your appointments with your healthcare provider. How to count kicks Time how long it takes you to feel 10 kicks, flutters, swishes, or rolls. Ideally, you want to feel at least 10 movements in 2 hours. You will likely feel 10 movements in less time than that. Starting at 28 weeks, count your baby's movements daily. Follow your healthcare provider's instructions for kick counting. Here are tips for counting kicks: Choose a time when the baby is active, such as after a meal. Sit comfortably or lie on your side. The first time the baby moves,write downthe time. Count each movement until the baby has moved 10times. This can take from 20 minutes to 2hours. If you haven't felt 10 kicks by the end of the second hour, wait a few hours. Then try again. Try to do it at the same time each day. When to call your healthcare provider Call your healthcare provider right awayif: You do a couple sets of kick counts during the day and your baby moves fewer than 10times [id number]. Your baby moves much less often than on thedays before. You haven't felt your baby move all day. IntooBR last reviewed this educational content on 02/16/202019994384-9198 The Mobile [employer]. All rights reserved. This information is not intended as a substitute for professional medical care. Always follow your healthcare professional's instructions. Patient Education Adapting to : Third Trimester Although common during , some discomforts may seem worse in the final weeks. Simple lifestyle changes can help. Take care of yourself. And ask your partner to help out with small tasks. Limiting leg problems Ways to combat leg issues: Wear support hose all day. Avoid snug shoes and clothes that bind, like tight pants and socks with elastic tops. Sit with your feet and legs raised often. Caring for your breasts Tips to follow include: Wash with plain water. Avoid using harsh soaps or rubbing alcohol. They may cause dryness. Wear a nursing bra for extra support. It can also hide any leaks from your nipples. Controlling hemorrhoids Ways to avoid hemorrhoids include: Eat foods that are high in fiber. Also, exercise and drink enough fluids. This will reduce constipation and hemorrhoids. Sleep and nap on your side. This limits pressure on the veinsof your rectum. Try not to stand or sit for long periods. Controlling back pain As your body changes during , your back must work in new ways. Back pain is due to many causes. Physical changes in your body can strain your back and its supporting muscles. Also, hormones (chemicals that carry messages throughout the body) increase during . This can affect howyour muscles and joints work together. All of these changes can lead to pain. Pain may be felt in the upper or lower back. Pain is also common in the pelvis. Some women have sciatica. This is paincaused by pressure on the sciatic nerve running down the back of the leg. Ask your healthcare provider for specific tips and exercises to help control your back pain. Tips to help you rest Good rest and sleep will help you feel better. Here are some ideas: Ask your partner to massage your shoulders, neck, or back. Limit the errands you do each day. Lie down in the afternoon or after work for a few minutes. Take a warm bath before you go to sleep. Drink warm milk or teas without caffeine. Avoid coffee, black tea, and cola. Stopping heartburn Avoid spicy, greasy, fried,or acidic foods. Eat small amounts more often. Eat slowly. Wait 2 hours after eating before lying down. Sleep with your upper body raised 6 inches. Managing mood swings Ways to manage mood swings include: Know that mood changes are normal. Exercise often, but get plenty of rest. Address any concerns and limit stress. Talking to your partner, other women, or your healthcare provider may help. Dealing with urinary frequency Tips to deal with having to urinate often include: Drink plenty of water all day. If you drink a lot in the evening, though, you may have to get up more in the night. Limit coffee, black tea, and cola. IntooBR last reviewed this educational content on 08/18/201719993353-2480 The Mobile [employer]. All rights reserved. This information is not intended as a substitute for professional medical care. Always follow your healthcare professional's instructions. Patient Education Comfort Tips During can bring discomfort of different kinds. Below are tips for ways to feel better.Talk with yourhealthcare provider before using pain-relieving medicine at any time during your . First trimester tips Easing nausea Get up slowly. Eat a few unsalted crackers before you get out of bed. Avoid smells that bother you. Eat small,bland, low-fat, high-protein meals at frequent intervals. Sip on water, weaktea, or clear soft drinks, like kevin sara.Eat ice chips. Try taking vitamin B6. Coping with fatigue Take catnaps when you can. Get regular exercise. Accept help from others. Practice good sleep habits, like going to bed and getting up at the same time each day. Use your bed only for sleep and sex. Calming mood swings Talk about your feelings with others, including other mothers. Limit sugar, chocolate, and caffeine. Eat a healthy diet. Dont skip meals. Get regular exercise. Soothing headaches Get fresh air and exercise. Relax and get enough rest. Check with your healthcare provider before taking any pain medicines. Second trimester tips To limit ankle swelling, sit with your feet raised or wear support hose. If you have pain in your groin and stomach(round ligament pain), don't make sudden twisting movements with your body. For leg cramps, flexing your foot often brings immediate relief. Also try massaging your calf in long, downward strokes, or stretching your legs before going to bed. Get enough exercise and wear shoes with flexible soles. Eat foods rich in calcium. Third trimester tips Reducing heartburn Eat small, light meals throughout the day rather than 3 large ones. Sleep with your upper body raised 6 inches. Dont lie down until 2 hours after you eat. Don't eat greasy, fried, or spicy foods. Don't have citrus fruits or juices. Treating constipation Eat foods high in fiber, such as whole-grain foods, and fresh fruit and vegetables). Drink plenty of water. Get regular exercise. Ask about your healthcare provider about medicines that have docusate or psyllium. Taking care of your breasts Don't use harsh soaps or alcohol, which can make your skin too dry. Wear nursing bras. They provide more support than regular bras and can be used after ifyou breastfeed. Getting a good nights sleep Take a warm shower before bed. Sleep on a firm mattress. Lie on your side with 1 leg crossed over the other. Use pillows to support your arms, legs, and belly. IntooBR last reviewed this educational content on 02/16/202019996216-2910 The Mobile [employer]. All rights reserved. This information is not intended as a substitute for professional medical care. Always follow your healthcare professional's instructions. Patient Education : Your Third Trimester Changes As the baby grows, your body changes too. You may also see signs that your body is getting ready forlabor. Be patient. Within a few more weeks, your baby will be born. How you are changing Your body is preparing for the of your baby. Some of the most common changes are listed below.If you have any questions or concerns, ask your healthcare provider: Youll gain more weight from fluids, extra blood, and fat deposits. Your breasts will grow as your body gets ready to feed the baby. They may be more tender. You mayalso notice a slight yellow or white discharge from the nipples. Discharge from your vagina may increase. This is normal. You might see some skin color changes on your forehead, cheeks, or nose. Most of these will go away after you deliver. How your baby is growing Month 7 Your babycan open and close his or her eyes andweighs around 4 pounds (1.8 kg).If born prematurely (too early), your baby would likely survive with special care. Month 8 Your baby is building up body fat andweighs around 6 pounds (2.7 kg). Month 9 Your baby weighs nearly 7 pounds (3.2 kg)and is about 19 to 21 inches long. In other words, any day now... IntooBR last reviewed this educational content on 08/18/201719990353-8109 The Mobile [employer]. All rights reserved. This information is not intended as a substitute for professional medical care. Always follow your healthcare professional's instructions. GER LEGAL documented in this encounter Progress Notes Xuan Jo MD - 06/05/2020 8:45 AM CST ROUTINE VISIT 06/05/2020 9:07 AM SUBJECTIVE Barbara Moran is a 19 year old at 33w3d who presents for routine visit. She has complaints of headache, round ligament pain, dizziness, nausea and vomiting; denies contractions, loss of fluid, vaginal bleeding, and signs or symptoms of pre-eclampsia. Good movement. OBJECTIVE LMP (LMP Unknown) FH: 27 cm FHT: 133 ROS: See HPI Physical Exam: Gen: A&Ox3, NAD CV: RRR Pulm: CTAB Abd: Soft, gravid, NTTP, no rebound or guarding Ext: No calf tenderness ASSESSMENT: Barbara Moran is a 19 year old at 33w3d who presents for routine visit. PLAN See OB Summary RTC in 2 weeks for PN visit Scrcamillae's Attestation IJosemanuel am scribing for, and in the presence of, Xuan Jo MD who performed the services described here-in. Josemanuel Wray, June 05, 2020, 9:07 AM Physician's Attestation I have seen and examined the patient and agreed with the note above Xuan Jo MD 06/05/2020 4:38 PM documented in this encounter Miscellaneous Notes OB Summary Note - Josemanuel Wray - 06/05/2020 8:45 AM CST Age: [age] year old GA: 33w3d Doing well, USG on 05/09/2020 showed appropriate interval growth and no obvious abnormalities Patient complains of cramps consistent with round ligament pain. Advise maternity belt, rest prn, tylenol prn GERD - Patient reports nausea and vomiting throughout the and it occurs every other day Patient reports eating 3-4 meals daily and drinking a lot of water patient also reports heartburn has been worse in the last week -Prescribed pepcid SALAS - Patient reports headache every other day she reports she just got a new job and is stressed. Patient denies visual disturbances - BP wnl. U dip negative for protein - Advised Tylenol prn, rest, relaxation techniques, massages Dizziness - Patient reports one episode of syncope after feeling hot and dizzy she sat down and passed out fora couple of seconds a month ago at the store and went to the ER in [place]. Patient also reports going to [facility] earlier in for an episode of dizziness - Intermittent dizziness especially with prolonged standing up. Reports one episode of syncope. Advise changing positions frequently, use compression stockings if standing for a long period, use cool packs as needed. Advise taking time between changing positions, eating regular and frequent meals, and drinking plenty of water. Denies chest pain, SOB, palpitations. Fall precautions reviewed. Daily kick counts RTC in 2 weeks for PN visit Scribe's Attestation Josemanuel Palencia am scribing for, and in the presence of, Xuan Jo MD who performed the services described here-in. Josemanuel Wray, June 05, 2020, 9:06 AM Physician's Attestation I have seen and examined the patient and agreed with the note above Xuan Jo MD 06/05/2020 4:37 PM documented in this encounter Plan of Treatment Date Type Specialty Care Team Description 06/19/2020 Routine Obstetrics & Brittani Hearn, Visit Gynecology JOSE EDUARDO [address] [id number] Health Maintenance Due Date Last Done Comments MENINGOCOCCAL B VACCINES (1 2010 of 2 - Risk Bexsero 2-dose series) HPV VACCINES (1 - 2-dose 2011 series) Depression Screening 2012 WELL CARE VISIT: 12-21 YEARS 2012 (yearly) CHLAMYDIA SCREENING 02/19/2021 02/20/2020, 05/18/2018, 11/17/2017, Additional history exists DTaP,Tdap,and Td Vaccines (8 05/20/2030 05/20/2020, 018, - Td) 06/17/2004, Additional history exists PNEUMOCOCCAL 0-64 YEARS Aged [...] Diagnosis Comme nts POCT URINALYSIS W/O Routine 06/05/2020 Supervision of high R esults for this SPECIFIC GRAVITY risk in third procedure are in the trimester results section . documented in this encounter Results POCT URINALYSIS W/O SPECIFIC GRAVITY (06/05/2020) Pathologist Sig nature POCT PH U 7.5 5 - 8 mg/dl POCT U LEUK [...] of high risk in th ird trimester - Primary Unspecified high-risk 33 weeks gestation of state, incidental Gastroesophageal reflux disease, unspeci fied whether esophagitis present documented in this encounter Insurance Payer Benefit Plan / Subscriber ID Effective Dates Phone Addre ss Type Group [place] [employer] [place] [employer] [id number] 2019-Present Medicaid HEALTH PLAN - HEALTH MANAGED MEDICAID documented as of this encounter
--- OUTSIDE RECORDS SUMMARY | 2020-06-17 08:56 | XMS REPORT | Summary of Care ---
:2000 Author Organization [facility] Address [address] [place] [id number] Care Team Providers Name Role Phone Ivanna Mcmullenh Insurance Hmo Xuan Jo MD Primary Care Provider Reason for Visit Reason Comments ROUTINE VISIT Encounter Details Date Type Department Care Team Description 05/20/2020 Routine [facility] Women's Brittani Hearn, Supervision of high risk in third trimester (Primary Dx); Visit Healthcare- PA-C 31 weeks gestation of ; [address] Need for Tdap vaccination; [address] [place] [address] Poor social situation; Drive, [address] Acute pharyngitis, [place] [address] [id number] Allergies No Known Allergiesdocumented as of this [...] with No / Unsure 05/20/2020 3:59 PM TRANSPORTATION PROJECT MANAGER someone who was confirmed or suspected to have Coronavirus / COVID-19? documented as of this encounter Last Filed Vital Signs Vital Sign Reading Time Taken Comments Blood Pressure 104/66 05/20/2020 4:26 PM TRANSPORTATION PROJECT MANAGER Pulse 85 05/20/2020 4:26 PM TRANSPORTATION PROJECT MANAGER Temperature 36.9 C (98.4 F) 05/20/2020 4:26 PM TRANSPORTATION PROJECT MANAGER Respiratory Rate 18 05/20/2020 4:26 PM TRANSPORTATION PROJECT MANAGER Oxygen Saturation - - Inhaled Oxygen Concentration - - Weight 60.8 kg (134 lb) 05/20/2020 4:26 PM TRANSPORTATION PROJECT MANAGER Height 160 cm (5' 3") 05/20/2020 4:26 PM TRANSPORTATION PROJECT MANAGER Body Mass Index 23.74 05/20/2020 4:26 PM TRANSPORTATION PROJECT MANAGER documented in this encounter Progress Notes Cathleen Crowley MA - 05/20/2020 4:00 PM CST19 year old female has been identified by and name. Verbal consent has been obtained by patientto have an injection, as ordered by the provider. NDC (National Drug Code) 90877-487-69 Patient or state-supplied medications?: no Has ABN (Advanced Beneficiary Notice) been completed? No Previous/Current Encounter Diagnosis: Z23 The site was cleaned with an alcohol swab and given intramuscularly left deltoid (IM). A band aid dressing was then applied to the injection site. The patient tolerated the procedure well , no rash, swelling or reaction noted. Patient provided with preferred teaching of verbal information on Anaphylaxis. Shows readiness to learn. Verbal/Written instruction teaching provided. Individual is able to read and verbalizes understanding of teaching provided. Signs and Symptoms of Anaphylaxis (severe allergic reaction) are: Tingling, itching or metallic taste in mouth; hives; difficulty breathing; swelling and/or itching of mouth and/or throat; diarrhea, vomiting, cramps and stomach pain; paleness; loss of consciousness. IF YOU HAVE ANY OF THE SYMPTOMS ABOVE, ACT FAST!!! CALL 911 IMMEDIATELY IF YOU HAVE A PRESCRIBED EPI-PEN PLEASE USE IT NOW. Cathleen Crowley MA 05/20/2020 4:36 PM Brittani Connor PA-C - 05/20/2020 4:00 PM CST Chief complaint: Chief Complaint Patient presents with ROUTINE VISIT HPI Barbara Moran is a 19 year old female @ 31w1d coming in for PN visit. Denies contractions,vaginal bleeding, LOF, dysuria, or PIH symptoms. + [...] labor, began to bleed was sent to [facility] Received blood transfusion after delivery x2. Past [...] file Gets together: Not on file Attends adventism service: Not on file Active member of [...] Cats in home ; not litter box Sabianism Preference: Islam Social History Substance and Sexual Activity Sexual Activity Yes control/protection: None Comment: last intercourse 02/19/2020 Labs none Radiology None Allergies Barbara has No Known Allergies. Medications Barbara has a current medication list which includes the following prescription(s): metoclopramide hcl, ondansetron, vit calc,iron,folic, and acetaminophen. Review of Systems Constitutional: Negative for appetite change, fatigue and fever. HENT: Positive for sore throat. Negative for rhinorrhea. Eyes: Negative for pain and itching. Respiratory: [...] not nervous/anxious. Endocrine: Negative for hair loss. LMP (LMP Unknown) Pregravid BMI: 21.09 Physical Exam Vitals reviewed. Constitutional: She is oriented to person, place, and time. She appears well- developed and well-nourished. HENT: Right Ear: Hearing, tympanic membrane, external ear and ear canal normal. Left Ear: Hearing, tympanic membrane, external ear and ear canal normal. Nose: Nose normal. No mucosal edema or rhinorrhea. Mouth/Throat: Posterior oropharyngeal edema and posterior oropharyngeal erythema present. No oropharyngeal exudate or tonsillar abscesses. Neck: No mass. No thyromegaly palpated. Cardiovascular: Regular rate and rhythm. Pulmonary/Chest: Normal inspiratory effort. Abdominal: Abdomen is soft. No tenderness present. No hernia palpated or inspected. Neuro/Psychiatric: She has a normal mood and affect. She is oriented to person, place, and time. Skin: Skin normal. Assessment/Plan SEE OB SUMMARY Return to clinic in 2 weeks. Discussed treatment options. Reviewed patient instructions and provided printed copy. Activity restrictions: As tolerated This visit did not involve counseling and coordination that comprised more than 50% of the visit time. Brittani Hearn PA-C 05/20/2020 4:09 PM SPORTATION PROJECT MANAGER documented in this encounter Miscellaneous Notes OB Summary Note - Brittani Hearn PA-C - 05/20/2020 4:00 PM CSTAge: 19 year old GA: 31w1d Doing well, c/o sore throat. Patient denies any fever, chills, body aches. Patient advise on safe medications to take during for sore throat. Patient denies any sob, cough, or sick contacts/travel. Patient to take lozenges, incr fluid intake. If sx worsen patient to rtc. S<<D FU USG on 05/09/2020 showed No obvious abnormalities 28 week labs and serologies wnl except for VZV-NI. Daily kick counts. FOLLOW-UP in 2 wks for PN visit. Tdap given today. documented in this encounter Plan of Treatment Date Type Specialty Care Team Description 06/05/2020 Routine Obstetrics & Jo, Xuan Morris MD Visit Gynecology [address] [place] [address] DR. Jean[place]Baptiste [place], [place] [address] [phone] Health Maintenance Due Date Last Done Comments [...] Name Priority Date/Time Associated Diagnosis Comme nts TDAP VACCINE, >11 Routine 05/20/2020 4:26 Supervision of high YRS, IM PM TRANSPORTATION PROJECT MANAGER risk in third trimester Need for Tdap vaccination POCT URINALYSIS W/O Routine 05/20/2020 Supervision of high R esults for this SPECIFIC GRAVITY risk in proced ure are in third trimester the results section. documented in this encounter Results POCT URINALYSIS W/O SPECIFIC GRAVITY (05/20/2020) Pathologist Sig nature POCT PH U n/a 5 - 8 mg/dl POCT U LEUK EST n/a Negative - Negative POCT U NIT n/a Negative - Negative POCT U PROT neg Negative - Negative POCT U GLU neg Negative - Negative POCT U KETONE n/a Negative - Negative POCT U BLD n/a Negative - Negative Specimen Urine - URINE, CLEAN CATCH documented in this encounter Visit Diagnoses Diagnosis Supervision of high risk in th ird trimester - Primary Unspecified high-risk 31 weeks gestation of state, incidental Need for Tdap vaccination Need for prophylactic vaccination with c ombined groqbxohdl-[id number] (DTP) vaccine Poor social situation Unspecified psychosocial circumstance Acute pharyngitis, unspecified etiology documented in this encounter Insurance Payer Benefit Plan / Subscriber ID Effective Dates Phone Addre ss Type Group [place] [employer] [place] [employer] [id number] 2019-Present Medicaid HEALTH PLAN - HEALTH MANAGED MEDICAID documented as of this encounter
[2020-06-17] MEDS ORDERED: Ringers Lactate 1,000 ML IV SCH (09:00)
[2020-06-17] MEDS ORDERED: LIDOCAINE 2% INJ, 20 mL 0 ML ONE (09:38)
[2020-06-17] MEDS ORDERED: METHYLERGONOVINE 0.2MG/ML AMP IM ONE ×3 (09:39→13:54)
[2020-06-17] MEDS ORDERED: CARBOPROST TROME 250 MCG/ML IM ONE (09:39)
[2020-06-17 10:05] LABS: Absolute Lymphocytes (CBC) 1.6 K/uL (0.7-4.9); Basophils % 0.4 % (0-1.3); Hematocrit 30.8 % (36.0-45.0); Lymphocytes % 16.6 % (15.3-44.8); MPV 7.8 fL (7.6-11.3); RBC Red Blood Cell Count 3.32 M/uL (3.86-4.86)
--- NOTE | 2020-06-17 10:29 | PREOPHP ---
Date of Admission: 06/17/2020 History: 20-year-old 3, para 2, at 35 weeks plus 2 to 3 days, scheduled to see [facility] after tomorrow. Has a history of premature deliveries. She is carrying a male . Came into our institution in active labor 3.5 cm bulging membranes on admission. She is rapidly dilating. Sh e is now 8 cm rupture of membranes. Basically clear fluid -1 to 0 station. FHT is normal, reactive at this point. The patient states she has had no problems during the . Negative COVID test 1 month ago. She has had no problems with diabetes, blood pressure issues or anything else, only ea rly deliveries. Knows that male may have problems more so than females, but we cannot determi ne this until after delivery. Penicillin prophylaxis has been ordered and is hanging now. Family History: Noncontributory. Past Medical History: The patient has no surgeries and says that she had heart problems like a heart attack, was evaluated in emergency room and they told her it was not heart related, probably reflux. She has been taking vitamins and iron. Physical Examination: HEENT: Clear. Pupils equal, round, and reactive to light and accommodation. Conjunctivae well perf used. No oral, lingual, or buccal lesions. Chest and lungs: Clear. Heart: Without murmurs, thrills, heaves, or rubs. Breasts: Not examined. Abdomen: Term size, baby is vertex. Exam as stated, 8 cm. Extremities: Clear without edema, cyanosis, or clubbing. Anticipate delivery relatively soon. Labor talk given. We are awaiting medical records. ELIZA/DUC Voice ID: [id number]
[2020-06-17] MEDS ORDERED: DOCUSATE NA/SENNA CONC 1 TAB PO PRN (10:58)
[2020-06-17] MEDS ORDERED: Oxycodone HCl/Acetaminophen 1 TAB TAB PO PRN ×2 (10:58)
[2020-06-17] MEDS ORDERED: DIPHENHYDRAMINE 25 MG TAB/CAP PO PRN (10:58)
[2020-06-17] MEDS ORDERED: BISACODYL 10 MG RECTAL SUPP RC PRN (10:58)
[2020-06-17] MEDS ORDERED: ACETAMINOPHEN 500 MG TAB PO PRN (10:58)
[2020-06-17] MEDS ORDERED: OXYTOCIN/LR 20 UNIT/1,000 ML BAG IV SCH (11:00)
--- NOTE | 2020-06-17 12:05 | OP ---
Surgeon: MD Barbara Moon Raine Moran, 20-year-old 3, para 2, history of 2 previous premature deliveries. First delivery, she said weighed a little over 2 pounds, the second one little over 3 pounds, 35 wee ks and 1 day, came in to our institution in active labor 3.5 cm on admission marcelino regularly. Penicillin prophylaxis 5 million units x1. Rupture of membranes at approximately 7-8 cm clear fluid over the next hour and a half. The patient went to complete second stage of about 20 minutes. Spont aneous vaginal delivery of 4 pounds 11 ounces male infant, Apgars 9 and 9, but baby is now showing na alessio flaring and some retractions, scheduling representative has been notified and patient knows baby may have to b e transferred. No episiotomy. No laceration. Boss delivery of the placenta, which inspected, we will send it for pathological exam. Urinary drug screen ordered. The patient tolerated the procedur es well, although fairly uncooperative. Final Diagnoses: Intrauterine gestation 35 weeks 1 day, premature labor and delivery, penicillin pro phylaxis, history of premature labor, VAMB patient drop in. ELIZA/WILLIAML Voice ID: [id number] Report ID: [id number]
[2020-06-17 12:58] LABS: Urine Appearance CLOUDY; Urine Bilirubin NEGATIVE (NEG); Urine Blood 3+ (NEG); Urine Color RED; Urine Glucose NEGATIVE (NEG); Urine Protein 1+ (NEG); Urine Specific Gravity 1.015 (1.005-1.030); Urine Urobilinogen 0.2 mg/dL (0.2-1.0); Urine pH 7.5 (5.0-7.0)
[2020-06-17 13:10] LABS: Barbiturates NEGATIVE (NEGATIVE); Benzodiazepines NEGATIVE (NEGATIVE); Cocaine NEGATIVE (NEGATIVE); METHAMPHETAM NEGATIVE (NEGATIVE); Methadone NEGATIVE (NEGATIVE); Opiates NEGATIVE (NEGATIVE); Phencyclidine NEGATIVE (NEGATIVE); THC Cannibis NEGATIVE (NEGATIVE)
[2020-06-17 13:12] LABS: Urine Microscopic Reflex ORDER UMIC
[2020-06-17 13:32] LABS: Urine Bacteria <20 /HPF (<20); Urine RBC TNTC /HPF (NONE SEEN)
[2020-06-17] MEDS: IBUPROFEN 600 MG TAB PO PRN (16:21)
[2020-06-17 16:36] VITALS: BMI 28.8
[2020-06-17] MEDS ORDERED: Ringers Lactate 1,000 ML IV ONE ×2 (22:41→22:42)
[2020-06-18] MEDS: IBUPROFEN 600 MG TAB PO PRN (00:09)
[2020-06-18 22:23] LABS: RPR (Rapid Plasma Reagin) NON-REACT (NON-REACT)
[2020-06-19 08:34] VITALS: BP 121/78; TEMP 97.6
[2020-06-19 21:07] LABS: HBsAG Nonreactive (Nonreactive)
== END 2020-06-19 08:35 | disposition home or self-care (01) | DRG 807 ==
LOC: L&D 08:48 → 2ND-WC 09:09
PROVIDERS: ADMIT Specialist; ATTEND Specialist
PROC: 10907ZC Drainage of Amniotic Fluid, Therapeutic from Products of Conception, Via Natural or Artificial Opening (ICD-10-PCS; principal; 2020-06-17)
PROC: 10E0XZZ Delivery of Products of Conception, External Approach (ICD-10-PCS; 2020-06-17)
DX: O60.14X0 Preterm labor third trimester with preterm delivery third trimester, not applicable or unspecified (principal); Z37.0 Single live birth; O99.824 Streptococcus B carrier state complicating childbirth; Z3A.35 35 weeks gestation of pregnancy; Z20.828 Contact with and (suspected) exposure to other viral communicable diseases
CPT/HCPCS: 36415; 80307; 81003; 81015; 85025; 86592; 86901; 87086; 87088; 87340; G0433; J2210; J2540; J7120; U0003

== ENCOUNTER 2021-02-01 17:28 | Emergency (ER) | payer OTHER ==
--- OUTSIDE RECORDS SUMMARY | 2021-02-01 17:31 | XMS REPORT | Continuity of Care Document ---
:2000 Author Organization [facility] t Address [address] [place] [address] Care Team Providers Name Role Phone Arturo Jo MD Attending Clinician Payers Payer Name Policy Type Policy Number Effective Date Expiration Date S ource Problems This patient has no known problems. Allergies, Adverse Reactions, Alerts Allergy Allergy Status Severity Reaction(s) Onset Inactive Treating Comm ents Source Name Type Date Date Clinician No Known DA Active U 2017-07 [facility] No Known DA Active U 2016-07 [facility] 07[facility]23 [facility] Medications This patient has no known medications. Procedures This patient has no known procedures. Encounters Start End Encounter Admission Attending Care Care Encounter Source Date/Time Date/Time Type Type Clinicians Facility Department ID 2020-06-25 2020-06-25 Routine Xuan Jo [facility] [id number] 10:28:43 11:59:31 Cam Sanjeev [id number] Visit Chavo [id number] [place] [id number] [address] Building Results This patient has no known results.
[2021-02-01 18:04] LABS: Urine Blood 1+ (Negative); Urine Glucose Negative (Negative); Urine Protein 1+ (Negative); Urine Specific Gravity >=1.030 (1.005-1.030)
--- NOTE | 2021-02-01 18:24 | ER ---
Nurse's Notes [facility] Name: Barbara Moran Age: 20 yrs Sex: Female : 2000 Arrival Date: 02/01/2021 Time: 17:31 Bed 24 Private MD: Diagnosis: Chest pain, unspecified Presentation: 02/01 17:31 Chief complaint: Patient states: Mid chest pressure for 5 days, had sharp pain today so ll1 she wanted to be checked. + dizzy. No fever. Coronavirus screen: Client denies travel out of the [place] in the last 14 days. At this time, the client does not indicate any symptoms associated with coronavirus-19. Ebola Screen: Patient denies travel to an Ebola-affected area in the 21 days before illness onset. Initial Sepsis Screen: Does the patient meet any 2 criteria? No. Patient's initial sepsis screen is negative. Does the patient have a suspected source of infection? No. Patient's initial sepsis screen is negative. Risk Assessment: Do you want to hurt yourself or someone else? Patient reports no desire to harm self or others. Onset of symptoms was January 28, 2021. 17:31 Method Of Arrival: Ambulatory ll1 17:31 Acuity: LUCIA 3 ll1 Historical: - Allergies: 17:32 No Known Allergies; ll1 - PMHx: 17:32 None; ll1 - PSHx: 17:32 None; ll1 - Immunization history:: Client reports having NOT received the Covid vaccine. Flu vaccine is not up to date. - Social history:: Smoking status: Patient denies any tobacco usage or history of. - Family history:: not pertinent. - Hospitalizations: : No recent hospitalization is reported. Screenin:40 Abuse screen: Denies threats or abuse. Denies injuries from another. Nutritional zb screening: No deficits noted. Tuberculosis screening: No symptoms or risk factors identified. Fall Risk None identified. Assessment: 18:24 Reassessment: ECP at bedside. zb 18:39 General: Appears in no apparent distress. comfortable, Behavior is calm. Pain: zb Complains of pain in chest Pain radiates to neck Pain began 2-3 days ago. Neuro: Level of Consciousness is awake, alert, obeys commands. Cardiovascular: Heart tones S1 S2 present Patient's skin is warm and dry. Respiratory: Airway is patent Respiratory effort is even, unlabored. GI: Abdomen is flat. Derm: Skin is intact, is healthy with good turgor, Skin is dry, Skin is normal. Musculoskeletal: Range of motion: intact in all extremities. 18:40 Reassessment: Patient appears in no apparent distress at this time. Patient and/or zb family updated on plan of care and expected duration. Pain level reassessed. Patient is alert, oriented x 3, equal unlabored respirations, skin warm/dry/pink. patient state she is currently not having chest pain at this moment. gait even and stable ambulated out. Vital Signs: 17:31 BP 113 / 79; Pulse 65; Resp 17; Temp 97.3; Pulse Ox 100% ; Height 5 ft. 3 in. (160.02 ll1 cm); Pain 6/10; 18:41 BP 112 / 80; Pulse 62; Resp 16; Pulse Ox 100% ; zb ED Course: 17:31 Patient arrived in ED. ll1 17:32 Triage completed. ll1 17:33 Arm band placed on. ll1 17:40 Mirza Martinez MD is Attending Physician. rn 18:09 Tanisha Ruiz RN is Primary Nurse. zb 18:16 XRAY Chest (1 view) In Process Unspecified. EDMS 18:40 No provider procedures requiring assistance completed. Patient did not have IV access zb during this emergency room visit. Patient maintains SpO2 saturation greater than 95% on room air. 18:41 Patient has correct armband on for positive identification. Pulse ox on. NIBP on. zb Administered Medications: No medications were administered Outcome: 18:24 Discharge ordered by . rn 18:41 Discharged to home ambulatory. zb 18:41 Condition: stable 18:41 Discharge instructions given to patient, Instructed on discharge instructions, follow up and referral plans. Demonstrated understanding of instructions, follow-up care. 18:41 Patient left the ED. zb Signatures: Dispatcher [employer] EDMS Mirza Martinez MD MD rn Lewis, Lynsay, RN RN [facility] Tanisha Ruiz RN RN zb
--- NOTE | 2021-02-01 18:25 | EDPHYS ---
Physician Documentation [facility] Name: Barbara Moran Age: 20 yrs Sex: Female : 2000 Arrival Date: 02/01/2021 Time: 17:31 Bed 24 Private MD: ED Physician Mirza Martinez HPI: 02/01 17:50 This 20 yrs old Female presents to ER via Ambulatory with complaints of Chest rn Pain. 17:50 The patient or guardian reports chest pain that is located primarily in the substernal rn area. The pain radiates to the left arm. Associated signs and symptoms: Pertinent negatives: abdominal pain, diaphoresis, dizziness, lightheadedness, nausea, near syncope, palpitations, shortness of breath, syncope, vomiting. The chest pain is described as dull, a heaviness. Duration: The patient or guardian reports multiple episodes, that are intermittent. Modifying factors: The symptoms are alleviated by nothing. the symptoms are aggravated by nothing. Severity of pain: At its worst the pain was mild in the emergency department the pain has improved. The patient has not experienced similar symptoms in the past. The patient has not recently seen a physician. Reports a few days of chest pain, dull, then today "shock", intermittent, radiates to left shoulder/arm, no famhx of personal hx of cardiac problems at her age. No abd pain. No vomiting/diarrhea/cough/sob. No trauma. Reports under a lot of stress lately and thinks may be anxiety. Also doesn't know if she is and too scared to take test at home so came here for that as well. No drug use. . Historical: - Allergies: 17:32 No Known Allergies; ll1 - PMHx: 17:32 None; ll1 - PSHx: 17:32 None; ll1 - Immunization history:: Client reports having NOT received the Covid vaccine. Flu vaccine is not up to date. - Social history:: Smoking status: Patient denies any tobacco usage or history of. - Family history:: not pertinent. - Hospitalizations: : No recent hospitalization is reported. ROS: 17:50 Constitutional: Negative for fever, chills, and weight loss, Eyes: Negative for injury, rn pain, redness, and discharge, ENT: Negative for injury, pain, and discharge, Neck: Negative for injury, pain, and swelling, Cardiovascular: Negative for palpitations, and edema, Respiratory: Negative for shortness of breath, cough, wheezing, and pleuritic chest pain, Abdomen/GI: Negative for abdominal pain, nausea, vomiting, diarrhea, and constipation, Back: Negative for injury and pain, : Negative for injury, bleeding, discharge, and swelling, MS/Extremity: Negative for injury and deformity, Skin: Negative for injury, rash, and discoloration, Neuro: Negative for headache, weakness, numbness, tingling, and seizure. Exam: 17:50 Constitutional: This is a well developed, well nourished patient who is awake, alert, rn and in no acute distress. Head/Face: Normocephalic, atraumatic. Eyes: Periorbital areas with no swelling, redness, or edema. Neck: Trachea midline, no thyromegaly or masses palpated, and no cervical lymphadenopathy. Supple, full range of motion without nuchal rigidity, or vertebral point tenderness. No Meningismus. Cardiovascular: Regular rate and rhythm. No pulse deficits. Respiratory: No increased work of breathing, no retractions or nasal flaring. Abdomen/GI: Soft, non-tender Skin: Warm, dry with normal turgor. Normal color with no rashes, no lesions, and no evidence of cellulitis. MS/ Extremity: Pulses equal, no cyanosis. Neurovascular intact. Full, normal range of motion. Equal circumference. Neuro: Awake and alert, GCS 15, oriented to person, place, time, and situation. Cranial nerves II-XII grossly intact. Motor strength 5/5 in all extremities. Sensory grossly intact. Cerebellar exam normal. Normal gait. 17:56 ECG was reviewed by the Attending Physician. rn Vital Signs: 17:31 BP 113 / 79; Pulse 65; Resp 17; Temp 97.3; Pulse Ox 100% ; Height 5 ft. 3 in. (160.02 ll1 cm); Pain 6/10; 18:41 BP 112 / 80; Pulse 62; Resp 16; Pulse Ox 100% ; zb MDM: 17:40 Patient medically screened. rn 18:23 Differential diagnosis: anxiety, chest wall pain, costochondritis, esophagitis, rn gastritis, gastroesophageal reflux disease (GERD), pleurisy, pneumothorax. Data reviewed: vital signs, nurses notes, lab test result(s), urinalysis, UPT: EKG, radiologic studies, plain films, and as a result, I will discharge patient. Test interpretation: by ED physician or midlevel provider: ECG, plain radiologic studies, CXR no acute infiltrate, no pneumothorax. Counseling: I had a detailed discussion with the patient and/or guardian regarding: the historical points, exam findings, and any diagnostic results supporting the discharge/admit diagnosis, lab results, radiology results, the need for outpatient follow up, to return to the emergency department if symptoms worsen or persist or if there are any questions or concerns that arise at home. Special discussion: Based on the patient's history, exam, and Dx evaluation, there is no indication for emergent intervention or inpatient Tx. It is understood by the patient/guardian that if the Sx's persist or worsen they need to return immediately for re-evaluation. I discussed with the patient/guardian in detail that at this point there is no indication for admission to the hospital. It is understood, however, that if the symptoms persist or worsen the patient needs to return immediately for re-evaluation. 02/01 18:04 Order name: Urine Dipstick-Ancillary; Complete Time: 18:10 EDKS 02/01 18:04 Order name: Urine --Ancillary (enter results); Complete Time: 18:20 eb 02/01 17:46 Order name: XRAY Chest (1 view) rn 02/01 17:46 Order name: EKG; Complete Time: 17:47 rn 02/01 17:46 Order name: EKG - Nurse/Tech; Complete Time: 17:56 rn 02/01 17:47 Order name: Urine Dipstick-Ancillary (obtain specimen); Complete Time: 18:09 rn 02/01 17:47 Order name: Urine Test (obtain specimen); Complete Time: 18:09 rn EC:56 Rate is 60 beats/min. Rhythm is regular. QRS [place] is Normal. DE interval is normal. QRS rn interval is normal. QT interval is normal. No Q waves. T waves are Normal. No ST changes noted. Clinical impression: Normal ECG. Interpreted by me. Reviewed by me. Administered Medications: No medications were administered Disposition Summary: 02/01/21 18:24 Discharge Ordered Location: Home rn Problem: new rn Symptoms: have improved rn Condition: Stable rn Diagnosis - Chest pain, unspecified rn Followup: rn - With: Private Physician - When: As needed - Reason: Recheck today's complaints, Re-evaluation by your physician Discharge Instructions: - Discharge Summary Sheet rn - Nonspecific Chest Pain, Adult rn Forms: - Medication Reconciliation Form rn - Thank You Letter rn - Antibiotic glove turner and former automatic - Prescription Opioid Use rn Signatures: Dispatcher [employer] Mirza Chen MD MD rn Lewis, Lynsay, RN RN ll1
[2021-02-01 18:51] VITALS: TEMP 97.3; O2SAT 100
[2021-02-01 18:53] VITALS: BP 112/80
--- NOTE | 2021-02-01 19:11 | RAD REPORT ---
EXAM DESCRIPTION: RAD - Chest Single View - 02/01/2021 6:16 pm CLINICAL HISTORY: CHEST PAIN Chest pain. COMPARISON: Chest Single View dated 01/05/2020; Chest Single View dated 09/08/2019 FINDINGS: Portable technique limits examination quality. The lungs are grossly clear. The heart is normal in size. No displaced fractures. IMPRESSION: No acute intrathoracic process suspected.
== END 2021-02-01 18:41 | disposition home or self-care (01) ==
LOC: ER 17:28
DX: R07.9 Chest pain, unspecified (principal)
CPT/HCPCS: 71045; 81003; 81025; 93005; 99284

== ENCOUNTER 2022-01-20 06:10 | Emergency (ER) | payer OTHER ==
[2022-01-20 06:46] LABS: Urine Blood Negative (Negative); Urine Glucose Negative (Negative); Urine Protein 2+ (Negative); Urine Specific Gravity >=1.030 (1.005-1.030); Urine pH 6.5 (5.0-7.0)
[2022-01-20] MEDS ORDERED: ONDANSETRON 4 MG/2 ML VIAL ONE (06:51)
[2022-01-20] MEDS ORDERED: NA CHLORIDE 0.9% 1,000 ML ONE (06:51)
[2022-01-20 06:54] LABS: Absolute Lymphocytes (CBC) 2.7 K/uL (0.7-4.9); Hematocrit 42.7 % (36.0-45.0); Lymphocytes % 24.5 % (15.3-44.8); MCV 92.8 fL (80-100); MPV 7.1 fL (7.6-11.3)
[2022-01-20 07:14] LABS: Urine RBC <5 /HPF (NONE SEEN)
[2022-01-20 07:15] LABS: Urine Bacteria 20-50 /HPF (<20); Urine Mucus 3+ /HPF (NONE SEEN)
[2022-01-20 07:20] LABS: Albumin 4.1 g/dL (3.4-5.0); Bilirubin Total 0.9 mg/dL (0.2-1.0); Potassium 3.3 mmol/L (3.5-5.1); Protein, Total 7.8 g/dL (6.4-8.2)
--- NOTE | 2022-01-20 08:40 | RAD REPORT ---
EXAM DESCRIPTION: US - Abdomen Exam Limited - 01/20/2022 7:27 am CLINICAL HISTORY: Abdominal pain. COMPARISON: None. FINDINGS: The gallbladder wall is not thickened. A gallstone is not seen. The biliary tree is normal caliber. IMPRESSION: Unremarkable gallbladder ultrasound.
--- NOTE | 2022-01-20 08:43 | RAD REPORT ---
EXAM DESCRIPTION: US - Transvaginal OB - 01/20/2022 7:36 am CLINICAL HISTORY: with abdominal pain COMPARISON: None. FINDINGS: The uterus measures 9 x 6 x 7 centimeters. A gestational sac is present within the endome trium. Within this is a pole with a crown-rump length 1.1 centimeters. A yolk sac is seen. Card iac activity 150 beats per minute. A small subchorionic bleed Ovaries are normal in size and echotexture.. The right and left adnexa unremarkable No significant free fluid IMPRESSION: Single live intrauterine with an estimated gestational age 7 weeks 1 day RASHID 0 09/07/2022 Small subchorionic bleed
--- NOTE | 2022-01-20 09:00 | ER ---
Nurse's Notes [facility] Name: Barbara Moran Age: 21 yrs Sex: Female : 2000 Arrival Date: 01/20/2022 Time: 06:14 Bed 14 Private MD: Diagnosis: Nausea with vomiting, unspecified;Vomiting of , unspecified Presentation: 01/20 06:14 Chief complaint: Patient states: nausea, vomiting and generalized weakness for 2 weeks lg3 and getting worse. Coronavirus screen: Client denies travel out of the [place] in the last 14 days. At this time, the client does not indicate any symptoms associated with coronavirus-19. Ebola Screen: No symptoms or risks identified at this time. Initial Sepsis Screen: Does the patient meet any 2 criteria? No. Patient's initial sepsis screen is negative. Does the patient have a suspected source of infection? No. Patient's initial sepsis screen is negative. Risk Assessment: Do you want to hurt yourself or someone else? Patient reports no desire to harm self or others. Onset of symptoms is unknown. 06:14 Method Of Arrival: EMS: [facility] lg3 06:14 Acuity: LUCIA 3 lg3 Triage Assessment: 06:16 General: Appears in no apparent distress. uncomfortable, Behavior is cooperative, lg3 anxious. Pain: Complains of pain in epigastric area Pain radiates to chest. EENT: No deficits noted. No signs and/or symptoms were reported regarding the EENT system. Neuro: No deficits noted. Level of Consciousness is awake, alert, obeys commands, Oriented to person, place, time, situation. Cardiovascular: No deficits noted. Capillary refill < 3 seconds Clubbing of nail beds is absent JVD is absent Patient's skin is warm and dry. Respiratory: No deficits noted. Airway is patent Trachea midline Respiratory effort is even, unlabored, Respiratory pattern is regular, symmetrical. GI: Abdomen is flat, non-distended, Bowel sounds present X 4 quads. Reports upper abdominal pain, epigastric pain, intolerance of fluids, intolerance of food, nausea, vomiting. : No deficits noted. No signs and/or symptoms were reported regarding the genitourinary system. Derm: No deficits noted. No signs and/or symptoms reported regarding the dermatologic system. Skin is intact, is healthy with good turgor, Skin is dry, Skin temperature is warm. Musculoskeletal: No deficits noted. No signs and/or symptoms reported regarding the musculoskeletal system. Circulation, motion, and sensation intact. Range of motion: intact in all extremities. 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 - Social history:: Smoking status: Patient denies any tobacco usage or history of. Patient/guardian denies using alcohol, street drugs. - Family history:: not pertinent. - Hospitalizations: : No recent hospitalization is reported. Screenin:20 Abuse screen: Denies threats or abuse. Denies injuries from another. Nutritional lg3 screening: No deficits noted. Tuberculosis screening: No symptoms or risk factors identified. Fall Risk None identified. Assessment: 06:18 General: see triage assessment . lg3 07:00 Reassessment: Patient resting in bed alert and awake in no obvious signs of distress. jg9 Patient reports she feels better after receiving the anti nausea medication. Patient updated on plan of care and pending test. Patient states feeling better. Patient states symptoms have improved. 07:56 Reassessment: Patient discussing concerns with this nurse about services jg9 needed-employment, resources in the community to help with regaining custody of other children and keeping custody of the one she is with now, patient reports to recent job loss and is concerned that she is going to loose everything she has accomplished and she was just inquiring about what is available to her. Provider notified, and director of social services consult order placed. Vital Signs: 06:14 BP 119 / 69; Pulse 76; Resp 18 S; Temp 98.5(O); Pulse Ox 100% on R/A; Weight 58.97 kg lg3 (R); Height 5 ft. 3 in. (160.02 cm) (R); Pain 6/10; 07:00 BP 110 / 81; Pulse 70; Resp 12 S; Pulse Ox 100% on R/A; jg9 08:00 BP 99 / 63; Pulse 81; Resp 14 S; Pulse Ox 99% on R/A; jg9 08:45 BP 115 / 68; Pulse 75; Resp 14 S; Pulse Ox 100% on R/A; jg9 06:14 Body Mass Index 23.03 (58.97 kg, 160.02 cm) lg3 ED Course: 06:14 Patient arrived in ED. lg3 06:14 Meaghan Silvestre, RN is Primary Nurse. lg3 06:16 Triage completed. lg3 06:16 Arm band placed on right wrist. lg3 06:19 Mirza Martinez MD is Attending Physician. rn 06:20 Patient has correct armband on for positive identification. Placed in gown. Bed in low lg3 position. Call light in reach. Side rails up X 1. Client placed on continuous cardiac and pulse oximetry monitoring. NIBP monitoring applied. Door closed. Noise minimized. Warm blanket given. 06:48 Flu Sent. lg3 06:48 SARS-COV-2 RT PCR (Document "Date of Onset" if Symptomatic) Sent. lg3 06:49 CBC with Diff Sent. lg3 06:49 CMP Sent. lg3 06:49 Lipase Sent. lg3 06:49 Urine Microscopic Only Sent. lg3 06:49 Inserted saline lock: 22 gauge in left antecubital area, using aseptic technique. Blood lg3 collected. 06:52 HCG-Quantitative Sent. lg3 06:56 Rh Type Sent. lg3 07:05 Attending Physician role handed off by Mirza Martinez MD kdr 07:05 Goran Blackmon MD is Attending Physician. kdr 07:15 Patient taken to ultrasound. via wheelchair. jg9 07:29 US Abdomen Limited In Process Unspecified. EDMS 07:38 US Transvaginal Ob In Process Unspecified. EDMS 07:55 Patient moved back from ultrasound. jg9 09:11 No provider procedures requiring assistance completed. jg9 09:11 IV discontinued. jg9 Administered Medications: 06:48 Drug: Zofran (Ondansetron) 4 mg Route: IVP; Site: left antecubital; lg3 06:48 Follow up: Response: No adverse reaction lg3 06:48 Drug: NS 0.9% 1000 ml Route: IV; Rate: 1000 ml; Site: left antecubital; lg3 09:10 Drug: AZITHromycin 1 grams Route: PO; jg9 09:10 Follow up: Response: Medication administered at discharge. jg9 Medication: 09:11 VIS not applicable for this client. jg9 Outcome: 08:59 Discharge ordered by . kdr 09:11 Condition: stable jg9 09:11 Discharged to home ambulatory. jg9 09:11 Discharge instructions given to patient, Instructed on discharge instructions, follow up and referral plans. Demonstrated understanding of instructions, follow-up care, Prescriptions given X 2. 09:11 Patient left the ED. jg9 Signatures: Dispatcher [employer] EDMS Goran Blackmon MD MD kdr Nieto, Roman, MD MD rn Gibson, Lacie, RN RN lg3 Diana Kelsey RN RN jg9
--- NOTE | 2022-01-20 09:00 | EDPHYS ---
Physician Documentation [facility] Name: Barbara Moran Age: 21 yrs Sex: Female : 2000 Arrival Date: 01/20/2022 Time: 06:14 Bed 14 Private MD: ED Physician Goran Blackmon HPI: 01/20 06:39 This 21 yrs old Female presents to ER via EMS with complaints of rn nausea/vomiting/dehydration. 06:39 The patient presents to the emergency department with nausea, vomiting. Onset: The rn symptoms/episode began/occurred 2 week(s) ago. Possible causes: unknown, , sick contacts. The symptoms are aggravated by nothing. The symptoms are alleviated by nothing. Associated signs and symptoms: Pertinent positives: fever, nausea, vomiting, Pertinent negatives: GI bleeding. Severity of symptoms: At their worst the symptoms were moderate in the emergency department the symptoms are unchanged. The patient has experienced similar episodes in the past. The patient has not recently seen a physician. Pt reports 2 weeks of not feeling well, with subjective fever and chills, muscle cramps, nausea/vomiting. No diarrhea. + sick contacts at work around the same time and multiple call-ins. Pt also reports some concern for being . LMP 1 month ago. No vaginal bleeding or leakage of fluid/discharge. NO trauma. . 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 - Social history:: Smoking status: Patient denies any tobacco usage or history of. Patient/guardian denies using alcohol, street drugs. - Family history:: not pertinent. - Hospitalizations: : No recent hospitalization is reported. 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 Exam: 06:39 Constitutional: This is a well developed, well nourished patient who is awake, alert, rn and in no acute distress. Head/Face: Normocephalic, atraumatic. ENT: dry MM Cardiovascular: Regular rate and rhythm. No pulse deficits. Respiratory: No increased work of breathing, no retractions or nasal flaring. Abdomen/GI: Soft, non-tender Skin: Warm, dry MS/ Extremity: Pulses equal, no cyanosis. Neuro: Awake and alert, GCS 15 Vital Signs: 06:14 BP 119 / 69; Pulse 76; Resp 18 S; Temp 98.5(O); Pulse Ox 100% on R/A; Weight 58.97 kg lg3 (R); Height 5 ft. 3 in. (160.02 cm) (R); Pain 6/10; 07:00 BP 110 / 81; Pulse 70; Resp 12 S; Pulse Ox 100% on R/A; jg9 08:00 BP 99 / 63; Pulse 81; Resp 14 S; Pulse Ox 99% on R/A; jg9 08:45 BP 115 / 68; Pulse 75; Resp 14 S; Pulse Ox 100% on R/A; jg9 06:14 Body Mass Index 23.03 (58.97 kg, 160.02 cm) lg3 MDM: 06:19 Patient medically screened. rn 01/20 06:26 Order name: CBC with Diff; Complete Time: 08:00 rn 01/20 06:26 Order name: CMP; Complete Time: 08:00 rn 01/20 06:26 Order name: Lipase; Complete Time: 08:00 rn 01/20 06:26 Order name: Urine Microscopic Only; Complete Time: 08:00 rn 01/20 06:27 Order name: SARS-COV-2 RT PCR (Document "Date of Onset" if Symptomatic); Complete Time: rn 08:08 07 06:27 Order name: Flu; Complete Time: 08:52 rn 01/20 06:46 Order name: Urine Dipstick-Ancillary; Complete Time: 08:00 EDMS 01/20 06:47 Order name: HCG-Quantitative; Complete Time: 08:00 rn 01/20 06:47 Order name: Rh Type rn 01/20 06:47 Order name: US Transvaginal Ob; Complete Time: 08:52 rn 01/20 06:47 Order name: US Abdomen Limited; Complete Time: 08:52 rn 01/20 07:18 Order name: Urine Culture EDMT 01/20 06:26 Order name: IV Saline Lock; Complete Time: 06:49 rn 01/20 06:26 Order name: Labs collected and sent; Complete Time: 06:49 rn 01/20 06:26 Order name: Urine Dipstick-Ancillary (obtain specimen); Complete Time: 06:42 rn 01/20 06:26 Order name: Urine Test (obtain specimen); Complete Time: 06:42 rn Administered Medications: 06:48 Drug: Zofran (Ondansetron) 4 mg Route: IVP; Site: left antecubital; lg3 06:48 Follow up: Response: No adverse reaction lg3 06:48 Drug: NS 0.9% 1000 ml Route: IV; Rate: 1000 ml; Site: left antecubital; lg3 09:10 Drug: AZITHromycin 1 grams Route: PO; jg9 09:10 Follow up: Response: Medication administered at discharge. jg9 Disposition Summary: 01/20/22 08:59 Discharge Ordered Location: Home kdr Problem: new kdr Symptoms: have improved kdr Condition: Stable kdr Diagnosis - Nausea with vomiting, unspecified kdr - Vomiting of , unspecified kdr Followup: kdr - With: Private Physician - When: 2 - 3 days - Reason: If symptoms return, Further diagnostic work-up, Recheck today's complaints, Continuance of care, Re-evaluation by your physician Discharge Instructions: - Discharge Summary Sheet kdr - Hyperemesis Gravidarum kdr - Nausea and Vomiting, Adult kdr Forms: - Medication Reconciliation Form kdr - Thank You Letter kdr - Antibiotic Education kdr Prescriptions: - Zofran 4 mg Oral Tablet - take 1 tablet by ORAL route every 12 hours As needed; 6 tablet; Refills: 0, kdr Product Selection Permitted - Macrobid 100 mg Oral Capsule - take 1 capsule by ORAL route every 12 hours for 3 days; 6 capsule; Refills: 0, kdr Product Selection Permitted Signatures: Dispatcher [employer] EDMS Goran Blackmon MD MD kdr Nieto, Roman, MD MD rn Gibson, Lacie, RN RN lg3 Diana Kelsey, RN RN jg9 Diana Chin FNP FNP jh7 Corrections: (The following items were deleted from the chart) :08 08:02 Social Service Consult ordered. EDMS EDMS
[2022-01-20] MEDS ORDERED: AZITHROMYCIN 250 MG TAB ONE (09:14)
[2022-01-20 09:17] VITALS: TEMP 98.5
[2022-01-20 09:21] VITALS: BP 115/68; O2SAT 100
== END 2022-01-20 09:11 | disposition home or self-care (01) ==
LOC: ER 06:10
DX: O21.9 Vomiting of pregnancy, unspecified (principal); Z3A.01 Less than 8 weeks gestation of pregnancy; Z20.822 Contact with and (suspected) exposure to COVID-19
CPT/HCPCS: 87088; 85025; 87086; 36415; 84702; 83690; 80053; 87804 ×2; 76705; 76817; U0003; J7030; J2405; 81003; 81015

== ENCOUNTER 2022-01-26 16:17 | Emergency (ER) | payer OTHER ==
[2022-01-26 16:55] LABS: Urine Blood Negative (Negative); Urine Glucose Trace (Negative); Urine Protein 1+ (Negative)
[2022-01-26] MEDS ORDERED: NA CHLORIDE 0.9% 1,000 ML ONE ×2 (17:15→18:34)
[2022-01-26] MEDS ORDERED: PROMETHAZINE INJ 25 MG/ML AMP ONE (17:15)
[2022-01-26 18:03] LABS: Absolute Lymphocytes (CBC) 1.6 K/uL (0.7-4.9); Hematocrit 43.5 % (36.0-45.0); Lymphocytes % 13.7 % (15.3-44.8); MCV 94.5 fL (80-100); MPV 7.5 fL (7.6-11.3)
[2022-01-26 18:10] LABS: Potassium 3.3 mmol/L (3.5-5.1)
--- NOTE | 2022-01-26 19:02 | EDPHYS ---
Physician Documentation [facility] Name: Barbara Moran Age: 21 yrs Sex: Female : 2000 Arrival Date: 01/26/2022 Time: 16:18 Bed Treatment Private MD: ED Physician Mirza Martinez HPI: 01/26 18:36 This 21 yrs old Female presents to ER via Ambulatory with complaints of Medication kb Refill, Abdominal Pain, Nausea/Vomiting. 18:36 The patient presents to the emergency department with nausea and vomiting. The kb estimated gestational age is 7 weeks. course: care: at a clinic, Leakage of Fluid: none appreciated, Ultrasound: the patient has not had an ultrasound. Previous pregnancies: the patient has never been . Associated signs and symptoms: Pertinent positives: nausea, vomiting. The patient has not experienced similar symptoms in the past. The patient has been recently seen by a physician:. Pt reports she is 7 weeks , has had nausea and vomiting for 3 weeks. Was seen here and given zofran which helped, followed up with OB who gave a prescription for phenergan because she was uncomfortable giving zofran. States the phenergan hasn't helped and she has been unable to tolerate anything by mouth for 3 days. Came to get more zofran. 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 - Social history:: Smoking status: Patient reports the use of cigarette tobacco products, denies chronic smoking, but will smoke occasionally. ROS: 18:34 Constitutional: Negative for fever, chills, and weight loss. kb 18:34 Abdomen/GI: Positive for nausea and vomiting, Negative for abdominal pain, diarrhea. 18:34 All other systems are negative. Exam: 18:34 Head/Face: Normocephalic, atraumatic. ENT: Moist Mucous membranes Cardiovascular: kb Regular rate and rhythm with a normal S1 and S2. No gallops, murmurs, or rubs. No pulse deficits. Respiratory: Respirations even and unlabored. No increased work of breathing. Talking in full sentences Abdomen/GI: Soft, non-tender. No distention Skin: Warm, dry with normal turgor. Normal color. MS/ Extremity: Pulses equal, no cyanosis. Neurovascular intact. Full, normal range of motion. Neuro: Awake and alert, GCS 15, oriented to person, place, time, and situation. Moves all extremities. Normal gait. Psych: Awake, alert, with orientation to person, place and time. Behavior, mood, and affect are within normal limits. 18:34 Constitutional: The patient appears alert, awake, uncomfortable. Vital Signs: 16:25 BP 145 / 75; Pulse 92; Resp 17; Temp 98.3; Pulse Ox 99% ; Weight 63.5 kg; Height 5 ft. ap3 3 in. (160.02 cm); 17:32 BP 126 / 95; Pulse 108; Resp 18; Pulse Ox 96% on R/A; eh3 16:25 Body Mass Index 24.80 (63.50 kg, 160.02 cm) ap3 MDM: 16:31 Patient medically screened. kb 18:35 Data reviewed: vital signs, nurses notes. Data interpreted: Pulse oximetry: on room air kb is 96 %. Interpretation: normal. 19:01 Counseling: I had a detailed discussion with the patient and/or guardian regarding: the kb historical points, exam findings, and any diagnostic results supporting the discharge/admit diagnosis, lab results, the need for outpatient follow up, an OB/Gyne specialist, to return to the emergency department if symptoms worsen or persist or if there are any questions or concerns that arise at home. ED course: Pt feeling better, tolerating po and has an appetite again. Will discharge home to follow up with pcp. 01/26 16:40 Order name: CBC with Diff; Complete Time: 18:22 kb 01/26 16:40 Order name: Basic Metabolic Panel; Complete Time: 18:22 kb 01/26 16:55 Order name: Urine Dipstick-Ancillary; Complete Time: 16:59 EDMS 01/26 16:58 Order name: Urine --Ancillary (enter results); Complete Time: 17:52 kj1 01/26 16:40 Order name: IV Start; Complete Time: 17:54 kb 01/26 16:40 Order name: Urine Dipstick-Ancillary (obtain specimen); Complete Time: 17:03 kb 01/26 18:25 Order name: PO challenge; Complete Time: 18:27 kb Administered Medications: 17:54 Drug: NS 0.9% 1000 ml Route: IV; Rate: 1000 ml; Site: left antecubital; eh3 19:21 Follow up: Response: No adverse reaction eh3 17:54 Drug: Phenergan (promethazine) 6.25 mg Route: IVP; Site: left antecubital; eh3 19:21 Follow up: Response: No adverse reaction eh3 18:31 Drug: NS 0.9% 1000 ml Route: IV; Rate: 1000 ml; Site: left antecubital; ld1 19:21 Follow up: Response: No adverse reaction eh3 Disposition: 01/27 07:22 Co-signature as Attending Physician, Mirza Martinez MD. rn Disposition Summary: 01/26/22 19:02 Discharge Ordered Location: Home kb Condition: Stable kb Diagnosis - Vomiting of , unspecified kb Followup: kb - With: Emergency Department - When: As needed - Reason: Worsening of condition Followup: kb - With: Private Physician - When: 2 - 3 days - Reason: Recheck today's complaints, Continuance of care, Re-evaluation by your physician Discharge Instructions: - Discharge Summary Sheet kb - Hyperemesis Gravidarum kb - Morning Sickness, [id number] kb Forms: - Medication Reconciliation Form kb - Thank You Letter kb - Antibiotic Education kb - Prescription Opioid Use kb Prescriptions: - Diclegis 10-10 mg Oral tablet,delayed release (DR/EC) - take 1 tablet by ORAL route once daily As needed; 10 tablet; Refills: 0, kb Product Selection Permitted - promethazine 25 mg Rectal suppository - insert 1 suppository by RECTAL route every 6 hours As needed; 10 suppository; kb Refills: 0, Product Selection Permitted Signatures: Dispatcher [employer] Sridevi Cleveland FNP-C FNP-Mirza Pruitt MD MD rn Prokisch, Amanda, RN RN ap3 Janie Gonzalez RN RN ld1 Allison Washington eh3
--- NOTE | 2022-01-26 19:02 | ER ---
Nurse's Notes [facility] Name: Barbara Moran Age: 21 yrs Sex: Female : 2000 Arrival Date: 01/26/2022 Time: 16:18 Bed Treatment Private MD: Diagnosis: Vomiting of , unspecified Presentation: 01/26 16:25 Chief complaint: Patient states: she is 7 weeks , and is requesting zofran. ap3 Patient states she can't keep any fluids down and has been very nauseous through out her . She reports that she went to the center, and they gave her promethazine, and it did not help. Coronavirus screen: At this time, the client does not indicate any symptoms associated with coronavirus-19. Ebola Screen: No symptoms or risks identified at this time. Initial Sepsis Screen: Does the patient meet any 2 criteria? No. Patient's initial sepsis screen is negative. Does the patient have a suspected source of infection? No. Patient's initial sepsis screen is negative. Risk Assessment: Do you want to hurt yourself or someone else? Patient reports no desire to harm self or others. Onset of symptoms was January 03, 2022. 16:25 Method Of Arrival: Ambulatory ap3 16:25 Acuity: LUCIA 3 ap3 Triage Assessment: 16:30 General: Appears uncomfortable, Behavior is calm, cooperative. Pain: Denies pain. ap3 Neuro: Level of Consciousness is awake, alert, obeys commands, Oriented to person, place, time. Cardiovascular: Patient's skin is warm and dry. Respiratory: Airway is patent Respiratory effort is even, unlabored, Respiratory pattern is regular, symmetrical. GI: Reports nausea, vomiting. : Reports . 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 - Social history:: Smoking status: Patient reports the use of cigarette tobacco products, denies chronic smoking, but will smoke occasionally. Screenin:29 Abuse screen: Denies threats or abuse. Nutritional screening: Has had N/V for 3 or more ap3 days. Tuberculosis screening: No symptoms or risk factors identified. 19:20 Fall Risk None identified. eh3 Assessment: 17:33 General: Appears distressed, uncomfortable, Behavior is cooperative, appropriate for eh3 age, restless. Pain: Denies pain. Neuro: Level of Consciousness is awake, alert, obeys commands, Oriented to person, place, time, situation. Cardiovascular: Capillary refill < 3 seconds Patient's skin is warm and dry. Respiratory: Airway is patent Respiratory effort is even, unlabored. GI: Reports nausea, vomiting, since 1 month ago. : Urine is cloudy, dark in color. EENT: No signs and/or symptoms were reported regarding the EENT system. Derm: No signs and/or symptoms reported regarding the dermatologic system. Musculoskeletal: No signs and/or symptoms reported regarding the musculoskeletal system. Vital Signs: 16:25 BP 145 / 75; Pulse 92; Resp 17; Temp 98.3; Pulse Ox 99% ; Weight 63.5 kg; Height 5 ft. ap3 3 in. (160.02 cm); 17:32 BP 126 / 95; Pulse 108; Resp 18; Pulse Ox 96% on R/A; eh3 16:25 Body Mass Index 24.80 (63.50 kg, 160.02 cm) ap3 ED Course: 16:18 Patient arrived in ED. am2 16:20 Sridevi Man[facility]C [facility]. kb 16:20 Mirza Martinez MD is Attending Physician. kb 16:28 Triage completed. ap3 16:29 Arm band placed on right wrist. ap3 17:06 Allison Washington is Primary Nurse. eh3 17:35 Missed attempt(s): 20 gauge in left antecubital area. Bleeding controlled, band aid eh3 applied, catheter tip intact. 17:49 Initial lab(s) drawn, by me. Inserted saline lock: 22 gauge in left antecubital area, mb4 using aseptic technique. Blood collected. 18:49 Diet: Patient given snack. Patient given water. Tolerated well. mb4 19:13 No provider procedures requiring assistance completed. eh3 19:20 Patient has correct armband on for positive identification. Bed in low position. Call eh3 light in reach. Side rails up X2. 19:20 intact, bleeding controlled, No redness/swelling at site. Pressure dressing applied. eh3 Administered Medications: 17:54 Drug: NS 0.9% 1000 ml Route: IV; Rate: 1000 ml; Site: left antecubital; eh3 19:21 Follow up: Response: No adverse reaction eh3 17:54 Drug: Phenergan (promethazine) 6.25 mg Route: IVP; Site: left antecubital; eh3 19:21 Follow up: Response: No adverse reaction eh3 18:31 Drug: NS 0.9% 1000 ml Route: IV; Rate: 1000 ml; Site: left antecubital; ld1 19:21 Follow up: Response: No adverse reaction eh3 Medication: 19:20 VIS not applicable for this client. eh3 Outcome: 19:02 Discharge ordered by . kb 19:19 Discharged to home ambulatory. eh3 19:19 Condition: stable 19:19 Discharge instructions given to patient, Instructed on discharge instructions, follow up and referral plans. medication usage, Demonstrated understanding of instructions, follow-up care, medications. 19:22 Patient left the ED. eh3 Signatures: Sridevi Manzo, HAND MOLDER AND CASTER-C HAND MOLDER AND CASTER-Ckb Anne Marie Conley am2 Anne Marie Tinajero RN RN ap3 Jovana Rm mb4 Janie Gonzalez RN RN ld1 Allison Washington eh3
[2022-01-26 19:56] VITALS: TEMP 98.3
[2022-01-26 19:58] VITALS: BP 126/95; O2SAT 96
== END 2022-01-26 19:22 | disposition home or self-care (01) ==
LOC: ER 16:17
DX: O21.9 Vomiting of pregnancy, unspecified (principal); R11.2 Nausea with vomiting, unspecified; Z3A.01 Less than 8 weeks gestation of pregnancy; Z72.0 Tobacco use
CPT/HCPCS: 85025; 80048; 36415; 81025; 81003; J2550; J7030 ×2; 96374; 99283

== ENCOUNTER 2022-02-08 07:53 | Emergency (ER) | payer OTHER ==
--- OUTSIDE RECORDS SUMMARY | 2022-02-08 07:55 | XMS REPORT | Continuity of Care Document ---
:[address] [facility] t Address [address] [place] [address] Care Team Providers Name Role Phone MEJIA LINCOLN Primary Care Physician Unavailable Rayshawn Morse Attending Clinician Rayshawn ALMEIDA Attending Clinician Unavailable Mejia Lincoln MD Attending Clinician Payers Payer Name Policy Type Policy Number Effective Date Expiration Date Florentino CALIX [id number] 2019 HEALTH 00:00:00 Problems Condition Condition Condition Status Onset Resolution Last Treating Co mments Source Name Details Category Date Date Treatment Clinician Date Susceptibl Susceptibl Disease Active Overview : Univers e to e to 01-21 Formattin ity of varicella varicella 00:00: [place] (non-immun (non-immun 00 note Me dical e), e), might be Branch currently currently different from the original. Address pp Supervisio Supervisio Disease Active U david n of n of 01-20 [place] [facility] Chlamydia Chlamydia Disease Active Overview: Univers infection infection 01-20 Formattin i ty of affecting affecting 00:00: [place] of this [place] 00 note [facility] might be Branch different from the original. Reports dx on 01/20/22 at [facility], she reports she was treated Over Over Disease Active Univers weight weight 01-20 ity of 00:00: [place] 00 Medical Branch Multiparit Multiparit Disease Active U nivers y y 4 ity of 00:00: [place] 00 [facility] History of History of Disease Active Overview : Univers 10-18 Formattin ity o f delivery delivery 00:00: g of this [place] 00 note Medical might be Branch different from the original. 1st preg 28w4d see scanned [id number] d preg [id number] preg 35 weeks per patient Flu Flu Disease Active Overview: Univer s vaccine vaccine 10-18 Formattin ity o f need need 00:00: g of this [place] 00 note Medical might be Branch different from the original. Received today Allergies, Adverse Reactions, Alerts Allergy Allergy Status Severity Reaction(s) Onset Inactive Treating Comm ents Source Name Type Date Date Clinician No Known DA Active U 2017-07 [facility] [place] No Known DA Active U 2016-07 [facility] Allergie -06 [facility] [place] NO KNOWN Drug Active Univers ALLERGIE Class ity of S [facility] Social History Social Habit Start Date Stop Date Quantity Comments Source ASSERTION 2021-12-21 University of 00:00:00 [facility] Exposure to 2022-01-10 2022-01-20 Not sure [facility] SARS-CoV-2 00:00:00 14:32:00 [facility] (event) Branch Alcohol intake 2022-01-20 2022-01-20 Current [facility] 00:00:00 00:00:00 non-drinker of [facility] alcohol (finding) Branch Tobacco use and 2017-10-18 2017-10-18 Smokeless tobacco Un iversity of exposure 00:00:00 00:00:00 non-user [facility] Sex Assigned At 2000 2000 Universit y of 00:00:00 00:00:00 [facility] Smoking Status Start Date Stop Date Source Never smoked tobacco [facility] Medications Ordered Filled Start Stop Current Ordering Indication Dosage Frequency Signature Comments Components Source Medication Medication Date Date Medication? Clinician (SIG) Name Name ondansetron Yes Take by Un kei HCl (ZOFRAN 7-06 mouth. ity of ORAL) 14:37: [place] 58 Medical Branch proMETHazin Yes [id number] 25mg Take 1 Univers e 25 mg 7-06 tablet by ity of tablet 00:00: mouth [place] 00 every 6 Medical (six) Branch hours as needed for Nausea and Vomiting (N/V). Yes [id number] 1{tbl} Take 1 U nivers multivitami 7-06 tablet by ity of n ( 00:00: mouth [place] VITAMIN) 00 daily. Medical tablet Branch acetaminoph Yes 160mg Take 1 Tab Univers en 8-19 by mouth ity of (TYLENOL) 00:00: every 6 [place] 160 mg 00 (six) Medical chewable hours as Branch tablet needed for Pain. 2 1/2 tablets every 4-6 hours as needed for fever/pain Immunizations Ordered Filled Immunization Date Status Comments Sourc e Immunization Name Name TDAP 2020-05-20 Completed University of 00:00:00 [facility] Influenza Virus 2020-04-16 Completed Universit y of Vaccine Quad .5 mL 00:00:00 [facility] IM 6+ MO Branch TDAP 2018-03-23 Completed University 00:00:00 [facility] Influenza Virus 2017-10-18 Completed Universit y of Vaccine Quad IM 3+ 00:00:00 [facility] Branch HEPATITIS A 2009-09-03 Completed University of 00:00:00 [facility] Pneumococcal 7 2005-10-11 Completed University of Conjugate, PCV7 00:00:00 [place] Med ical (Prevnar7) Branch Varicella 2005-10-11 Completed University of (varivax)(chicken 00:00:00 [place] M edical pox) Branch DTAP 2004-06-17 Completed University of 00:00:00 [facility] MMR 2004-06-17 Completed University of 00:00:00 [facility] Polio (IPV/OPV) 2004-06-17 Completed Universit y of 00:00:00 [facility] DTAP 2001-09-11 Completed University of 00:00:00 [facility] HIB 4 Dose Schedule 2001-06-19 Completed Unive rsity of 00:00:00 [facility] MMR 2001-06-19 Completed University of 00:00:00 [facility] Varicella 2001-06-19 Completed University of (varivax)(chicken 00:00:00 [place] M edical pox) Branch DTAP 2000 Completed University of 00:00:00 [facility] HIB 4 Dose Schedule 2000 Completed Unive rsity of 00:00:00 [facility] Hep B, Adol or Pedi 2000 Completed Unive rsity of Dosage 00:00:00 [facility] Pneumococcal 7 2000 Completed University of Conjugate, PCV7 00:00:00 [facility] [place] ical (Prevnar7) Branch Polio (IPV/OPV) 2000 Completed Universit y of 00:00:00 [facility] DTAP 2000 Completed University of 00:00:00 [facility] HIB 4 Dose Schedule 2000 Completed Unive rsity of 00:00:00 [facility] Polio (IPV/OPV) 2000 Completed Universit y of 00:00:00 [facility] DTAP 2000 Completed University of 00:00:00 [facility] HIB 4 Dose Schedule 2000 Completed Unive rsity of 00:00:00 [facility] Hep B, Adol or Pedi 2000 Completed Unive rsity of Dosage 00:00:00 [facility] Polio (IPV/OPV) 2000 Completed Universit y of 00:00:00 [facility] Hep B, Adol or Pedi 2000 Completed Unive rsity of Dosage 00:00:00 [facility] Procedures This patient has no known procedures. Encounters Start End Encounter Admission Attending Care Care Encounter Source Date/Time Date/Time Type Type Clinicians Facility Department ID 2022-03-08 2022-03-08 Outpatient P [facility] [id number] Univers 14:00:00 14:00:00 [id number] ity of [facility] 2022-03-08 2022-03-08 Outpatient P [facility] [id number] Univers 13:00:00 13:00:00 ity of [facility] 2022-01-26 2022-01-26 Telephone Elle [facility] [id number] Univers 00:00:00 00:00:00 Estrella Tabares SALESPERSON ART OBJECTS [id number] ity [facility] [id number] Neil as MATERNAL [id number] Med ical & CHILD [address] [place] [address] 2022-01-20 2022-01-20 Outpatient R ELLE [facility] [id number] Univers 14:15:00 15:32:17 ESTRELLA reilly f [facility] 2020-06-25 2020-06-25 Routine Xuan Lincoln [facility] [id number] 10:28:43 11:59:31 [place] [id number] Visit [place] [id number] Professio [id number] [facility] [address] [facility] Results This patient has no known results.
[2022-02-08] MEDS ORDERED: LIDOCAINE 1% MPF 5 ML VIAL ONE (08:27)
[2022-02-08] MEDS ORDERED: BUPIVACAINE 0.5% PF 10 ML VIAL ONE (08:27)
[2022-02-08] MEDS ORDERED: HYDROCODONE/APAP 5/325 MG TAB ONE (08:27)
[2022-02-08] MEDS ORDERED: TETANUS & DIPHTHERIA TOX,ADULT 0.5 ML VIAL ONE (08:33)
--- NOTE | 2022-02-08 09:05 | RAD REPORT ---
EXAM DESCRIPTION: RAD - Forearm Right - 02/08/2022 8:49 am CLINICAL HISTORY: ANIMAL BITE, site not delineated COMPARISON: Tib Fib Left dated 02/08/2022 FINDINGS: No fracture is identified. There is no dislocation or periosteal reaction noted. No bone o r joint abnormality identified. Soft tissue injury is present in the mid forearm. No air or foreign body in the soft tissues. IMPRESSION: No air or foreign body in the soft tissues. No bone or joint abnormality in the right forearm.
--- NOTE | 2022-02-08 09:06 | RAD REPORT ---
EXAM DESCRIPTION: RAD - Tib Fib Left - 02/08/2022 8:49 am CLINICAL HISTORY: Dog bite distal left leg COMPARISON: None. FINDINGS: No fracture is identified. There is no dislocation or periosteal reaction noted. No acute or suspicious bony or joint finding. Soft tissue injuries identifiable in the posterior distal portion of the left leg. Soft tissue air is present dissecting from the distal shaft level to the posterior margin of the ankle joint. IMPRESSION: Air is present in the soft tissues of the left leg posteriorly extending from the level of the distal shaft inferiorly to the level of the ankle joint. No acute bone or joint finding.
--- NOTE | 2022-02-08 09:55 | ER ---
Nurse's Notes [facility] Name: Barbara Moran Age: 21 yrs Sex: Female : 2000 Arrival Date: 02/08/2022 Time: 08:00 Bed 8 Private MD: Diagnosis: Laceration without foreign body of right forearm;Laceration without foreign body, left lower leg Presentation: 02/08 08:11 Chief complaint: EMS states: patients dog was fighting with another and patient tried kr3 to break up dog fight. Wounds to RFA and Left lower leg. Patient is 6 weeks . Coronavirus screen: Vaccine status: Patient reports being unvaccinated. Client denies travel out of the [place] in the last 14 days. Ebola Screen: Patient denies travel to an Ebola-affected area in the 21 days before illness onset. Initial Sepsis Screen: Does the patient meet any 2 criteria? No. Patient's initial sepsis screen is negative. Does the patient have a suspected source of infection? Yes: Skin breakdown/wound. Risk Assessment: Do you want to hurt yourself or someone else? Patient reports no desire to harm self or others. Onset of symptoms was February 08, 2022. 08:11 Method Of Arrival: EMS kr3 08:11 Acuity: LUCIA 4 kr3 Triage Assessment: 08:20 Bite description: bite sustained to right forearm. Bite description: by a dog, animal kr3 information: vaccination(s) is current. General: Appears distressed, uncomfortable, Behavior is cooperative, anxious. Pain: Complains of pain in right arm and left leg. 08:22 Bite description: animal information: Animal control has been notified, dog picked up kr3 by animal control prior to arrival. 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 - Social history:: Smoking status: Patient reports the use of cigarette tobacco products, smokes one-half pack cigarettes per day. Screenin:43 Abuse screen: Denies threats or abuse. Nutritional screening: No deficits noted. kr3 Tuberculosis screening: No symptoms or risk factors identified. Fall Risk None identified. Assessment: 10:44 Derm: Skin is intact, is thin, Skin is pink, warm \T\ dry. Musculoskeletal: No deficits kr3 noted. Vital Signs: 08:11 BP 109 / 95; Pulse 68; Resp 18; Temp 98.8; Pulse Ox 100% on R/A; kr3 10:35 BP 103 / 73; Pulse 80; Resp 18; Pulse Ox 99% on R/A; kr3 ED Course: 08:00 Patient arrived in ED. kr3 08:01 Arm band placed on Patient placed in a hallway bed, on a stretcher. kr3 08:06 James Mabry NP is PHCP. pm1 08:06 Mateo Ludwig MD is Attending Physician. pm1 08:18 Triage completed. kr3 08:39 Danielle Mensah, ALONSO is Primary Nurse. kr3 08:50 Tib Fib Left XRAY In Process Unspecified. EDMS 08:50 Forearm Right XRAY In Process Unspecified. EDMS 10:44 No provider procedures requiring assistance completed. Patient did not have IV access kr3 during this emergency room visit. 10:46 Bed in low position. Call light in reach. Side rails up X 1. kr3 Administered Medications: 08:25 Drug: HYDROcodone-acetaminophen 5 mg-325 mg 1 tabs {Note: RASS 0 pain 04/26.} Route: PO;kr3 10:50 Follow up: Response: No adverse reaction kr3 08:38 Drug: Tetanus-Diphtheria Toxoid Adult 0.5 ml {Rush Seater: [employer]. Exp: kr3 10/10/2023. Lot #: [id number]. } Route: IM; Site: left deltoid; 10:50 Follow up: Response: No adverse reaction kr3 10:00 Drug: Lidocaine (1 %) 5 ml {Note: admin by MAGDALENA Wright during suture repair.} Volume: ll1 5 ml; Route: Infiltration; 10:50 Follow up: Response: No adverse reaction kr3 10:00 Drug: Bupivacaine (0.5 %) 10 ml {Note: admin by MAGDALENA Wright during suture repair.} ll1 Volume: 10 ml; Route: Infiltration; 10:49 Follow up: Response: No adverse reaction kr3 Medication: 10:47 Vaccine Information Statement (VIS) provided today. Questions and/or concerns kr3 addressed. VIS edition date: February 20, 2021. Outcome: 09:55 Discharge ordered by . pm1 10:45 Discharged to home via wheelchair, with family. kr3 10:45 Condition: stable 10:45 Discharge instructions given to patient, Instructed on discharge instructions, follow up and referral plans. medication usage, Demonstrated understanding of instructions, follow-up care, medications, wound care, Prescriptions given X 1. 10:50 Patient left the ED. kr3 Signatures: Dispatcher [employer] EDMS James Mabry NP SQL DEVELOPER pm1 Earnestine Montilla, ALONSO RN ll1 Danielle Mensah RN RN kr3 Corrections: (The following items were deleted from the chart) 08:41 08:25 HYDROcodone-acetaminophen 5 mg-325 mg 1 tabs PO kr3 kr3 08:43 08:11 BP 109 / 95; Pulse 68bpm; Resp 18bpm; Pulse Ox 100% RA; kr3 kr3 10:48 10:42 Response: No adverse reaction ll1 kr3 10:48 10:42 Response: No adverse reaction ll1 kr3
--- NOTE | 2022-02-08 09:56 | EDPHYS ---
Physician Documentation [facility] Name: Barbara Moran Age: 21 yrs Sex: Female : 2000 Arrival Date: 02/08/2022 Time: 08:00 Bed 8 Private MD: ED Physician Mateo Ludwig HPI: 02/08 08:29 This 21 yrs old Female presents to ER via EMS with complaints of Dog Bite. pm1 08:29 The patient was bitten on the left leg and right arm, by a dog, Patient was attempting pm1 to breakup the fight between her two dogs, at home. Onset: The symptoms/episode began/occurred just prior to arrival. Animal information: The animal was reported to appear healthy. Animal's vaccinations are up to date. Secondary to the bite the patient reports multiple lacerations, that are superficial, with the longest being 2 cm(s), and the total laceration length being 4 cm(s), multiple puncture wounds, that are superficial. Associated signs and symptoms: Pertinent positives: pain at site, Pertinent negatives: bony tenderness, numbness distal to wound, swelling at site. Severity of symptoms: in the emergency department the symptoms have improved, bleeding resolved with pressure dressing by EMS. The patient has not experienced similar symptoms in the past. The patient has not recently seen a physician. 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 - Social history:: Smoking status: Patient reports the use of cigarette tobacco products, smokes one-half pack cigarettes per day. ROS: 08:29 Constitutional: Negative for fever, chills, and weight loss, Cardiovascular: Negative pm1 for chest pain, palpitations, and edema, Respiratory: Negative for shortness of breath, cough, wheezing, and pleuritic chest pain. 08:29 Neuro: Negative for headache, weakness, numbness, tingling, and seizure. 08:29 MS/extremity: Positive for laceration, puncture, of the left leg and right arm. 08:29 Skin: Positive for laceration(s), puncture, of the left leg and right arm. 08:29 All other systems are negative. Exam: 08:29 Constitutional: This is a well developed, well nourished patient who is awake, alert, pm1 and in no acute distress. Head/Face: Normocephalic, atraumatic. 08:29 Eyes: Exam is negative for acute changes, Extraocular movements: no acute changes. 08:29 Cardiovascular: Exam negative for acute changes, Rate: normal, Rhythm: regular, Pulses: no pulse deficits are appreciated. 08:29 Respiratory: Exam negative for acute changes, respiratory distress, shortness of breath. 08:29 Musculoskeletal/extremity: Extremities: grossly normal except: noted in the left distal medial and lateral aspect of left lower leg: superficial laceration present to distal left lower le cm laceration on lateral aspect and 1 cm laceration on medial aspect, noted in the right forearm proximal aspect: 2 superficial lacerations to proximal dorsal and medial aspect of left forearm 1 cm in length each, ROM: intact in all extremities, Circulation is intact in all extremities. the left foot and left leg Sensation intact. Calves: are non-tender, negative for pain with palpation and squeezing of left calf muscle. Achilles tendon negative for pain and appears intact. 08:29 Neuro: Exam negative for acute changes, Orientation: is normal, Mentation: is normal, Motor: moves all fours. Vital Signs: 08:11 BP 109 / 95; Pulse 68; Resp 18; Temp 98.8; Pulse Ox 100% on R/A; kr3 10:35 BP 103 / 73; Pulse 80; Resp 18; Pulse Ox 99% on R/A; kr3 MDM: 08:06 Patient medically screened. pm1 08:40 Data reviewed: vital signs. Data interpreted: Pulse oximetry: on room air is 100 %. pm1 Interpretation: normal. 09:52 Counseling: I had a detailed discussion with the patient and/or guardian regarding: the pm1 historical points, exam findings, and any diagnostic results supporting the discharge/admit diagnosis, radiology results, the need for outpatient follow up, suture removal in 10-14 days, to return to the emergency department if symptoms worsen or persist or if there are any questions or concerns that arise at home. 09:52 Special discussion: I discussed in detail with the patient the higher chance of wound pm1 infection based on his presenting history. scarring due to non-cosmetic closure, approximating the wounds close enough to reduce scarring but allowing drainage. 09:52 ED course: left lateral ankle wound with fat tissue removed in dog bite that was about pm1 the size of a nickel. Closed to approximate wound but allow drainage. Informed patient that the nature of the wound would lead to scarring . 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 Exp: kr3 10/10/2023. Lot #: [id number]. } Route: IM; Site: left deltoid; 10:50 Follow up: Response: No adverse reaction kr3 10:00 Drug: Lidocaine (1 %) 5 ml {Note: admin by MAGDALENA Wright during suture repair.} Volume: ll1 5 ml; Route: Infiltration; 10:50 Follow up: Response: No adverse reaction kr3 10:00 Drug: Bupivacaine (0.5 %) 10 ml {Note: admin by MAGDALENA Wright during suture repair.} ll1 Volume: 10 ml; Route: Infiltration; 10:49 Follow up: Response: No adverse reaction kr3 Disposition Summary: 02/08/22 09:55 Discharge Ordered Location: Home pm1 Problem: new pm1 Symptoms: have improved pm1 Condition: Stable pm1 Diagnosis - Laceration without foreign body of right forearm pm1 - Laceration without foreign body, left lower leg pm1 Followup: pm1 - With: Emergency Department - When: As needed - Reason: Worsening of condition Followup: pm1 - With: Private Physician - When: 10 - 14 days - Reason: Recheck today's complaints, Continuance of care, Staple/Suture removal, Re-evaluation by your physician Discharge Instructions: - Discharge Summary Sheet pm1 - Laceration Care, Adult pm1 - Animal Bite, Adult pm1 Forms: - Medication Reconciliation Form pm1 - Thank You Letter pm1 - Antibiotic Education pm1 - Prescription Opioid Use pm1 Prescriptions: - Augmentin 875-125 mg Oral Tablet - take 1 tablet by ORAL route every 12 hours for 10 days; 20 tablet; Refills: 0, pm1 Product Selection Permitted Signatures: Dispatcher [employer] James Small NP PIPE STEM REPAIRER pm1 Earnestine Montilla, RN RN ll1 Danielle Mensah RN RN kr3
[2022-02-08 10:57] VITALS: TEMP 98.8
[2022-02-08 11:00] VITALS: BP 103/73; O2SAT 99
== END 2022-02-08 10:50 | disposition home or self-care (01) ==
LOC: ER 07:53
DX: O9A.211 Injury, poisoning and certain other consequences of external causes complicating pregnancy, first trimester (principal); S51.811A Laceration without foreign body of right forearm, initial encounter; S81.812A Laceration without foreign body, left lower leg, initial encounter; O99.331 Smoking (tobacco) complicating pregnancy, first trimester; W54.0XXA Bitten by dog, initial encounter; F17.210 Nicotine dependence, cigarettes, uncomplicated; Z3A.01 Less than 8 weeks gestation of pregnancy; Z23 Encounter for immunization
CPT/HCPCS: 90471; 90714; 99284

== ENCOUNTER 2024-03-05 10:12 | Emergency (ER) | payer OTHER ==
[2024-03-05] MEDS ORDERED: DERMABOND SKIN ADHESIVE TOP ONE (11:22)
--- NOTE | 2024-03-05 11:25 | ER ---
Nurse's Notes [facility] Name: Barbara Moran Age: 23 yrs Sex: Female : 2000 Arrival Date: 03/05/2024 Time: 10:12 Bed 18 Private MD: Diagnosis: Foot Laceration/ Open wound of foot Presentation: 03/05 10:23 Chief complaint: Patient states: Stepped on broken glass last night at 2200. Laceration ll1 R foot, bleeding controlled. No fever. Coronavirus screen: Client denies travel out of the [place] in the last 14 days. At this time, the client does not indicate any symptoms associated with coronavirus-19. Ebola Screen: Patient denies travel to an Ebola-affected area in the 21 days before illness onset. Complicating Factors: There are no complicating factors for this patient. Initial Sepsis Screen: Does the patient meet any 2 criteria? No. Patient's initial sepsis screen is negative. Does the patient have a suspected source of infection? No. Patient's initial sepsis screen is negative. Risk Assessment: Do you want to hurt yourself or someone else? Patient reports no desire to harm self or others. Onset of symptoms was March 04, 2024. 10:23 Method Of Arrival: Ambulatory ll1 10:23 Acuity: LUCIA 4 ll1 Triage Assessment: 10:25 General: Appears uncomfortable, Behavior is calm, cooperative, appropriate for age. ll1 Pain: Complains of pain in right foot Quality of pain is described as aching. Derm: Reports laceration bottom of R foot. Injury Description: Laceration. Historical: - Allergies: 10:23 No Known Allergies; ll1 - PMHx: 10:23 None; ll1 - PSHx: 10:23 None; ll1 - Immunization history:: Adult Immunizations up to date. - Infectious Disease History:: Denies. - Social history:: Smoking status: Patient denies any tobacco usage or history of. Screenin:15 [facility] ED Fall Risk Assessment (Adult) History of falling in the last 3 months, db including since admission No falls in past 3 months (0 pts) Confusion or Disorientation No (0 pts) Intoxicated or Sedated No (0 pts) Impaired Gait No (0 pts) Mobility Assist Device Used No (0 pt) Altered Elimination No (0 pt) Score/Fall Risk Level 0 - 2 = Low Risk Oriented to surroundings, Maintained a safe environment. Abuse screen: Denies threats or abuse. Denies injuries from another. Nutritional screening: No deficits noted. Tuberculosis screening: No symptoms or risk factors identified. Assessment: 10:52 Reassessment: Patient appears in no apparent distress at this time. Patient and/or db family updated on plan of care and expected duration. Pain level reassessed. Patient is alert, oriented x 3, equal unlabored respirations, skin warm/dry/pink. PATIENT FOOT PLACED IN SALINE/IODINE. STATES INJURY OCCURRED LAST NIGHT. NOTED DRIED BLOOD TO BOTTOM OF RIGHT FOOT. General: Appears in no apparent distress. comfortable, Behavior is calm, cooperative. Pain: Complains of pain in right foot. Neuro: Level of Consciousness is awake, alert, obeys commands, Oriented to person, place, time, situation. Respiratory: Airway is patent Respiratory effort is even, unlabored, Respiratory pattern is regular, symmetrical. Derm: Wound noted Wound is LACERATION RIGHT FOOT. Musculoskeletal: Circulation, motion, and sensation intact. Capillary refill < 3 seconds, Range of motion: intact in all extremities. 11:28 Reassessment: DERMABOND AND SUPPLIES AT PATIENT BEDSIDE FOR REPAIR. PT REFUSED SUTURE db REPAIR. 11:42 Reassessment: Patient appears in no apparent distress at this time. Patient and/or db family updated on plan of care and expected duration. Pain level reassessed. Patient is alert, oriented x 3, equal unlabored respirations, skin warm/dry/pink. 11:42 Injury Description: Laceration is. db Vital Signs: 10:23 BP 110 / 66; Pulse 64; Resp 16; Temp 97.7(TE); Pulse Ox 100% ; Weight 50.8 kg; Height 5 ll1 ft. 3 in. ; Pain 10/10; 11:30 BP 116 / 74; Pulse 80; Resp 16; Pulse Ox 100% on R/A; db 10:23 Body Mass Index 19.84 (50.80 kg, 160.02 cm) ll1 10:23 Pain Scale: Adult ll1 ED Course: 10:14 Patient arrived in ED. ra3 10:15 Patient has correct armband on for positive identification. Bed in low position. Call db light in reach. Side rails up X 1. Client placed on continuous cardiac and pulse oximetry monitoring. NIBP monitoring applied. threat monitoring analyst on. Pulse ox on. NIBP on. Warm blanket given. 10:20 Minna Tian MD is Attending Physician. gb1 10:23 Arm band placed on Patient placed in an exam room, on a stretcher. ll1 10:25 Triage completed. 1 10:52 Jacinta Ugalde, RN is Primary Nurse. db 11:28 Assist provider with laceration repair Set up tray. Performed by Minna arredondo Patient tolerated well. 11:41 Provided Education on: LACERATION REPAIR AND HOME CARE. db 11:41 Patient did not have IV access during this emergency room visit. db Administered Medications: No medications were administered Medication: 11:41 VIS not applicable for this client. db Outcome: 11:25 Discharge ordered by . 1 11:41 Discharged to home via wheelchair, with family, db 11:41 Condition: stable 11:41 Discharge instructions given to patient, family, Instructed on discharge instructions, follow up and referral plans. 11:42 Patient left the ED. db Signatures: Earnestine Montilla, RN RN 1 Jacinta Ugalde, RN RN db Minna Tian MD MD gb1 Rachel Malone ra3
--- NOTE | 2024-03-05 11:25 | EDPHYS ---
Physician Documentation [facility] Name: Barbara Moran Age: 23 yrs Sex: Female : 2000 Arrival Date: 03/05/2024 Time: 10:12 Bed 18 Private MD: ED Physician Minna Tian HPI: 03/05 11:20 This 23 yrs old Female presents to ER via Ambulatory with complaints of gb1 Laceration To Foot. Historical: - Allergies: 10:23 No Known Allergies; ll1 - PMHx: 10:23 None; ll1 - PSHx: 10:23 None; ll1 - Immunization history:: Adult Immunizations up to date. - Infectious Disease History:: Denies. - Social history:: Smoking status: Patient denies any tobacco usage or history of. Exam: 11:30 Constitutional: This is a well developed, well nourished patient who is awake, alert, gb1 and in no acute distress. Head/Face: Normocephalic, atraumatic. Eyes: Pupils equal round and reactive to light, extra-ocular motions intact. Lids and lashes normal. Conjunctiva and sclera are non-icteric and not injected. Cornea within normal limits. Periorbital areas with no swelling, redness, or edema. Neck: Trachea midline, no thyromegaly or masses palpated, and no cervical lymphadenopathy. Supple, full range of motion without nuchal rigidity, or vertebral point tenderness. No Meningismus. Chest/axilla: Normal chest wall appearance and motion. Nontender with no deformity. No lesions are appreciated. Cardiovascular: Regular rate and rhythm with a normal S1 and S2. No gallops, murmurs, or rubs. Normal PMI, no JVD. No pulse deficits. Respiratory: Lungs have equal breath sounds bilaterally, clear to auscultation and percussion. No rales, rhonchi or wheezes noted. No increased work of breathing, no retractions or nasal flaring. MS/ Extremity: +0.5 inch laceration to right lateral plantar foot, tender to the touch. Vital Signs: 10:23 BP 110 / 66; Pulse 64; Resp 16; Temp 97.7(TE); Pulse Ox 100% ; Weight 50.8 kg; Height 5 ll1 ft. 3 in. ; Pain 10/10; 11:30 BP 116 / 74; Pulse 80; Resp 16; Pulse Ox 100% on R/A; db 10:23 Body Mass Index 19.84 (50.80 kg, 160.02 cm) ll1 10:23 Pain Scale: Adult ll1 Laceration: 11:20 Wound Repair of 1.3cm ( 0.5in ) subcutaneous laceration to right foot. Distal gb1 neuro/vascular/tendon intact. Skin closed with steri stirps Adhesive skin closure using Dermabond. Dressed with bandaid. Patient tolerated well. MDM: 10:20 Patient medically screened. gb1 11:20 ED course: 23 year old female with small superficial laceration, recommended closure gb1 with sutures, as I examined wound in bloodless field. Doubt FB glass, probed wound in bloodless field. Pt chose dermabond closure with steri strips- which I didn't recommend due to increased risk of infection. . 11:30 Data reviewed: vital signs, nurses notes. gb1 03/05 11:21 Order name: Dermabond; Complete Time: 11:21 db Administered Medications: No medications were administered Disposition Summary: 03/05/24 11:25 Discharge Ordered Notes: Location: Home gb1 Condition: Stable gb1 Diagnosis - Foot Laceration/ Open wound of foot gb1 Followup: gb1 - With: Private Physician - When: - Reason: Re-evaluation by your physician Discharge Instructions: - Discharge Summary Sheet gb1 - Laceration Care, Adult, [id number] gb1 Forms: - Medication Reconciliation Form gb1 - Antibiotic Education gb1 - Prescription Opioid Use gb1 - Patient Portal Instructions gb1 - Leadership Thank You Letter gb1 Signatures: Earnestine Montilla, RN RN ll1 Jacinta Ugalde, RN RN db Minna Tian MD MD gb1
[2024-03-05 11:48] VITALS: TEMP 97.7; O2SAT 100
[2024-03-05 11:50] VITALS: BP 116/74
--- OUTSIDE RECORDS SUMMARY | 2024-03-06 13:53 | XMS REPORT | Continuity of Care Document ---
Author Name Unknown Address [address] [facility] [address] [place] [address] [facility] thconnect Address [address] 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 Role Phone Pcp, Patient Does Not Have A Primary Care Physic carlos Estrella Morse Attending Clinician + ESTRELLA HOLLAND Attending Clinician Unavail able Nurse, [facility] Rmch[facility] Rg[facility] Cprit Obgyn Attending Clini ADALID Madison Attending Clinician ADALID Nails Attending Clinician NICK Multani Attending Clinician NICK Ovalles Attending Clinician Lamar elizabeth Nurse, [facility] Attending Clinician Angeline Bills MD Attending Clinician [phone] ANGELINE BARRAZA Attending Clinician Unavailable Doctor Unassigned, Luis Lopez Attending Clinician U navailable BRIAN DU Attending Clinician Unavailable Brian Garcia Attending Clinician [phone] Unknown, Attending Attending Clinician Unavailab CHRISTIANO Whitley Attending Clinician Unavailable Latonia PARSONS, Christiano Morris Attending Clinician [phone] Izaiah Rogers MD Attending Clinician [phone] Lab, Ang - Db Attending Clinician Unavailable 1, [facility] Attending Clinician Unavailab stevie Lazar MD, Daniela Ovalles Attending Clinician + DANIELA LAZAR Attending Clinician Unav ailable Marguerite WAGNER, Cristian Attending Clinician Unavailable RENATA DELCID Attending Clinician Unavailable Renata Delcid PA-C Attending Clinician [phone] 2, [facility] Lab Attending Clinician Unavailable Ultrasound, [facility] M[facility] Attending Clinician Unavaila clara White MD, Christian Attending Clinician + Nurse, [facility] Fam Attending Clinician Unavailable Only, Adc Test Attending Clinician Unavailable 1, [facility] Attending Clinician Unavailab Simi Monet DO Attending Clinician [phone] ANGELINE BARRAZA Admitting Clinician Unavailable Angeline Barraza MD Admitting Clinician [phone] Payers Payer Name Policy Type Policy Number Effective Date Expirati on Date Source [facility] [id number] 2017 00:00:00 [place] [id number] 2019 00:00:00 [facility] [place] [facility] [id number] 2023 00:00:00 Problems Condition Name Condition Details Condition Category Status Onset Date Resolution Date Last Treatment Date Treating Clinician Comments Source Need for HPV vaccinatio n Need for HPV vaccinatio n Disease Active - 00:00: 00 [facility] delivery delivery Disease Active 1-04 00:00: 00 [facility] uterine contractio ns in third trimester, antepartum uterine contractio ns in third trimester, antepartum Disease Active 07-21 00:00: 00 [facility] 34 weeks gestation of 34 weeks gestation of Disease Active 07-21 00:00: 00 [facility] Liveborn , of young , born in hospital by vaginal delivery Liveborn infant, of young , born in hospital by vaginal delivery Disease Active 1 00:00: 00 [facility] Abnormal quad screen Abnormal quad screen Disease Active 2021-07 0 00:00: 00 Overview: Formattin g of this note might be different from the original. Recalcula alisha- normal [facility] Susceptibl e to varicella (non-immun e), currently Susceptibl e to varicella (non-immun e), currently Disease Active 01-21 00:00: 00 Overview: Formattin g of this note might be different from the original. Address pp [facility] Supervisio n of high-risk Supervisio n of high-risk Disease Active 01-20 00:00: 00 [facility] Chlamydia infection affecting Chlamydia infection affecting Disease Active 01-20 00:00: 00 Overview: Formattin g of this note might be different from the original. Reports dx on 01/20/22 at [facility], she reports she was treated [facility] Over weight Over weight Disease Active 01-20 00:00: 00 [facility] Multiparit y Multiparit y Disease Active 10-18 00:00: 00 [facility] History of delivery History of delivery Disease Active 10-18 00:00: 00 Overview: Formattin g of this note might be different from the original. 1st preg 28w4d see scanned levzjkx1v d preg vfze7lh preg 35 weeks per patient [facility] Flu vaccine need Flu vaccine need Disease Active 10-18 00:00: 00 Overview: Formattin g of this note might be different from the original. Received today [facility] Thrombophl ebitis of left saphenous vein Thrombophl ebitis of left saphenous vein Disease Active 09-03 00:00: 00 Overview: Formattin g of this note might be different from the original. Formattin g of this note might be different from the original. Dorsum of left foot and distal saphenous vein [facility] Abscess or cellulitis of leg Abscess or cellulitis of leg Disease Active 08-25 00:00: 00 [facility] Allergies, Adverse Reactions, Alerts Allergy Name Allergy Type Status Severity Reaction(s) Onset Date Inactive Date Treating Clinician Comments Source No Known Allergie s DA Active U 2017-07 00:00: 00 [facility] No Known Allergie s DA Active U 2016-07 00:00: 00 [facility] NO KNOWN ALLERGIE S Drug Class Active [facility] Social History Social Habit Start Date Stop Date Quantity Comments Source ASSERTION 2021-12-08 00:00:00 [facility] Alcoholic beverage intake 2023-11-02 00:00:00 2023-11-02 00:00:00 Current non-drinker of alcohol (finding) [facility] Alcohol intake 2023-11-02 00:00:00 2023-11-02 00:00:00 Current non-drinker of alcohol (finding) [facility] Exposure to SARS-CoV-2 (event) 2022-09-26 00:00:00 2022-10-06 08:36:00 Not sure [facility] Tobacco use and exposure 2022-02-17 00:00:00 2022-02-17 00:00:00 Smokeless tobacco non-user [facility] History of Social function 2022-01-20 00:00:00 2022-01-20 00:00:00 [facility] Sex assigned at 2000 00:00:00 2000 00:00:00 [facility] Smoking Status Start Date Stop Date Source Never smoked tobacco [facility] Medications Ordered Medication Name Filled Medication Name Start Date Stop Date Current Medication? Ordering Clinician Indication Dosage Frequency Signature (SIG) Comments Components Source medroxyPROG ESTERone (DEPO-PROVE RA) syringe 150 mg 01-12 14:30: 00 01-12 13:38 :00 No [id number] 150mg [facility] medroxyPROG ESTERone (DEPO-PROVE RA) injection 150 mg 10-06 14:45: 00 10-06 13:54 :00 No [id number] 150mg [facility] ondansetron HCl (ZOFRAN ORAL) 07-21 20:35: 33 Yes Take by mouth. [facility] medroxyPROG ESTERone (DEPO-PROVE RA) injection 150 mg 07-21 16:45: 00 07-22 01:33 :00 No 150mg 150 mg, Intramuscu lar, ONCE, 1 dose, On Tue07/21/22 at 1045, Routine [facility] HYDROcodone -acetaminop hen (NORCO 5) 5-325 mg tablet 1 tablet 07-21 15:36: 54 Yes 1{tbl} 1 tablet, Oral, Q6HPRN, Starting on Tue07/21/22 at 0936, Until Discontinu ed, Routine, Pain (scale 7-10) [facility] ibuprofen (IBU) tablet 600 mg 07-21 15:36: 54 Yes 600mg 600 mg, Oral, Q6HPRN, Starting on Tue07/21/22 at 0936, Until Discontinu ed, Routine, Pain (scale 4-6) [facility] acetaminoph en (TYLENOL) tablet 650 mg 07-21 15:36: 54 Yes 650mg 650 mg, Oral, Q6HPRN, Starting on Tue07/21/22 at 0936, Until Discontinu ed, Routine, Pain (scale 1-3) [facility] diphenhydrA MINE (BENADRYL) tablet 25 mg 07-21 15:36: 54 Yes 25mg 25 mg, Oral, Q6HPRN, Starting on Tue07/21/22 at 0936, Until Discontinu ed, Routine, Sleep, Itching [facility] ondansetron (ZOFRAN (PF)) injection 4 mg 07-21 15:36: 53 Yes 4mg 4 mg, Slow IV Push, Q8HPRN, Starting on Tue07/21/22 at 0936, Until Discontinu ed, Routine, Nausea and Vomiting (N/V) [facility] simethicone (GAS RELIEF (SIMETHICON E)) chewable tablet 160 mg 07-21 15:36: 53 Yes 160mg 160 mg, Oral, PC+HSPRN, Starting on Tue07/21/22 at 0936, Until Discontinu ed, Routine, Gas [facility] docusate (COLACE) capsule 200 mg 07-21 15:36: 53 Yes 200mg 200 mg, Oral, QDAILYPRN, Starting on Tue07/21/22 at 0936, Until Discontinu ed, Routine, Constipati on [facility] magnesium hydroxide (MILK OF MAGNESIA) 400 mg/5 mL suspension 30 mL 07-21 15:36: 53 Yes 30mL 30 mL, Oral, QDAILYPRN, Starting on Tue07/21/22 at 0936, Until Discontinu ed, Routine, Constipati on [facility] benzocaine- menthol (DERMOPLAST ) 20-0.5 % topical spray 07-21 15:36: 53 Yes Topical, PRN, Starting on Tue07/21/22 at 0936, Until Discontinu ed, Routine, Perineum discomfort [facility] methylergon ovine (METHERGINE ) injection 0.2 mg 07-21 15:15: 00 07-21 15:10 :00 No .2mg 0.2 mg, Intramuscu lar, ONCE, 1 dose, On Tue07/21/22 at 0915, Routine [facility] ondansetron (ZOFRAN (PF)) injection 4 mg 07-21 13:15: 00 07-21 12:29 :00 No 4mg 4 mg, Slow IV Push, ONCE, On Tue07/21/22 at 0715, For 1 dose
Do ses of ondansetro n 16 mg and above need to be administer ed via IV piggyback. For Dose >=24mg ECG monitoring is advisable.
[facility] fentaNYL-ro pivacaine 2 mcg/mL-0.1 % (PF) in NS 200 mL epidural infusion RTU 07-21 11:45: 00 07-21 17:11 :21 No Epidural, ONCE INTRA PROCEDURE, Starting on Tue07/21/22 at 0545, Until Tue07/21/22 at 1111, Routine, Intra-op [facility] lidocaine-e pinephrine (XYLOCAINE W/EPINEPHRI NE) 1.5 %-1:200,000 injection 07-21 11:42: 00 07-21 17:11 :21 No Intraderma l, ONCE INTRA PROCEDURE, Starting on Tue07/21/22 at 0542, Until Tue07/21/22 at 1111, Routine, Intra-op [facility] oxytocin (PITOCIN) 30 units in NS 500 mL IV infusion 07-21 11:16: 20 07-21 15:38 :01 No 2mU/min at 2-40 mL/hr, IV Infusion, TITRATE, Starting on Tue07/21/22 at 0516, Until Tue07/21/22 at 0938, DEVANTE [facility] terbutaline (BRETHINE) injection 0.25 mg 07-21 11:15: 00 07-21 10:21 :00 No .25mg 0.25 mg, Subcutaneo us, ONCE, 1 dose, On Tue07/21/22 at 0515, Routine [facility] betamethaso ne acet,sod phos (CELESTONE SOLUSPAN) 6 mg/mL injection 12 mg 07-21 10:20: 00 07-21 15:38 :01 No 12mg 12 mg, Intramuscu lar, Q24H, First dose on Tue07/21/22 at 0430, Until Discontinu ed, Routine [facility] lactated ringers IV infusion 500 mL 07-21 10:12: 49 07-21 15:38 :01 No 500mL at 999 mL/hr, 500 mL, IV Infusion, PRN - SEE INSTRUCTIO NS, Starting on Tue07/21/22 at 0412, Until Tue07/21/22 at 0938, Routine [facility] D5W-LR IV infusion 1,000 mL 07-21 10:12: 49 07-21 15:38 :01 No 1000mL at 1-125 mL/hr, IV Infusion, TITRATE, Starting on Tue07/21/22 at 0412, Until Tue07/21/22 at 09, Routine [facility] ferrous sulfate 325 mg (65 mg iron) tablet 2021-07 00:00: 00 11-01 00:00 :00 No [id number] 325mg Take 1 tablet by mouth in the morning. [facility] metroNIDAZO LE 500 mg tablet 2021-07 00:00: 00 11-01 00:00 :00 No [id number] 500mg Take 1 tablet by mouth every 12 (twelve) hours. [facility] ondansetron HCl (ZOFRAN ORAL) 2021-07 15:03: 16 Yes Take by mouth. [facility] hydroxyprog esterone,PF , (SURAJ, PF,) 275 mg/1.1 mL injection 2021-07 0 00:00: 00 07-21 00:00 :00 No [id number] 275mg inject 1.1 mL under the skin weekly. [facility] proMETHazin e 25 mg tablet 8-03 00:00: 00 07-21 00:00 :00 No [id number] 25mg Take 1 tablet by mouth every 6 (six) hours as needed for Nausea and Vomiting (N/V). [facility] ondansetron HCl (ZOFRAN ORAL) 01-20 14:37: 58 11-01 00:00 :00 No Take by mouth. [facility] multivitami n ( VITAMIN) tablet 01-20 00:00: 00 Yes [id number] 1{tbl} Take 1 tablet by mouth daily. [facility] multivitami n ( VITAMIN) tablet 01-20 00:00: 00 11-01 00:00 :00 No [id number] 1{tbl} Take 1 tablet by mouth daily. [facility] proMETHazin e 25 mg tablet 01-20 00:00: 00 02-17 00:00 :00 No [id number] 25mg Take 1 tablet by mouth every 6 (six) hours as needed for Nausea and Vomiting (N/V). [facility] acetaminoph en (TYLENOL) 160 mg chewable tablet 03-05 00:00: 00 11-01 00:00 :00 No 160mg Take 1 Tab by mouth every 6 (six) hours as needed for Pain. 2 1/2 tablets every 4-6 hours as needed for fever/pain [facility] Immunizations Ordered Immunization Name Filled Immunization Name Date Status Comments Source TDAP 2022-06-29 00:00:00 Completed [facility] TDAP 2022-06-29 00:00:00 Completed [facility] TDAP 2022-06-29 00:00:00 Completed [facility] TDAP 2022-06-29 00:00:00 Completed [facility] TDAP 2022-06-29 00:00:00 Completed [facility] TDAP 2022-06-29 00:00:00 Completed [facility] TDAP 2022-06-29 00:00:00 Completed [facility] TDAP 2022-06-29 00:00:00 Completed [facility] TDAP 2022-06-29 00:00:00 Completed [facility] TDAP 2022-06-29 00:00:00 Completed [facility] TDAP 2022-06-29 00:00:00 Completed [facility] TDAP 2022-06-29 00:00:00 Completed [facility] TDAP 2022-06-29 00:00:00 Completed [facility] TDAP 2022-06-29 00:00:00 Completed [facility] TDAP 2022-06-29 00:00:00 Completed [facility] TDAP 2022-06-29 00:00:00 Completed [facility] TDAP 2022-06-29 00:00:00 Completed [facility] TDAP 2022-06-29 00:00:00 Completed [facility] TDAP 2022-06-29 00:00:00 Completed [facility] TDAP 2022-06-29 00:00:00 Completed [facility] TDAP 2022-06-29 00:00:00 Completed [facility] TDAP 2020-05-20 00:00:00 Completed [facility] TDAP 2020-05-20 00:00:00 Completed [facility] TDAP 2020-05-20 00:00:00 Completed [facility] TDAP 2020-05-20 00:00:00 Completed [facility] TDAP 2020-05-20 00:00:00 Completed [facility] TDAP 2020-05-20 00:00:00 Completed [facility] TDAP 2020-05-20 00:00:00 Completed [facility] TDAP 2020-05-20 00:00:00 Completed [facility] [place] TDAP 2020-05-20 00:00:00 Completed [facility] [place] TDAP 2020-05-20 00:00:00 Completed [facility] TDAP 2020-05-20 00:00:00 Completed [facility] [place] TDAP 2020-05-20 00:00:00 Completed [facility] [place] TDAP 2020-05-20 00:00:00 Completed [facility] [place] TDAP 2020-05-20 00:00:00 Completed [facility] [place] TDAP 2020-05-20 00:00:00 Completed [facility] TDAP 2020-05-20 00:00:00 Completed [facility] TDAP 2020-05-20 00:00:00 Completed [facility] TDAP 2020-05-20 00:00:00 Completed [facility] TDAP 2020-05-20 00:00:00 Completed [facility] TDAP 2020-05-20 00:00:00 Completed [facility] TDAP 2020-05-20 00:00:00 Completed [facility] [place] TDAP 2020-05-20 00:00:00 Completed [facility] TDAP 2020-05-20 00:00:00 Completed [facility] TDAP 2020-05-20 00:00:00 Completed [facility] TDAP 2020-05-20 00:00:00 Completed [facility] TDAP 2020-05-20 00:00:00 Completed [facility] TDAP 2020-05-20 00:00:00 Completed [facility] TDAP 2020-05-20 00:00:00 Completed [facility] TDAP 2020-05-20 00:00:00 Completed [facility] TDAP 2020-05-20 00:00:00 Completed [facility] TDAP 2020-05-20 00:00:00 Completed [facility] TDAP 2020-05-20 00:00:00 Completed [facility] TDAP 2020-05-20 00:00:00 Completed [facility] Influenza Virus Vaccine Quad .5 mL IM 6+ MO 2020-04-16 00:00:00 Completed [facility] Influenza Virus Vaccine Quad .5 mL IM 6+ MO 2020-04-16 00:00:00 Completed [facility] Influenza Virus Vaccine Quad .5 mL IM 6+ MO 2020-04-16 00:00:00 Completed [facility] Influenza Virus Vaccine Quad .5 mL IM 6+ MO 2020-04-16 00:00:00 Completed [facility] Influenza Virus Vaccine Quad .5 mL IM 6+ MO 2020-04-16 00:00:00 Completed [facility] Influenza Virus Vaccine Quad .5 mL IM 6+ MO 2020-04-16 00:00:00 Completed [facility] Influenza Virus Vaccine Quad .5 mL IM 6+ MO 2020-04-16 00:00:00 Completed [facility] Influenza Virus Vaccine Quad .5 mL IM 6+ MO 2020-04-16 00:00:00 Completed [facility] Influenza Virus Vaccine Quad .5 mL IM 6+ MO 2020-04-16 00:00:00 Completed [facility] Influenza Virus Vaccine Quad .5 mL IM 6+ MO 2020-04-16 00:00:00 Completed [facility] Influenza Virus Vaccine Quad .5 mL IM 6+ MO 2020-04-16 00:00:00 Completed [facility] Influenza Virus Vaccine Quad .5 mL IM 6+ MO 2020-04-16 00:00:00 Completed [facility] Influenza Virus Vaccine Quad .5 mL IM 6+ MO 2020-04-16 00:00:00 Completed [facility] Influenza Virus Vaccine Quad .5 mL IM 6+ MO 2020-04-16 00:00:00 Completed [facility] Influenza Virus Vaccine Quad .5 mL IM 6+ MO 2020-04-16 00:00:00 Completed [facility] Influenza Virus Vaccine Quad .5 mL IM 6+ MO 2020-04-16 00:00:00 Completed [facility] Influenza Virus Vaccine Quad .5 mL IM 6+ MO 2020-04-16 00:00:00 Completed [facility] Influenza Virus Vaccine Quad .5 mL IM 6+ MO 2020-04-16 00:00:00 Completed [facility] Influenza Virus Vaccine Quad .5 mL IM 6+ MO 2020-04-16 00:00:00 Completed [facility] Influenza Virus Vaccine Quad .5 mL IM 6+ MO 2020-04-16 00:00:00 Completed [facility] Influenza Virus Vaccine Quad .5 mL IM 6+ MO 2020-04-16 00:00:00 Completed [facility] Influenza Virus Vaccine Quad .5 mL IM 6+ MO 2020-04-16 00:00:00 Completed [facility] Influenza Virus Vaccine Quad .5 mL IM 6+ MO 2020-04-16 00:00:00 Completed [facility] Influenza Virus Vaccine Quad .5 mL IM 6+ MO 2020-04-16 00:00:00 Completed [facility] Influenza Virus Vaccine Quad .5 mL IM 6+ MO 2020-04-16 00:00:00 Completed [facility] Influenza Virus Vaccine Quad .5 mL IM 6+ MO 2020-04-16 00:00:00 Completed [facility] Influenza Virus Vaccine Quad .5 mL IM 6+ MO 2020-04-16 00:00:00 Completed [facility] Influenza Virus Vaccine Quad .5 mL IM 6+ MO 2020-04-16 00:00:00 Completed [facility] Influenza Virus Vaccine Quad .5 mL IM 6+ MO 2020-04-16 00:00:00 Completed [facility] Influenza Virus Vaccine Quad .5 mL IM 6+ MO 2020-04-16 00:00:00 Completed [facility] Influenza Virus Vaccine Quad .5 mL IM 6+ MO 2020-04-16 00:00:00 Completed [facility] Influenza Virus Vaccine Quad .5 mL IM 6+ MO 2020-04-16 00:00:00 Completed [facility] Influenza Virus Vaccine Quad .5 mL IM 6+ MO 2020-04-16 00:00:00 Completed [facility] TDAP 2018-03-23 00:00:00 Completed [facility] TDAP 2018-03-23 00:00:00 Completed [facility] TDAP 2018-03-23 00:00:00 Completed [facility] TDAP 2018-03-23 00:00:00 Completed [facility] TDAP 2018-03-23 00:00:00 Completed [facility] TDAP 2018-03-23 00:00:00 Completed [facility] TDAP 2018-03-23 00:00:00 Completed [facility] TDAP 2018-03-23 00:00:00 Completed [facility] TDAP 2018-03-23 00:00:00 Completed [facility] TDAP 2018-03-23 00:00:00 Completed [facility] TDAP 2018-03-23 00:00:00 Completed [facility] TDAP 2018-03-23 00:00:00 Completed [facility] TDAP 2018-03-23 00:00:00 Completed [facility] TDAP 2018-03-23 00:00:00 Completed [facility] TDAP 2018-03-23 00:00:00 Completed [facility] TDAP 2018-03-23 00:00:00 Completed [facility] TDAP 2018-03-23 00:00:00 Completed [facility] TDAP 2018-03-23 00:00:00 Completed [facility] TDAP 2018-03-23 00:00:00 Completed [facility] TDAP 2018-03-23 00:00:00 Completed [facility] TDAP 2018-03-23 00:00:00 Completed [facility] TDAP 2018-03-23 00:00:00 Completed [facility] TDAP 2018-03-23 00:00:00 Completed [facility] TDAP 2018-03-23 00:00:00 Completed [facility] TDAP 2018-03-23 00:00:00 Completed [facility] TDAP 2018-03-23 00:00:00 Completed [facility] TDAP 2018-03-23 00:00:00 Completed [facility] TDAP 2018-03-23 00:00:00 Completed [facility] TDAP 2018-03-23 00:00:00 Completed [facility] TDAP 2018-03-23 00:00:00 Completed [facility] TDAP 2018-03-23 00:00:00 Completed [facility] TDAP 2018-03-23 00:00:00 Completed [facility] TDAP 2018-03-23 00:00:00 Completed [facility] Influenza Virus Vaccine Quad IM 3+ YRS 2017-10-18 00:00:00 Completed [facility] Influenza Virus Vaccine Quad IM 3+ YRS 2017-10-18 00:00:00 Completed [facility] Influenza Virus Vaccine Quad IM 3+ YRS 2017-10-18 00:00:00 Completed [facility] Influenza Virus Vaccine Quad IM 3+ YRS 2017-10-18 00:00:00 Completed [facility] [facility] Influenza Virus Vaccine Quad IM 3+ YRS 2017-10-18 00:00:00 Completed [facility] Influenza Virus Vaccine Quad IM 3+ YRS 2017-10-18 00:00:00 Completed [facility] Influenza Virus Vaccine Quad IM 3+ YRS 2017-10-18 00:00:00 Completed [facility] Influenza Virus Vaccine Quad IM 3+ YRS 2017-10-18 00:00:00 Completed [facility] Influenza Virus Vaccine Quad IM 3+ YRS 2017-10-18 00:00:00 Completed [facility] Influenza Virus Vaccine Quad IM 3+ YRS 2017-10-18 00:00:00 Completed [facility] Influenza Virus Vaccine Quad IM 3+ YRS 2017-10-18 00:00:00 Completed [facility] Influenza Virus Vaccine Quad IM 3+ YRS 2017-10-18 00:00:00 Completed [facility] Influenza Virus Vaccine Quad IM 3+ YRS 2017-10-18 00:00:00 Completed [facility] Influenza Virus Vaccine Quad IM 3+ YRS 2017-10-18 00:00:00 Completed [facility] Influenza Virus Vaccine Quad IM 3+ YRS 2017-10-18 00:00:00 Completed [facility] Influenza Virus Vaccine Quad IM 3+ YRS 2017-10-18 00:00:00 Completed [facility] Influenza Virus Vaccine Quad IM 3+ YRS 2017-10-18 00:00:00 Completed [facility] Influenza Virus Vaccine Quad IM 3+ YRS 2017-10-18 00:00:00 Completed [facility] Influenza Virus Vaccine Quad IM 3+ YRS 2017-10-18 00:00:00 Completed [facility] Influenza Virus Vaccine Quad IM 3+ YRS 2017-10-18 00:00:00 Completed [facility] Influenza Virus Vaccine Quad IM 3+ YRS 2017-10-18 00:00:00 Completed [facility] Influenza Virus Vaccine Quad IM 3+ YRS 2017-10-18 00:00:00 Completed [facility] Influenza Virus Vaccine Quad IM 3+ YRS 2017-10-18 00:00:00 Completed [facility] Influenza Virus Vaccine Quad IM 3+ YRS 2017-10-18 00:00:00 Completed [facility] Influenza Virus Vaccine Quad IM 3+ YRS 2017-10-18 00:00:00 Completed [facility] Influenza Virus Vaccine Quad IM 3+ YRS 2017-10-18 00:00:00 Completed [facility] Influenza Virus Vaccine Quad IM 3+ YRS 2017-10-18 00:00:00 Completed [facility] Influenza Virus Vaccine Quad IM 3+ YRS 2017-10-18 00:00:00 Completed [facility] Influenza Virus Vaccine Quad IM 3+ YRS 2017-10-18 00:00:00 Completed [facility] Influenza Virus Vaccine Quad IM 3+ YRS 2017-10-18 00:00:00 Completed [facility] Influenza Virus Vaccine Quad IM 3+ YRS 2017-10-18 00:00:00 Completed [facility] Influenza Virus Vaccine Quad IM 3+ YRS 2017-10-18 00:00:00 Completed [facility] Influenza Virus Vaccine Quad IM 3+ YRS 2017-10-18 00:00:00 Completed [facility] Influenza Virus Vaccine - Whole 2017-05-04 00:00:00 Completed [facility] Influenza Virus Vaccine - Whole 2017-05-04 00:00:00 Completed [facility] Influenza Virus Vaccine - Whole 2017-05-04 00:00:00 Completed [facility] Influenza Virus Vaccine - Whole 2017-05-04 00:00:00 Completed [facility] Influenza Virus Vaccine - Whole 2017-05-04 00:00:00 Completed [facility] Influenza Virus Vaccine - Whole 2017-05-04 00:00:00 Completed [facility] Influenza Virus Vaccine - Whole 2017-05-04 00:00:00 Completed [facility] Influenza Virus Vaccine - Whole 2017-05-04 00:00:00 Completed [facility] Influenza Virus Vaccine - Whole 2017-05-04 00:00:00 Completed [facility] Influenza Virus Vaccine - Whole 2017-05-04 00:00:00 Completed [facility] Influenza Virus Vaccine - Whole 2017-05-04 00:00:00 Completed [facility] Influenza Virus Vaccine - Whole 2017-05-04 00:00:00 Completed [facility] Influenza Virus Vaccine - Whole 2017-05-04 00:00:00 Completed [facility] Influenza Virus Vaccine - Whole 2017-05-04 00:00:00 Completed [facility] Influenza Virus Vaccine - Whole 2017-05-04 00:00:00 Completed [facility] Influenza Virus Vaccine - Whole 2017-05-04 00:00:00 Completed [facility] Influenza Virus Vaccine - Whole 2017-05-04 00:00:00 Completed [facility] Influenza Virus Vaccine - Whole 2017-05-04 00:00:00 Completed [facility] Influenza Virus Vaccine - Whole 2017-05-04 00:00:00 Completed [facility] Influenza Virus Vaccine - Whole 2017-05-04 00:00:00 Completed [facility] Influenza Virus Vaccine - Whole 2017-05-04 00:00:00 Completed [facility] Influenza Virus Vaccine Quad .5 mL IM 6+ MO 2016-08-10 00:00:00 Completed [facility] Influenza Virus Vaccine Quad .5 mL IM 6+ MO 2016-08-10 00:00:00 Completed [facility] Influenza Virus Vaccine Quad .5 mL IM 6+ MO 2016-08-10 00:00:00 Completed [facility] Influenza Virus Vaccine Quad .5 mL IM 6+ MO 2016-08-10 00:00:00 Completed [facility] Influenza Virus Vaccine Quad .5 mL IM 6+ MO 2016-08-10 00:00:00 Completed [facility] Influenza Virus Vaccine Quad .5 mL IM 6+ MO 2016-08-10 00:00:00 Completed [facility] Influenza Virus Vaccine Quad .5 mL IM 6+ MO 2016-08-10 00:00:00 Completed [facility] Influenza Virus Vaccine Quad .5 mL IM 6+ MO 2016-08-10 00:00:00 Completed [facility] Influenza Virus Vaccine Quad .5 mL IM 6+ MO 2016-08-10 00:00:00 Completed [facility] Influenza Virus Vaccine Quad .5 mL IM 6+ MO 2016-08-10 00:00:00 Completed [facility] Influenza Virus Vaccine Quad .5 mL IM 6+ MO 2016-08-10 00:00:00 Completed [facility] Influenza Virus Vaccine Quad .5 mL IM 6+ MO 2016-08-10 00:00:00 Completed [facility] Influenza Virus Vaccine Quad .5 mL IM 6+ MO 2016-08-10 00:00:00 Completed [facility] Influenza Virus Vaccine Quad .5 mL IM 6+ MO 2016-08-10 00:00:00 Completed [facility] Influenza Virus Vaccine Quad .5 mL IM 6+ MO 2016-08-10 00:00:00 Completed [facility] Influenza Virus Vaccine Quad .5 mL IM 6+ MO 2016-08-10 00:00:00 Completed [facility] Influenza Virus Vaccine Quad .5 mL IM 6+ MO 2016-08-10 00:00:00 Completed [facility] Influenza Virus Vaccine Quad .5 mL IM 6+ MO 2016-08-10 00:00:00 Completed [facility] Influenza Virus Vaccine Quad .5 mL IM 6+ MO 2016-08-10 00:00:00 Completed [facility] Influenza Virus Vaccine Quad .5 mL IM 6+ MO 2016-08-10 00:00:00 Completed [facility] Influenza Virus Vaccine Quad .5 mL IM 6+ MO 2016-08-10 00:00:00 Completed [facility] HEPATITIS A 2012-01-28 00:00:00 Completed [facility] HEPATITIS A 2012-01-28 00:00:00 Completed [facility] HEPATITIS A 2012-01-28 00:00:00 Completed [facility] HEPATITIS A 2012-01-28 00:00:00 Completed [facility] HEPATITIS A 2012-01-28 00:00:00 Completed [facility] HEPATITIS A 2012-01-28 00:00:00 Completed [facility] HEPATITIS A 2012-01-28 00:00:00 Completed [facility] HEPATITIS A 2012-01-28 00:00:00 Completed [facility] HEPATITIS A 2012-01-28 00:00:00 Completed [facility] HEPATITIS A 2012-01-28 00:00:00 Completed [facility] HEPATITIS A 2012-01-28 00:00:00 Completed [facility] HEPATITIS A 2012-01-28 00:00:00 Completed [facility] HEPATITIS A 2012-01-28 00:00:00 Completed [facility] HEPATITIS A 2012-01-28 00:00:00 Completed [facility] HEPATITIS A 2012-01-28 00:00:00 Completed [facility] HEPATITIS A 2012-01-28 00:00:00 Completed [facility] HEPATITIS A 2012-01-28 00:00:00 Completed [facility] HEPATITIS A 2012-01-28 00:00:00 Completed [facility] HEPATITIS A 2012-01-28 00:00:00 Completed [facility] HEPATITIS A 2012-01-28 00:00:00 Completed [facility] HEPATITIS A 2012-01-28 00:00:00 Completed [facility] HEPATITIS A 2010-10-06 00:00:00 Completed [facility] Meningococcal Polysaccharide (groups A, C, Y and W-135) conjugate vaccine (MCV4P) 2010-10-06 00:00:00 Completed [facility] TDAP 2010-10-06 00:00:00 Completed [facility] HEPATITIS A 2010-10-06 00:00:00 Completed [facility] Meningococcal Polysaccharide (groups A, C, Y and W-135) conjugate vaccine (MCV4P) 2010-10-06 00:00:00 Completed [facility] TDAP 2010-10-06 00:00:00 Completed [facility] HEPATITIS A 2010-10-06 00:00:00 Completed [facility] Meningococcal Polysaccharide (groups A, C, Y and W-135) conjugate vaccine (MCV4P) 2010-10-06 00:00:00 Completed [facility] TDAP 2010-10-06 00:00:00 Completed [facility] HEPATITIS A 2010-10-06 00:00:00 Completed [facility] Meningococcal Polysaccharide (groups A, C, Y and W-135) conjugate vaccine (MCV4P) 2010-10-06 00:00:00 Completed [facility] TDAP 2010-10-06 00:00:00 Completed [facility] HEPATITIS A 2010-10-06 00:00:00 Completed [facility] Meningococcal Polysaccharide (groups A, C, Y and W-135) conjugate vaccine (MCV4P) 2010-10-06 00:00:00 Completed [facility] TDAP 2010-10-06 00:00:00 Completed [facility] HEPATITIS A 2010-10-06 00:00:00 Completed [facility] Meningococcal Polysaccharide (groups A, C, Y and W-135) conjugate vaccine (MCV4P) 2010-10-06 00:00:00 Completed [facility] TDAP 2010-10-06 00:00:00 Completed [facility] HEPATITIS A 2010-10-06 00:00:00 Completed [facility] Meningococcal Polysaccharide (groups A, C, Y and W-135) conjugate vaccine (MCV4P) 2010-10-06 00:00:00 Completed [facility] TDAP 2010-10-06 00:00:00 Completed [facility] HEPATITIS A 2010-10-06 00:00:00 Completed [facility] Meningococcal Polysaccharide (groups A, C, Y and W-135) conjugate vaccine (MCV4P) 2010-10-06 00:00:00 Completed [facility] TDAP 2010-10-06 00:00:00 Completed [facility] HEPATITIS A 2010-10-06 00:00:00 Completed [facility] Meningococcal Polysaccharide (groups A, C, Y and W-135) conjugate vaccine (MCV4P) 2010-10-06 00:00:00 Completed [facility] TDAP 2010-10-06 00:00:00 Completed [facility] HEPATITIS A 2010-10-06 00:00:00 Completed [facility] Meningococcal Polysaccharide (groups A, C, Y and W-135) conjugate vaccine (MCV4P) 2010-10-06 00:00:00 Completed [facility] TDAP 2010-10-06 00:00:00 Completed [facility] HEPATITIS A 2010-10-06 00:00:00 Completed [facility] Meningococcal Polysaccharide (groups A, C, Y and W-135) conjugate vaccine (MCV4P) 2010-10-06 00:00:00 Completed [facility] TDAP 2010-10-06 00:00:00 Completed [facility] HEPATITIS A 2010-10-06 00:00:00 Completed [facility] Meningococcal Polysaccharide (groups A, C, Y and W-135) conjugate vaccine (MCV4P) 2010-10-06 00:00:00 Completed [facility] TDAP 2010-10-06 00:00:00 Completed [facility] HEPATITIS A 2010-10-06 00:00:00 Completed [facility] Meningococcal Polysaccharide (groups A, C, Y and W-135) conjugate vaccine (MCV4P) 2010-10-06 00:00:00 Completed [facility] TDAP 2010-10-06 00:00:00 Completed [facility] HEPATITIS A 2010-10-06 00:00:00 Completed [facility] Meningococcal Polysaccharide (groups A, C, Y and W-135) conjugate vaccine (MCV4P) 2010-10-06 00:00:00 Completed [facility] TDAP 2010-10-06 00:00:00 Completed [facility] HEPATITIS A 2010-10-06 00:00:00 Completed [facility] Meningococcal Polysaccharide (groups A, C, Y and W-135) conjugate vaccine (MCV4P) 2010-10-06 00:00:00 Completed [facility] TDAP 2010-10-06 00:00:00 Completed [facility] HEPATITIS A 2010-10-06 00:00:00 Completed [facility] Meningococcal Polysaccharide (groups A, C, Y and W-135) conjugate vaccine (MCV4P) 2010-10-06 00:00:00 Completed [facility] TDAP 2010-10-06 00:00:00 Completed [facility] HEPATITIS A 2010-10-06 00:00:00 Completed [facility] Meningococcal Polysaccharide (groups A, C, Y and W-135) conjugate vaccine (MCV4P) 2010-10-06 00:00:00 Completed [facility] TDAP 2010-10-06 00:00:00 Completed [facility] HEPATITIS A 2010-10-06 00:00:00 Completed [facility] Meningococcal Polysaccharide (groups A, C, Y and W-135) conjugate vaccine (MCV4P) 2010-10-06 00:00:00 Completed [facility] TDAP 2010-10-06 00:00:00 Completed [facility] HEPATITIS A 2010-10-06 00:00:00 Completed [facility] Meningococcal Polysaccharide (groups A, C, Y and W-135) conjugate vaccine (MCV4P) 2010-10-06 00:00:00 Completed [facility] TDAP 2010-10-06 00:00:00 Completed [facility] HEPATITIS A 2010-10-06 00:00:00 Completed [facility] Meningococcal Polysaccharide (groups A, C, Y and W-135) conjugate vaccine (MCV4P) 2010-10-06 00:00:00 Completed [facility] TDAP 2010-10-06 00:00:00 Completed [facility] HEPATITIS A 2010-10-06 00:00:00 Completed [facility] Meningococcal Polysaccharide (groups A, C, Y and W-135) conjugate vaccine (MCV4P) 2010-10-06 00:00:00 Completed [facility] TDAP 2010-10-06 00:00:00 Completed [facility] HEPATITIS A 2009-09-03 00:00:00 Completed [facility] HEPATITIS A 2009-09-03 00:00:00 Completed [facility] HEPATITIS A 2009-09-03 00:00:00 Completed [facility] HEPATITIS A 2009-09-03 00:00:00 Completed [facility] HEPATITIS A 2009-09-03 00:00:00 Completed [facility] HEPATITIS A 2009-09-03 00:00:00 Completed [facility] HEPATITIS A 2009-09-03 00:00:00 Completed [facility] HEPATITIS A 2009-09-03 00:00:00 Completed [facility] HEPATITIS A 2009-09-03 00:00:00 Completed [facility] HEPATITIS A 2009-09-03 00:00:00 Completed [facility] HEPATITIS A 2009-09-03 00:00:00 Completed [facility] HEPATITIS A 2009-09-03 00:00:00 Completed [facility] HEPATITIS A 2009-09-03 00:00:00 Completed [facility] HEPATITIS A 2009-09-03 00:00:00 Completed [facility] HEPATITIS A 2009-09-03 00:00:00 Completed [facility] HEPATITIS A 2009-09-03 00:00:00 Completed [facility] HEPATITIS A 2009-09-03 00:00:00 Completed [facility] HEPATITIS A 2009-09-03 00:00:00 Completed [facility] HEPATITIS A 2009-09-03 00:00:00 Completed [facility] HEPATITIS A 2009-09-03 00:00:00 Completed [facility] HEPATITIS A 2009-09-03 00:00:00 Completed [facility] HEPATITIS A 2009-09-03 00:00:00 Completed [facility] HEPATITIS A 2009-09-03 00:00:00 Completed [facility] HEPATITIS A 2009-09-03 00:00:00 Completed [facility] HEPATITIS A 2009-09-03 00:00:00 Completed [facility] HEPATITIS A 2009-09-03 00:00:00 Completed [facility] HEPATITIS A 2009-09-03 00:00:00 Completed [facility] HEPATITIS A 2009-09-03 00:00:00 Completed [facility] HEPATITIS A 2009-09-03 00:00:00 Completed [facility] HEPATITIS A 2009-09-03 00:00:00 Completed [facility] HEPATITIS A 2009-09-03 00:00:00 Completed [facility] HEPATITIS A 2009-09-03 00:00:00 Completed [facility] HEPATITIS A 2009-09-03 00:00:00 Completed [facility] Pneumococcal 7 Conjugate, PCV7 (Prevnar7) 2005-10-11 00:00:00 Completed [facility] Varicella (varivax)(chicken pox) 2005-10-11 00:00:00 Completed [facility] Pneumococcal 7 Conjugate, PCV7 (Prevnar7) 2005-10-11 00:00:00 Completed [facility] Varicella (varivax)(chicken pox) 2005-10-11 00:00:00 Completed [facility] Pneumococcal 7 Conjugate, PCV7 (Prevnar7) 2005-10-11 00:00:00 Completed [facility] Varicella (varivax)(chicken pox) 2005-10-11 00:00:00 Completed [facility] Pneumococcal 7 Conjugate, PCV7 (Prevnar7) 2005-10-11 00:00:00 Completed [facility] Varicella (varivax)(chicken pox) 2005-10-11 00:00:00 Completed [facility] Pneumococcal 7 Conjugate, PCV7 (Prevnar7) 2005-10-11 00:00:00 Completed [facility] Varicella (varivax)(chicken pox) 2005-10-11 00:00:00 Completed [facility] Pneumococcal 7 Conjugate, PCV7 (Prevnar7) 2005-10-11 00:00:00 Completed [facility] Varicella (varivax)(chicken pox) 2005-10-11 00:00:00 Completed [facility] Pneumococcal 7 Conjugate, PCV7 (Prevnar7) 2005-10-11 00:00:00 Completed [facility] Varicella (varivax)(chicken pox) 2005-10-11 00:00:00 Completed [facility] Pneumococcal 7 Conjugate, PCV7 (Prevnar7) 2005-10-11 00:00:00 Completed [facility] Varicella (varivax)(chicken pox) 2005-10-11 00:00:00 Completed [facility] Pneumococcal 7 Conjugate, PCV7 (Prevnar7) 2005-10-11 00:00:00 Completed [facility] Varicella (varivax)(chicken pox) 2005-10-11 00:00:00 Completed [facility] Pneumococcal 7 Conjugate, PCV7 (Prevnar7) 2005-10-11 00:00:00 Completed [facility] Varicella (varivax)(chicken pox) 2005-10-11 00:00:00 Completed [facility] Pneumococcal 7 Conjugate, PCV7 (Prevnar7) 2005-10-11 00:00:00 Completed [facility] Varicella (varivax)(chicken pox) 2005-10-11 00:00:00 Completed [facility] Pneumococcal 7 Conjugate, PCV7 (Prevnar7) 2005-10-11 00:00:00 Completed [facility] Varicella (varivax)(chicken pox) 2005-10-11 00:00:00 Completed [facility] Pneumococcal 7 Conjugate, PCV7 (Prevnar7) 2005-10-11 00:00:00 Completed [facility] Varicella (varivax)(chicken pox) 2005-10-11 00:00:00 Completed [facility] Pneumococcal 7 Conjugate, PCV7 (Prevnar7) 2005-10-11 00:00:00 Completed [facility] Varicella (varivax)(chicken pox) 2005-10-11 00:00:00 Completed [facility] Pneumococcal 7 Conjugate, PCV7 (Prevnar7) 2005-10-11 00:00:00 Completed [facility] Varicella (varivax)(chicken pox) 2005-10-11 00:00:00 Completed [facility] Pneumococcal 7 Conjugate, PCV7 (Prevnar7) 2005-10-11 00:00:00 Completed [facility] Varicella (varivax)(chicken pox) 2005-10-11 00:00:00 Completed [facility] Pneumococcal 7 Conjugate, PCV7 (Prevnar7) 2005-10-11 00:00:00 Completed [facility] Varicella (varivax)(chicken pox) 2005-10-11 00:00:00 Completed [facility] Pneumococcal 7 Conjugate, PCV7 (Prevnar7) 2005-10-11 00:00:00 Completed [facility] Varicella (varivax)(chicken pox) 2005-10-11 00:00:00 Completed [facility] Pneumococcal 7 Conjugate, PCV7 (Prevnar7) 2005-10-11 00:00:00 Completed [facility] Varicella (varivax)(chicken pox) 2005-10-11 00:00:00 Completed [facility] Pneumococcal 7 Conjugate, PCV7 (Prevnar7) 2005-10-11 00:00:00 Completed [facility] Varicella (varivax)(chicken pox) 2005-10-11 00:00:00 Completed [facility] Pneumococcal 7 Conjugate, PCV7 (Prevnar7) 2005-10-11 00:00:00 Completed [facility] Varicella (varivax)(chicken pox) 2005-10-11 00:00:00 Completed [facility] Pneumococcal 7 Conjugate, PCV7 (Prevnar7) 2005-10-11 00:00:00 Completed [facility] Varicella (varivax)(chicken pox) 2005-10-11 00:00:00 Completed [facility] Pneumococcal 7 Conjugate, PCV7 (Prevnar7) 2005-10-11 00:00:00 Completed [facility] Varicella (varivax)(chicken pox) 2005-10-11 00:00:00 Completed [facility] Pneumococcal 7 Conjugate, PCV7 (Prevnar7) 2005-10-11 00:00:00 Completed [facility] Varicella (varivax)(chicken pox) 2005-10-11 00:00:00 Completed [facility] Pneumococcal 7 Conjugate, PCV7 (Prevnar7) 2005-10-11 00:00:00 Completed [facility] Varicella (varivax)(chicken pox) 2005-10-11 00:00:00 Completed [facility] Pneumococcal 7 Conjugate, PCV7 (Prevnar7) 2005-10-11 00:00:00 Completed [facility] Varicella (varivax)(chicken pox) 2005-10-11 00:00:00 Completed [facility] Pneumococcal 7 Conjugate, PCV7 (Prevnar7) 2005-10-11 00:00:00 Completed [facility] Varicella (varivax)(chicken pox) 2005-10-11 00:00:00 Completed [facility] Pneumococcal 7 Conjugate, PCV7 (Prevnar7) 2005-10-11 00:00:00 Completed [facility] Varicella (varivax)(chicken pox) 2005-10-11 00:00:00 Completed [facility] Pneumococcal 7 Conjugate, PCV7 (Prevnar7) 2005-10-11 00:00:00 Completed [facility] Varicella (varivax)(chicken pox) 2005-10-11 00:00:00 Completed [facility] Pneumococcal 7 Conjugate, PCV7 (Prevnar7) 2005-10-11 00:00:00 Completed [facility] Varicella (varivax)(chicken pox) 2005-10-11 00:00:00 Completed [facility] Pneumococcal 7 Conjugate, PCV7 (Prevnar7) 2005-10-11 00:00:00 Completed [facility] Varicella (varivax)(chicken pox) 2005-10-11 00:00:00 Completed [facility] Pneumococcal 7 Conjugate, PCV7 (Prevnar7) 2005-10-11 00:00:00 Completed [facility] Varicella (varivax)(chicken pox) 2005-10-11 00:00:00 Completed [facility] Pneumococcal 7 Conjugate, PCV7 (Prevnar7) 2005-10-11 00:00:00 Completed [facility] Varicella (varivax)(chicken pox) 2005-10-11 00:00:00 Completed [facility] DTaP, Unspecified Formulation 2004-06-17 00:00:00 Completed [facility] IPV 2004-06-17 00:00:00 Completed [facility] Varicella (varivax)(chicken pox) 2004-06-17 00:00:00 Completed [facility] MMR 2004-06-17 00:00:00 Completed [facility] Polio (IPV/OPV) 2004-06-17 00:00:00 Completed [facility] DTaP, Unspecified Formulation 2004-06-17 00:00:00 Completed [facility] IPV 2004-06-17 00:00:00 Completed [facility] Varicella (varivax)(chicken pox) 2004-06-17 00:00:00 Completed [facility] MMR 2004-06-17 00:00:00 Completed [facility] Polio (IPV/OPV) 2004-06-17 00:00:00 Completed [facility] DTaP, Unspecified Formulation 2004-06-17 00:00:00 Completed [facility] IPV 2004-06-17 00:00:00 Completed [facility] Varicella (varivax)(chicken pox) 2004-06-17 00:00:00 Completed [facility] MMR 2004-06-17 00:00:00 Completed [facility] Polio (IPV/OPV) 2004-06-17 00:00:00 Completed [facility] DTaP, Unspecified Formulation 2004-06-17 00:00:00 Completed [facility] IPV 2004-06-17 00:00:00 Completed [facility] Varicella (varivax)(chicken pox) 2004-06-17 00:00:00 Completed [facility] MMR 2004-06-17 00:00:00 Completed [facility] Polio (IPV/OPV) 2004-06-17 00:00:00 Completed [facility] DTaP, Unspecified Formulation 2004-06-17 00:00:00 Completed [facility] IPV 2004-06-17 00:00:00 Completed [facility] Varicella (varivax)(chicken pox) 2004-06-17 00:00:00 Completed [facility] MMR 2004-06-17 00:00:00 Completed [facility] Polio (IPV/OPV) 2004-06-17 00:00:00 Completed [facility] DTaP, Unspecified Formulation 2004-06-17 00:00:00 Completed [facility] IPV 2004-06-17 00:00:00 Completed [facility] Varicella (varivax)(chicken pox) 2004-06-17 00:00:00 Completed [facility] MMR 2004-06-17 00:00:00 Completed [facility] Polio (IPV/OPV) 2004-06-17 00:00:00 Completed [facility] DTaP, Unspecified Formulation 2004-06-17 00:00:00 Completed [facility] IPV 2004-06-17 00:00:00 Completed [facility] Varicella (varivax)(chicken pox) 2004-06-17 00:00:00 Completed [facility] MMR 2004-06-17 00:00:00 Completed [facility] Polio (IPV/OPV) 2004-06-17 00:00:00 Completed [facility] DTaP, Unspecified Formulation 2004-06-17 00:00:00 Completed [facility] IPV 2004-06-17 00:00:00 Completed [facility] Varicella (varivax)(chicken pox) 2004-06-17 00:00:00 Completed [facility] MMR 2004-06-17 00:00:00 Completed [facility] Polio (IPV/OPV) 2004-06-17 00:00:00 Completed [facility] DTaP, Unspecified Formulation 2004-06-17 00:00:00 Completed [facility] IPV 2004-06-17 00:00:00 Completed [facility] Varicella (varivax)(chicken pox) 2004-06-17 00:00:00 Completed [facility] MMR 2004-06-17 00:00:00 Completed [facility] Polio (IPV/OPV) 2004-06-17 00:00:00 Completed [facility] DTaP, Unspecified Formulation 2004-06-17 00:00:00 Completed [facility] IPV 2004-06-17 00:00:00 Completed [facility] Varicella (varivax)(chicken pox) 2004-06-17 00:00:00 Completed [facility] MMR 2004-06-17 00:00:00 Completed [facility] Polio (IPV/OPV) 2004-06-17 00:00:00 Completed [facility] DTaP, Unspecified Formulation 2004-06-17 00:00:00 Completed [facility] IPV 2004-06-17 00:00:00 Completed [facility] Varicella (varivax)(chicken pox) 2004-06-17 00:00:00 Completed [facility] DTAP 2004-06-17 00:00:00 Completed [facility] MMR 2004-06-17 00:00:00 Completed [facility] Polio (IPV/OPV) 2004-06-17 00:00:00 Completed [facility] DTAP 2004-06-17 00:00:00 Completed [facility] MMR 2004-06-17 00:00:00 Completed [facility] Polio (IPV/OPV) 2004-06-17 00:00:00 Completed [facility] DTAP 2004-06-17 00:00:00 Completed [facility] MMR 2004-06-17 00:00:00 Completed [facility] Polio (IPV/OPV) 2004-06-17 00:00:00 Completed [facility] DTAP 2004-06-17 00:00:00 Completed [facility] MMR 2004-06-17 00:00:00 Completed [facility] Polio (IPV/OPV) 2004-06-17 00:00:00 Completed [facility] DTAP 2004-06-17 00:00:00 Completed [facility] MMR 2004-06-17 00:00:00 Completed [facility] Polio (IPV/OPV) 2004-06-17 00:00:00 Completed [facility] DTAP 2004-06-17 00:00:00 Completed [facility] MMR 2004-06-17 00:00:00 Completed [facility] Polio (IPV/OPV) 2004-06-17 00:00:00 Completed [facility] DTAP 2004-06-17 00:00:00 Completed [facility] MMR 2004-06-17 00:00:00 Completed [facility] Polio (IPV/OPV) 2004-06-17 00:00:00 Completed [facility] DTAP 2004-06-17 00:00:00 Completed [facility] MMR 2004-06-17 00:00:00 Completed [facility] Polio (IPV/OPV) 2004-06-17 00:00:00 Completed [facility] DTAP 2004-06-17 00:00:00 Completed [facility] MMR 2004-06-17 00:00:00 Completed [facility] Polio (IPV/OPV) 2004-06-17 00:00:00 Completed [facility] DTAP 2004-06-17 00:00:00 Completed [facility] MMR 2004-06-17 00:00:00 Completed [facility] Polio (IPV/OPV) 2004-06-17 00:00:00 Completed [facility] DTAP 2004-06-17 00:00:00 Completed [facility] MMR 2004-06-17 00:00:00 Completed [facility] Polio (IPV/OPV) 2004-06-17 00:00:00 Completed [facility] DTAP 2004-06-17 00:00:00 Completed [facility] MMR 2004-06-17 00:00:00 Completed [facility] Polio (IPV/OPV) 2004-06-17 00:00:00 Completed [facility] MMR 2004-06-17 00:00:00 Completed [facility] Polio (IPV/OPV) 2004-06-17 00:00:00 Completed [facility] DTaP, Unspecified Formulation 2004-06-17 00:00:00 Completed [facility] IPV 2004-06-17 00:00:00 Completed [facility] Varicella (varivax)(chicken pox) 2004-06-17 00:00:00 Completed [facility] MMR 2004-06-17 00:00:00 Completed [facility] Polio (IPV/OPV) 2004-06-17 00:00:00 Completed [facility] DTaP, Unspecified Formulation 2004-06-17 00:00:00 Completed [facility] IPV 2004-06-17 00:00:00 Completed [facility] Varicella (varivax)(chicken pox) 2004-06-17 00:00:00 Completed [facility] MMR 2004-06-17 00:00:00 Completed [facility] Polio (IPV/OPV) 2004-06-17 00:00:00 Completed [facility] DTaP, Unspecified Formulation 2004-06-17 00:00:00 Completed [facility] IPV 2004-06-17 00:00:00 Completed [facility] Varicella (varivax)(chicken pox) 2004-06-17 00:00:00 Completed [facility] MMR 2004-06-17 00:00:00 Completed [facility] Polio (IPV/OPV) 2004-06-17 00:00:00 Completed [facility] DTaP, Unspecified Formulation 2004-06-17 00:00:00 Completed [facility] IPV 2004-06-17 00:00:00 Completed [facility] Varicella (varivax)(chicken pox) 2004-06-17 00:00:00 Completed [facility] MMR 2004-06-17 00:00:00 Completed [facility] Polio (IPV/OPV) 2004-06-17 00:00:00 Completed [facility] DTaP, Unspecified Formulation 2004-06-17 00:00:00 Completed [facility] IPV 2004-06-17 00:00:00 Completed [facility] Varicella (varivax)(chicken pox) 2004-06-17 00:00:00 Completed [facility] MMR 2004-06-17 00:00:00 Completed [facility] Polio (IPV/OPV) 2004-06-17 00:00:00 Completed [facility] DTaP, Unspecified Formulation 2004-06-17 00:00:00 Completed [facility] IPV 2004-06-17 00:00:00 Completed [facility] Varicella (varivax)(chicken pox) 2004-06-17 00:00:00 Completed [facility] MMR 2004-06-17 00:00:00 Completed [facility] Polio (IPV/OPV) 2004-06-17 00:00:00 Completed [facility] DTaP, Unspecified Formulation 2004-06-17 00:00:00 Completed [facility] IPV 2004-06-17 00:00:00 Completed [facility] Varicella (varivax)(chicken pox) 2004-06-17 00:00:00 Completed [facility] MMR 2004-06-17 00:00:00 Completed [facility] Polio (IPV/OPV) 2004-06-17 00:00:00 Completed [facility] DTaP, Unspecified Formulation 2004-06-17 00:00:00 Completed [facility] IPV 2004-06-17 00:00:00 Completed [facility] Varicella (varivax)(chicken pox) 2004-06-17 00:00:00 Completed [facility] MMR 2004-06-17 00:00:00 Completed [facility] Polio (IPV/OPV) 2004-06-17 00:00:00 Completed [facility] DTaP, Unspecified Formulation 2004-06-17 00:00:00 Completed [facility] IPV 2004-06-17 00:00:00 Completed [facility] Varicella (varivax)(chicken pox) 2004-06-17 00:00:00 Completed [facility] MMR 2004-06-17 00:00:00 Completed [facility] Polio (IPV/OPV) 2004-06-17 00:00:00 Completed [facility] DTaP, Unspecified Formulation 2004-06-17 00:00:00 Completed [facility] IPV 2004-06-17 00:00:00 Completed [facility] Varicella (varivax)(chicken pox) 2004-06-17 00:00:00 Completed [facility] MMR 2004-06-17 00:00:00 Completed [facility] Polio (IPV/OPV) 2004-06-17 00:00:00 Completed [facility] DTAP 2001-09-11 00:00:00 Completed [facility] DTAP 2001-09-11 00:00:00 Completed [facility] DTAP 2001-09-11 00:00:00 Completed [facility] DTAP 2001-09-11 00:00:00 Completed [facility] DTAP 2001-09-11 00:00:00 Completed [facility] DTAP 2001-09-11 00:00:00 Completed [facility] DTAP 2001-09-11 00:00:00 Completed [facility] DTAP 2001-09-11 00:00:00 Completed [facility] DTAP 2001-09-11 00:00:00 Completed [facility] DTAP 2001-09-11 00:00:00 Completed [facility] DTAP 2001-09-11 00:00:00 Completed [facility] DTAP 2001-09-11 00:00:00 Completed [facility] DTaP, Unspecified Formulation 2001-09-11 00:00:00 Completed [facility] DTaP, Unspecified Formulation 2001-09-11 00:00:00 Completed [facility] DTaP, Unspecified Formulation 2001-09-11 00:00:00 Completed [facility] DTaP, Unspecified Formulation 2001-09-11 00:00:00 Completed [facility] DTaP, Unspecified Formulation 2001-09-11 00:00:00 Completed [facility] DTaP, Unspecified Formulation 2001-09-11 00:00:00 Completed [facility] DTaP, Unspecified Formulation 2001-09-11 00:00:00 Completed [facility] DTaP, Unspecified Formulation 2001-09-11 00:00:00 Completed [facility] DTaP, Unspecified Formulation 2001-09-11 00:00:00 Completed [facility] DTaP, Unspecified Formulation 2001-09-11 00:00:00 Completed [facility] DTaP, Unspecified Formulation 2001-09-11 00:00:00 Completed [facility] DTaP, Unspecified Formulation 2001-09-11 00:00:00 Completed [facility] DTaP, Unspecified Formulation 2001-09-11 00:00:00 Completed [facility] DTaP, Unspecified Formulation 2001-09-11 00:00:00 Completed [facility] DTaP, Unspecified Formulation 2001-09-11 00:00:00 Completed [facility] DTaP, Unspecified Formulation 2001-09-11 00:00:00 Completed [facility] DTaP, Unspecified Formulation 2001-09-11 00:00:00 Completed [facility] DTaP, Unspecified Formulation 2001-09-11 00:00:00 Completed [facility] DTaP, Unspecified Formulation 2001-09-11 00:00:00 Completed [facility] DTaP, Unspecified Formulation 2001-09-11 00:00:00 Completed [facility] DTaP, Unspecified Formulation 2001-09-11 00:00:00 Completed [facility] HIB 4 Dose Schedule 2001-06-19 00:00:00 Completed [facility] MMR 2001-06-19 00:00:00 Completed [facility] Varicella (varivax)(chicken pox) 2001-06-19 00:00:00 Completed [facility] HIB 4 Dose Schedule 2001-06-19 00:00:00 Completed [facility] MMR 2001-06-19 00:00:00 Completed [facility] Varicella (varivax)(chicken pox) 2001-06-19 00:00:00 Completed [facility] HIB 4 Dose Schedule 2001-06-19 00:00:00 Completed [facility] MMR 2001-06-19 00:00:00 Completed [facility] Varicella (varivax)(chicken pox) 2001-06-19 00:00:00 Completed [facility] HIB 4 Dose Schedule 2001-06-19 00:00:00 Completed [facility] MMR 2001-06-19 00:00:00 Completed [facility] Varicella (varivax)(chicken pox) 2001-06-19 00:00:00 Completed [facility] HIB 4 Dose Schedule 2001-06-19 00:00:00 Completed [facility] MMR 2001-06-19 00:00:00 Completed [facility] Varicella (varivax)(chicken pox) 2001-06-19 00:00:00 Completed [facility] HIB 4 Dose Schedule 2001-06-19 00:00:00 Completed [facility] MMR 2001-06-19 00:00:00 Completed [facility] Varicella (varivax)(chicken pox) 2001-06-19 00:00:00 Completed [facility] HIB 4 Dose Schedule 2001-06-19 00:00:00 Completed [facility] MMR 2001-06-19 00:00:00 Completed [facility] Varicella (varivax)(chicken pox) 2001-06-19 00:00:00 Completed [facility] HIB 4 Dose Schedule 2001-06-19 00:00:00 Completed [facility] MMR 2001-06-19 00:00:00 Completed [facility] Varicella (varivax)(chicken pox) 2001-06-19 00:00:00 Completed [facility] HIB 4 Dose Schedule 2001-06-19 00:00:00 Completed [facility] MMR 2001-06-19 00:00:00 Completed [facility] Varicella (varivax)(chicken pox) 2001-06-19 00:00:00 Completed [facility] HIB 4 Dose Schedule 2001-06-19 00:00:00 Completed [facility] MMR 2001-06-19 00:00:00 Completed [facility] Varicella (varivax)(chicken pox) 2001-06-19 00:00:00 Completed [facility] HIB 4 Dose Schedule 2001-06-19 00:00:00 Completed [facility] MMR 2001-06-19 00:00:00 Completed [facility] Varicella (varivax)(chicken pox) 2001-06-19 00:00:00 Completed [facility] HIB 4 Dose Schedule 2001-06-19 00:00:00 Completed [facility] MMR 2001-06-19 00:00:00 Completed [facility] Varicella (varivax)(chicken pox) 2001-06-19 00:00:00 Completed [facility] HIB 4 Dose Schedule 2001-06-19 00:00:00 Completed [facility] MMR 2001-06-19 00:00:00 Completed [facility] Varicella (varivax)(chicken pox) 2001-06-19 00:00:00 Completed [facility] Hib-HbOC 2001-06-19 00:00:00 Completed [facility] HIB 4 Dose Schedule 2001-06-19 00:00:00 Completed [facility] MMR 2001-06-19 00:00:00 Completed [facility] Varicella (varivax)(chicken pox) 2001-06-19 00:00:00 Completed [facility] Hib-HbOC 2001-06-19 00:00:00 Completed [facility] HIB 4 Dose Schedule 2001-06-19 00:00:00 Completed [facility] MMR 2001-06-19 00:00:00 Completed [facility] Varicella (varivax)(chicken pox) 2001-06-19 00:00:00 Completed [facility] Hib-HbOC 2001-06-19 00:00:00 Completed [facility] HIB 4 Dose Schedule 2001-06-19 00:00:00 Completed [facility] MMR 2001-06-19 00:00:00 [facility] [facility] Varicella (varivax)(chicken pox) 2001-06-19 00:00:00 Completed [facility] Hib-HbOC 2001-06-19 00:00:00 Completed [facility] HIB 4 Dose Schedule 2001-06-19 00:00:00 Completed [facility] MMR 2001-06-19 00:00:00 Completed [facility] Varicella (varivax)(chicken pox) 2001-06-19 00:00:00 Completed [facility] Hib-HbOC 2001-06-19 00:00:00 Completed [facility] HIB 4 Dose Schedule 2001-06-19 00:00:00 Completed [facility] MMR 2001-06-19 00:00:00 Completed [facility] Varicella (varivax)(chicken pox) 2001-06-19 00:00:00 Completed [facility] Hib-HbOC 2001-06-19 00:00:00 Completed [facility] HIB 4 Dose Schedule 2001-06-19 00:00:00 Completed [facility] MMR 2001-06-19 00:00:00 Completed [facility] Varicella (varivax)(chicken pox) 2001-06-19 00:00:00 Completed [facility] Hib-HbOC 2001-06-19 00:00:00 Completed [facility] HIB 4 Dose Schedule 2001-06-19 00:00:00 Completed [facility] MMR 2001-06-19 00:00:00 Completed [facility] Varicella (varivax)(chicken pox) 2001-06-19 00:00:00 Completed [facility] Hib-HbOC 2001-06-19 00:00:00 Completed [facility] HIB 4 Dose Schedule 2001-06-19 00:00:00 Completed [facility] MMR 2001-06-19 00:00:00 Completed [facility] Varicella (varivax)(chicken pox) 2001-06-19 00:00:00 Completed [facility] Hib-HbOC 2001-06-19 00:00:00 Completed [facility] HIB 4 Dose Schedule 2001-06-19 00:00:00 Completed [facility] MMR 2001-06-19 00:00:00 Completed [facility] Varicella (varivax)(chicken pox) 2001-06-19 00:00:00 Completed [facility] Hib-HbOC 2001-06-19 00:00:00 Completed [facility] HIB 4 Dose Schedule 2001-06-19 00:00:00 Completed [facility] MMR 2001-06-19 00:00:00 Completed [facility] Varicella (varivax)(chicken pox) 2001-06-19 00:00:00 Completed [facility] Hib-HbOC 2001-06-19 00:00:00 Completed [facility] HIB 4 Dose Schedule 2001-06-19 00:00:00 Completed [facility] MMR 2001-06-19 00:00:00 Completed [facility] Varicella (varivax)(chicken pox) 2001-06-19 00:00:00 Completed [facility] Hib-HbOC 2001-06-19 00:00:00 Completed [facility] HIB 4 Dose Schedule 2001-06-19 00:00:00 Completed [facility] MMR 2001-06-19 00:00:00 Completed [facility] Varicella (varivax)(chicken pox) 2001-06-19 00:00:00 Completed [facility] Hib-HbOC 2001-06-19 00:00:00 Completed [facility] HIB 4 Dose Schedule 2001-06-19 00:00:00 Completed [facility] MMR 2001-06-19 00:00:00 Completed [facility] Varicella (varivax)(chicken pox) 2001-06-19 00:00:00 Completed [facility] Hib-HbOC 2001-06-19 00:00:00 Completed [facility] HIB 4 Dose Schedule 2001-06-19 00:00:00 Completed [facility] MMR 2001-06-19 00:00:00 Completed [facility] Varicella (varivax)(chicken pox) 2001-06-19 00:00:00 Completed [facility] Hib-HbOC 2001-06-19 00:00:00 Completed [facility] HIB 4 Dose Schedule 2001-06-19 00:00:00 Completed [facility] MMR 2001-06-19 00:00:00 Completed [facility] Varicella (varivax)(chicken pox) 2001-06-19 00:00:00 Completed [facility] Hib-HbOC 2001-06-19 00:00:00 Completed [facility] HIB 4 Dose Schedule 2001-06-19 00:00:00 Completed [facility] MMR 2001-06-19 00:00:00 Completed [facility] Varicella (varivax)(chicken pox) 2001-06-19 00:00:00 Completed [facility] Hib-HbOC 2001-06-19 00:00:00 Completed [facility] HIB 4 Dose Schedule 2001-06-19 00:00:00 Completed [facility] MMR 2001-06-19 00:00:00 Completed [facility] Varicella (varivax)(chicken pox) 2001-06-19 00:00:00 Completed [facility] Hib-HbOC 2001-06-19 00:00:00 Completed [facility] HIB 4 Dose Schedule 2001-06-19 00:00:00 Completed [facility] MMR 2001-06-19 00:00:00 Completed [facility] Varicella (varivax)(chicken pox) 2001-06-19 00:00:00 Completed [facility] Hib-HbOC 2001-06-19 00:00:00 Completed [facility] HIB 4 Dose Schedule 2001-06-19 00:00:00 Completed [facility] MMR 2001-06-19 00:00:00 Completed [facility] Varicella (varivax)(chicken pox) 2001-06-19 00:00:00 Completed [facility] Hib-HbOC 2001-06-19 00:00:00 Completed [facility] HIB 4 Dose Schedule 2001-06-19 00:00:00 Completed [facility] MMR 2001-06-19 00:00:00 Completed [facility] Varicella (varivax)(chicken pox) 2001-06-19 00:00:00 Completed [facility] Hib-HbOC 2001-06-19 00:00:00 Completed [facility] DTAP 2000 00:00:00 Completed [facility] HIB 4 Dose Schedule 2000 00:00:00 Completed [facility] Hep B, Adol or Pedi Dosage 2000 00:00:00 Completed [facility] Pneumococcal 7 Conjugate, PCV7 (Prevnar7) 2000 00:00:00 Completed [facility] Polio (IPV/OPV) 2000 00:00:00 Completed [facility] DTAP 2000 00:00:00 Completed [facility] HIB 4 Dose Schedule 2000 00:00:00 Completed [facility] Hep B, Adol or Pedi Dosage 2000 00:00:00 Completed [facility] Pneumococcal 7 Conjugate, PCV7 (Prevnar7) 2000 00:00:00 Completed [facility] Polio (IPV/OPV) 2000 00:00:00 Completed [facility] DTAP 2000 00:00:00 Completed [facility] HIB 4 Dose Schedule 2000 00:00:00 Completed [facility] Hep B, Adol or Pedi Dosage 2000 00:00:00 Completed [facility] Pneumococcal 7 Conjugate, PCV7 (Prevnar7) 2000 00:00:00 Completed [facility] Polio (IPV/OPV) 2000 00:00:00 Completed [facility] DTAP 2000 00:00:00 Completed [facility] HIB 4 Dose Schedule 2000 00:00:00 Completed [facility] Hep B, Adol or Pedi Dosage 2000 00:00:00 Completed [facility] Pneumococcal 7 Conjugate, PCV7 (Prevnar7) 2000 00:00:00 Completed [facility] Polio (IPV/OPV) 2000 00:00:00 Completed [facility] DTAP 2000 00:00:00 Completed [facility] HIB 4 Dose Schedule 2000 00:00:00 Completed [facility] Hep B, Adol or Pedi Dosage 2000 00:00:00 Completed [facility] Pneumococcal 7 Conjugate, PCV7 (Prevnar7) 2000 00:00:00 Completed [facility] Polio (IPV/OPV) 2000 00:00:00 Completed [facility] DTAP 2000 00:00:00 Completed [facility] HIB 4 Dose Schedule 2000 00:00:00 Completed [facility] Hep B, Adol or Pedi Dosage 2000 00:00:00 Completed [facility] Pneumococcal 7 Conjugate, PCV7 (Prevnar7) 2000 00:00:00 Completed [facility] Polio (IPV/OPV) 2000 00:00:00 Completed [facility] DTAP 2000 00:00:00 Completed [facility] HIB 4 Dose Schedule 2000 00:00:00 Completed [facility] Hep B, Adol or Pedi Dosage 2000 00:00:00 Completed [facility] Pneumococcal 7 Conjugate, PCV7 (Prevnar7) 2000 00:00:00 Completed [facility] Polio (IPV/OPV) 2000 00:00:00 Completed [facility] DTAP 2000 00:00:00 Completed [facility] HIB 4 Dose Schedule 2000 00:00:00 Completed [facility] Hep B, Adol or Pedi Dosage 2000 00:00:00 Completed [facility] Pneumococcal 7 Conjugate, PCV7 (Prevnar7) 2000 00:00:00 Completed [facility] Polio (IPV/OPV) 2000 00:00:00 Completed [facility] DTAP 2000 00:00:00 Completed [facility] HIB 4 Dose Schedule 2000 00:00:00 Completed [facility] Hep B, Adol or Pedi Dosage 2000 00:00:00 Completed [facility] Pneumococcal 7 Conjugate, PCV7 (Prevnar7) 2000 00:00:00 Completed [facility] Polio (IPV/OPV) 2000 00:00:00 Completed [facility] DTAP 2000 00:00:00 Completed [facility] HIB 4 Dose Schedule 2000 00:00:00 Completed [facility] Hep B, Adol or Pedi Dosage 2000 00:00:00 Completed [facility] Pneumococcal 7 Conjugate, PCV7 (Prevnar7) 2000 00:00:00 Completed [facility] Polio (IPV/OPV) 2000 00:00:00 Completed [facility] DTAP 2000 00:00:00 Completed [facility] HIB 4 Dose Schedule 2000 00:00:00 Completed [facility] Hep B, Adol or Pedi Dosage 2000 00:00:00 Completed [facility] Pneumococcal 7 Conjugate, PCV7 (Prevnar7) 2000 00:00:00 Completed [facility] Polio (IPV/OPV) 2000 00:00:00 Completed [facility] DTAP 2000 00:00:00 Completed [facility] HIB 4 Dose Schedule 2000 00:00:00 Completed [facility] Hep B, Adol or Pedi Dosage 2000 00:00:00 Completed [facility] Pneumococcal 7 Conjugate, PCV7 (Prevnar7) 2000 00:00:00 Completed [facility] Polio (IPV/OPV) 2000 00:00:00 Completed [facility] HIB 4 Dose Schedule 2000 00:00:00 Completed [facility] Hep B, Adol or Pedi Dosage 2000 00:00:00 Completed [facility] Pneumococcal 7 Conjugate, PCV7 (Prevnar7) 2000 00:00:00 Completed [facility] Polio (IPV/OPV) 2000 00:00:00 Completed [facility] DTaP, Unspecified Formulation 2000 00:00:00 Completed [facility] Hib-HbOC 2000 00:00:00 Completed [facility] IPV 2000 00:00:00 Completed [facility] HIB 4 Dose Schedule 2000 00:00:00 Completed [facility] Hep B, Adol or Pedi Dosage 2000 00:00:00 Completed [facility] Pneumococcal 7 Conjugate, PCV7 (Prevnar7) 2000 00:00:00 Completed [facility] Polio (IPV/OPV) 2000 00:00:00 Completed [facility] DTaP, Unspecified Formulation 2000 00:00:00 Completed [facility] Hib-HbOC 2000 00:00:00 Completed [facility] IPV 2000 00:00:00 Completed [facility] HIB 4 Dose Schedule 2000 00:00:00 Completed [facility] Hep B, Adol or Pedi Dosage 2000 00:00:00 Completed [facility] Pneumococcal 7 Conjugate, PCV7 (Prevnar7) 2000 00:00:00 Completed [facility] Polio (IPV/OPV) 2000 00:00:00 Completed [facility] DTaP, Unspecified Formulation 2000 00:00:00 Completed [facility] Hib-HbOC 2000 00:00:00 Completed [facility] IPV 2000 00:00:00 Completed [facility] HIB 4 Dose Schedule 2000 00:00:00 Completed [facility] Hep B, Adol or Pedi Dosage 2000 00:00:00 Completed [facility] Pneumococcal 7 Conjugate, PCV7 (Prevnar7) 2000 00:00:00 Completed [facility] Polio (IPV/OPV) 2000 00:00:00 Completed [facility] DTaP, Unspecified Formulation 2000 00:00:00 Completed [facility] Hib-HbOC 2000 00:00:00 Completed [facility] IPV 2000 00:00:00 Completed [facility] HIB 4 Dose Schedule 2000 00:00:00 Completed [facility] Hep B, Adol or Pedi Dosage 2000 00:00:00 Completed [facility] Pneumococcal 7 Conjugate, PCV7 (Prevnar7) 2000 00:00:00 Completed [facility] Polio (IPV/OPV) 2000 00:00:00 Completed [facility] DTaP, Unspecified Formulation 2000 00:00:00 Completed [facility] Hib-HbOC 2000 00:00:00 Completed [facility] IPV 2000 00:00:00 Completed [facility] HIB 4 Dose Schedule 2000 00:00:00 Completed [facility] Hep B, Adol or Pedi Dosage 2000 00:00:00 Completed [facility] Pneumococcal 7 Conjugate, PCV7 (Prevnar7) 2000 00:00:00 Completed [facility] Polio (IPV/OPV) 2000 00:00:00 Completed [facility] DTaP, Unspecified Formulation 2000 00:00:00 Completed [facility] Hib-HbOC 2000 00:00:00 Completed [facility] IPV 2000 00:00:00 Completed [facility] HIB 4 Dose Schedule 2000 00:00:00 Completed [facility] Hep B, Adol or Pedi Dosage 2000 00:00:00 Completed [facility] Pneumococcal 7 Conjugate, PCV7 (Prevnar7) 2000 00:00:00 Completed [facility] Polio (IPV/OPV) 2000 00:00:00 Completed [facility] DTaP, Unspecified Formulation 2000 00:00:00 Completed [facility] Hib-HbOC 2000 00:00:00 Completed [facility] IPV 2000 00:00:00 Completed [facility] HIB 4 Dose Schedule 2000 00:00:00 Completed [facility] Hep B, Adol or Pedi Dosage 2000 00:00:00 Completed [facility] Pneumococcal 7 Conjugate, PCV7 (Prevnar7) 2000 00:00:00 Completed [facility] Polio (IPV/OPV) 2000 00:00:00 Completed [facility] DTaP, Unspecified Formulation 2000 00:00:00 Completed [facility] Hib-HbOC 2000 00:00:00 Completed [facility] IPV 2000 00:00:00 Completed [facility] HIB 4 Dose Schedule 2000 00:00:00 Completed [facility] Hep B, Adol or Pedi Dosage 2000 00:00:00 Completed [facility] Pneumococcal 7 Conjugate, PCV7 (Prevnar7) 2000 00:00:00 Completed [facility] Polio (IPV/OPV) 2000 00:00:00 Completed [facility] DTaP, Unspecified Formulation 2000 00:00:00 Completed [facility] Hib-HbOC 2000 00:00:00 Completed [facility] IPV 2000 00:00:00 Completed [facility] HIB 4 Dose Schedule 2000 00:00:00 Completed [facility] Hep B, Adol or Pedi Dosage 2000 00:00:00 Completed [facility] Pneumococcal 7 Conjugate, PCV7 (Prevnar7) 2000 00:00:00 Completed [facility] Polio (IPV/OPV) 2000 00:00:00 Completed [facility] DTaP, Unspecified Formulation 2000 00:00:00 Completed [facility] Hib-HbOC 2000 00:00:00 Completed [facility] IPV 2000 00:00:00 Completed [facility] HIB 4 Dose Schedule 2000 00:00:00 Completed [facility] Hep B, Adol or Pedi Dosage 2000 00:00:00 Completed [facility] Pneumococcal 7 Conjugate, PCV7 (Prevnar7) 2000 00:00:00 Completed [facility] Polio (IPV/OPV) 2000 00:00:00 Completed [facility] DTaP, Unspecified Formulation 2000 00:00:00 Completed [facility] Hib-HbOC 2000 00:00:00 Completed [facility] IPV 2000 00:00:00 Completed [facility] HIB 4 Dose Schedule 2000 00:00:00 Completed [facility] Hep B, Adol or Pedi Dosage 2000 00:00:00 Completed [facility] Pneumococcal 7 Conjugate, PCV7 (Prevnar7) 2000 00:00:00 Completed [facility] Polio (IPV/OPV) 2000 00:00:00 Completed [facility] DTaP, Unspecified Formulation 2000 00:00:00 Completed [facility] Hib-HbOC 2000 00:00:00 Completed [facility] IPV 2000 00:00:00 Completed [facility] HIB 4 Dose Schedule 2000 00:00:00 Completed [facility] Hep B, Adol or Pedi Dosage 2000 00:00:00 Completed [facility] Pneumococcal 7 Conjugate, PCV7 (Prevnar7) 2000 00:00:00 Completed [facility] Polio (IPV/OPV) 2000 00:00:00 Completed [facility] DTaP, Unspecified Formulation 2000 00:00:00 Completed [facility] Hib-HbOC 2000 00:00:00 Completed [facility] IPV 2000 00:00:00 Completed [facility] HIB 4 Dose Schedule 2000 00:00:00 Completed [facility] Hep B, Adol or Pedi Dosage 2000 00:00:00 Completed [facility] Pneumococcal 7 Conjugate, PCV7 (Prevnar7) 2000 00:00:00 Completed [facility] Polio (IPV/OPV) 2000 00:00:00 Completed [facility] DTaP, Unspecified Formulation 2000 00:00:00 Completed [facility] Hib-HbOC 2000 00:00:00 Completed [facility] IPV 2000 00:00:00 Completed [facility] HIB 4 Dose Schedule 2000 00:00:00 Completed [facility] Hep B, Adol or Pedi Dosage 2000 00:00:00 Completed [facility] Pneumococcal 7 Conjugate, PCV7 (Prevnar7) 2000 00:00:00 Completed [facility] Polio (IPV/OPV) 2000 00:00:00 Completed [facility] DTaP, Unspecified Formulation 2000 00:00:00 Completed [facility] Hib-HbOC 2000 00:00:00 Completed [facility] IPV 2000 00:00:00 Completed [facility] HIB 4 Dose Schedule 2000 00:00:00 Completed [facility] Hep B, Adol or Pedi Dosage 2000 00:00:00 Completed [facility] Pneumococcal 7 Conjugate, PCV7 (Prevnar7) 2000 00:00:00 Completed [facility] Polio (IPV/OPV) 2000 00:00:00 Completed [facility] DTaP, Unspecified Formulation 2000 00:00:00 Completed [facility] Hib-HbOC 2000 00:00:00 Completed [facility] IPV 2000 00:00:00 Completed [facility] HIB 4 Dose Schedule 2000 00:00:00 Completed [facility] Hep B, Adol or Pedi Dosage 2000 00:00:00 Completed [facility] Pneumococcal 7 Conjugate, PCV7 (Prevnar7) 2000 00:00:00 Completed [facility] Polio (IPV/OPV) 2000 00:00:00 Completed [facility] DTaP, Unspecified Formulation 2000 00:00:00 Completed [facility] Hib-HbOC 2000 00:00:00 Completed [facility] IPV 2000 00:00:00 Completed [facility] HIB 4 Dose Schedule 2000 00:00:00 Completed [facility] Hep B, Adol or Pedi Dosage 2000 00:00:00 Completed [facility] Pneumococcal 7 Conjugate, PCV7 (Prevnar7) 2000 00:00:00 Completed [facility] Polio (IPV/OPV) 2000 00:00:00 Completed [facility] DTaP, Unspecified Formulation 2000 00:00:00 Completed [facility] Hib-HbOC 2000 00:00:00 Completed [facility] IPV 2000 00:00:00 Completed [facility] HIB 4 Dose Schedule 2000 00:00:00 Completed [facility] Hep B, Adol or Pedi Dosage 2000 00:00:00 Completed [facility] Pneumococcal 7 Conjugate, PCV7 (Prevnar7) 2000 00:00:00 Completed [facility] Polio (IPV/OPV) 2000 00:00:00 Completed [facility] DTaP, Unspecified Formulation 2000 00:00:00 Completed [facility] Hib-HbOC 2000 00:00:00 Completed [facility] IPV 2000 00:00:00 Completed [facility] HIB 4 Dose Schedule 2000 00:00:00 Completed [facility] Hep B, Adol or Pedi Dosage 2000 00:00:00 Completed [facility] Pneumococcal 7 Conjugate, PCV7 (Prevnar7) 2000 00:00:00 Completed [facility] Polio (IPV/OPV) 2000 00:00:00 Completed [facility] DTaP, Unspecified Formulation 2000 00:00:00 Completed [facility] Hib-HbOC 2000 00:00:00 Completed [facility] IPV 2000 00:00:00 Completed [facility] HIB 4 Dose Schedule 2000 00:00:00 Completed [facility] Hep B, Adol or Pedi Dosage 2000 00:00:00 Completed [facility] Pneumococcal 7 Conjugate, PCV7 (Prevnar7) 2000 00:00:00 Completed [facility] Polio (IPV/OPV) 2000 00:00:00 Completed [facility] DTaP, Unspecified Formulation 2000 00:00:00 Completed [facility] Hib-HbOC 2000 00:00:00 Completed [facility] IPV 2000 00:00:00 Completed [facility] DTAP 2000 00:00:00 Completed [facility] HIB 4 Dose Schedule 2000 00:00:00 Completed [facility] Polio (IPV/OPV) 2000 00:00:00 Completed [facility] DTAP 2000 00:00:00 Completed [facility] HIB 4 Dose Schedule 2000 00:00:00 Completed [facility] Polio (IPV/OPV) 2000 00:00:00 Completed [facility] DTAP 2000 00:00:00 Completed [facility] HIB 4 Dose Schedule 2000 00:00:00 Completed [facility] Polio (IPV/OPV) 2000 00:00:00 Completed [facility] DTAP 2000 00:00:00 Completed [facility] HIB 4 Dose Schedule 2000 00:00:00 Completed [facility] Polio (IPV/OPV) 2000 00:00:00 Completed [facility] DTAP 2000 00:00:00 Completed [facility] HIB 4 Dose Schedule 2000 00:00:00 Completed [facility] Polio (IPV/OPV) 2000 00:00:00 Completed [facility] DTAP 2000 00:00:00 Completed [facility] HIB 4 Dose Schedule 2000 00:00:00 Completed [facility] Polio (IPV/OPV) 2000 00:00:00 Completed [facility] DTAP 2000 00:00:00 Completed [facility] HIB 4 Dose Schedule 2000 00:00:00 Completed [facility] Polio (IPV/OPV) 2000 00:00:00 Completed [facility] DTAP 2000 00:00:00 Completed [facility] HIB 4 Dose Schedule 2000 00:00:00 Completed [facility] Polio (IPV/OPV) 2000 00:00:00 Completed [facility] DTAP 2000 00:00:00 Completed [facility] HIB 4 Dose Schedule 2000 00:00:00 Completed [facility] Polio (IPV/OPV) 2000 00:00:00 Completed [facility] DTAP 2000 00:00:00 Completed [facility] HIB 4 Dose Schedule 2000 00:00:00 Completed [facility] Polio (IPV/OPV) 2000 00:00:00 Completed [facility] DTAP 2000 00:00:00 Completed [facility] HIB 4 Dose Schedule 2000 00:00:00 Completed [facility] Polio (IPV/OPV) 2000 00:00:00 Completed [facility] DTAP 2000 00:00:00 Completed [facility] HIB 4 Dose Schedule 2000 00:00:00 Completed [facility] Polio (IPV/OPV) 2000 00:00:00 Completed [facility] HIB 4 Dose Schedule 2000 00:00:00 Completed [facility] Polio (IPV/OPV) 2000 00:00:00 Completed [facility] DTaP, Unspecified Formulation 2000 00:00:00 Completed [facility] Hib-HbOC 2000 00:00:00 Completed [facility] IPV 2000 00:00:00 Completed [facility] HIB 4 Dose Schedule 2000 00:00:00 Completed [facility] Polio (IPV/OPV) 2000 00:00:00 Completed [facility] DTaP, Unspecified Formulation 2000 00:00:00 Completed [facility] Hib-HbOC 2000 00:00:00 Completed [facility] IPV 2000 00:00:00 Completed [facility] HIB 4 Dose Schedule 2000 00:00:00 Completed [facility] Polio (IPV/OPV) 2000 00:00:00 Completed [facility] DTaP, Unspecified Formulation 2000 00:00:00 Completed [facility] Hib-HbOC 2000 00:00:00 Completed [facility] IPV 2000 00:00:00 Completed [facility] HIB 4 Dose Schedule 2000 00:00:00 Completed [facility] Polio (IPV/OPV) 2000 00:00:00 Completed [facility] DTaP, Unspecified Formulation 2000 00:00:00 Completed [facility] Hib-HbOC 2000 00:00:00 Completed [facility] IPV 2000 00:00:00 Completed [facility] HIB 4 Dose Schedule 2000 00:00:00 Completed [facility] Polio (IPV/OPV) 2000 00:00:00 Completed [facility] DTaP, Unspecified Formulation 2000 00:00:00 Completed [facility] Hib-HbOC 2000 00:00:00 Completed [facility] IPV 2000 00:00:00 Completed [facility] HIB 4 Dose Schedule 2000 00:00:00 Completed [facility] Polio (IPV/OPV) 2000 00:00:00 Completed [facility] DTaP, Unspecified Formulation 2000 00:00:00 Completed [facility] Hib-HbOC 2000 00:00:00 Completed [facility] IPV 2000 00:00:00 Completed [facility] HIB 4 Dose Schedule 2000 00:00:00 Completed [facility] Polio (IPV/OPV) 2000 00:00:00 Completed [facility] DTaP, Unspecified Formulation 2000 00:00:00 Completed [facility] Hib-HbOC 2000 00:00:00 Completed [facility] IPV 2000 00:00:00 Completed [facility] HIB 4 Dose Schedule 2000 00:00:00 Completed [facility] Polio (IPV/OPV) 2000 00:00:00 Completed [facility] DTaP, Unspecified Formulation 2000 00:00:00 Completed [facility] Hib-HbOC 2000 00:00:00 Completed [facility] IPV 2000 00:00:00 Completed [facility] HIB 4 Dose Schedule 2000 00:00:00 Completed [facility] Polio (IPV/OPV) 2000 00:00:00 Completed [facility] DTaP, Unspecified Formulation 2000 00:00:00 Completed [facility] Hib-HbOC 2000 00:00:00 Completed [facility] IPV 2000 00:00:00 Completed [facility] HIB 4 Dose Schedule 2000 00:00:00 Completed [facility] Polio (IPV/OPV) 2000 00:00:00 Completed [facility] DTaP, Unspecified Formulation 2000 00:00:00 Completed [facility] Hib-HbOC 2000 00:00:00 Completed [facility] IPV 2000 00:00:00 Completed [facility] HIB 4 Dose Schedule 2000 00:00:00 Completed [facility] Polio (IPV/OPV) 2000 00:00:00 Completed [facility] DTaP, Unspecified Formulation 2000 00:00:00 Completed [facility] Hib-HbOC 2000 00:00:00 Completed [facility] IPV 2000 00:00:00 Completed [facility] HIB 4 Dose Schedule 2000 00:00:00 Completed [facility] Polio (IPV/OPV) 2000 00:00:00 Completed [facility] DTaP, Unspecified Formulation 2000 00:00:00 Completed [facility] Hib-HbOC 2000 00:00:00 Completed [facility] IPV 2000 00:00:00 Completed [facility] HIB 4 Dose Schedule 2000 00:00:00 Completed [facility] Polio (IPV/OPV) 2000 00:00:00 Completed [facility] DTaP, Unspecified Formulation 2000 00:00:00 Completed [facility] Hib-HbOC 2000 00:00:00 Completed [facility] IPV 2000 00:00:00 Completed [facility] HIB 4 Dose Schedule 2000 00:00:00 Completed [facility] Polio (IPV/OPV) 2000 00:00:00 Completed [facility] DTaP, Unspecified Formulation 2000 00:00:00 Completed [facility] Hib-HbOC 2000 00:00:00 Completed [facility] IPV 2000 00:00:00 Completed [facility] HIB 4 Dose Schedule 2000 00:00:00 Completed [facility] Polio (IPV/OPV) 2000 00:00:00 Completed [facility] DTaP, Unspecified Formulation 2000 00:00:00 Completed [facility] Hib-HbOC 2000 00:00:00 Completed [facility] IPV 2000 00:00:00 Completed [facility] HIB 4 Dose Schedule 2000 00:00:00 Completed [facility] Polio (IPV/OPV) 2000 00:00:00 Completed [facility] DTaP, Unspecified Formulation 2000 00:00:00 Completed [facility] Hib-HbOC 2000 00:00:00 Completed [facility] IPV 2000 00:00:00 Completed [facility] HIB 4 Dose Schedule 2000 00:00:00 Completed [facility] Polio (IPV/OPV) 2000 00:00:00 Completed [facility] DTaP, Unspecified Formulation 2000 00:00:00 Completed [facility] Hib-HbOC 2000 00:00:00 Completed [facility] IPV 2000 00:00:00 Completed [facility] HIB 4 Dose Schedule 2000 00:00:00 Completed [facility] Polio (IPV/OPV) 2000 00:00:00 Completed [facility] DTaP, Unspecified Formulation 2000 00:00:00 Completed [facility] Hib-HbOC 2000 00:00:00 Completed [facility] IPV 2000 00:00:00 Completed [facility] HIB 4 Dose Schedule 2000 00:00:00 Completed [facility] Polio (IPV/OPV) 2000 00:00:00 Completed [facility] DTaP, Unspecified Formulation 2000 00:00:00 Completed [facility] Hib-HbOC 2000 00:00:00 Completed [facility] IPV 2000 00:00:00 Completed [facility] HIB 4 Dose Schedule 2000 00:00:00 Completed [facility] Polio (IPV/OPV) 2000 00:00:00 Completed [facility] DTaP, Unspecified Formulation 2000 00:00:00 Completed [facility] Hib-HbOC 2000 00:00:00 Completed [facility] IPV 2000 00:00:00 Completed [facility] HIB 4 Dose Schedule 2000 00:00:00 Completed [facility] Polio (IPV/OPV) 2000 00:00:00 Completed [facility] DTaP, Unspecified Formulation 2000 00:00:00 Completed [facility] Hib-HbOC 2000 00:00:00 Completed [facility] IPV 2000 00:00:00 Completed [facility] DTAP 2000 00:00:00 Completed [facility] HIB 4 Dose Schedule 2000 00:00:00 Completed [facility] Hep B, Adol or Pedi Dosage 2000 00:00:00 Completed [facility] DTAP 2000 00:00:00 Completed [facility] HIB 4 Dose Schedule 2000 00:00:00 Completed [facility] Hep B, Adol or Pedi Dosage 2000 00:00:00 Completed [facility] DTAP 2000 00:00:00 Completed [facility] HIB 4 Dose Schedule 2000 00:00:00 Completed [facility] Hep B, Adol or Pedi Dosage 2000 00:00:00 Completed [facility] DTAP 2000 00:00:00 Completed [facility] HIB 4 Dose Schedule 2000 00:00:00 Completed [facility] Hep B, Adol or Pedi Dosage 2000 00:00:00 Completed [facility] DTAP 2000 00:00:00 Completed [facility] HIB 4 Dose Schedule 2000 00:00:00 Completed [facility] Hep B, Adol or Pedi Dosage 2000 00:00:00 Completed [facility] DTAP 2000 00:00:00 Completed [facility] HIB 4 Dose Schedule 2000 00:00:00 Completed [facility] Hep B, Adol or Pedi Dosage 2000 00:00:00 Completed [facility] DTAP 2000 00:00:00 Completed [facility] HIB 4 Dose Schedule 2000 00:00:00 Completed [facility] Hep B, Adol or Pedi Dosage 2000 00:00:00 Completed [facility] DTAP 2000 00:00:00 Completed [facility] HIB 4 Dose Schedule 2000 00:00:00 Completed [facility] Hep B, Adol or Pedi Dosage 2000 00:00:00 Completed [facility] DTAP 2000 00:00:00 Completed [facility] HIB 4 Dose Schedule 2000 00:00:00 Completed [facility] Hep B, Adol or Pedi Dosage 2000 00:00:00 Completed [facility] DTAP 2000 00:00:00 Completed [facility] HIB 4 Dose Schedule 2000 00:00:00 Completed [facility] Hep B, Adol or Pedi Dosage 2000 00:00:00 Completed [facility] DTAP 2000 00:00:00 Completed [facility] HIB 4 Dose Schedule 2000 00:00:00 Completed [facility] Hep B, Adol or Pedi Dosage 2000 00:00:00 Completed [facility] DTAP 2000 00:00:00 Completed [facility] HIB 4 Dose Schedule 2000 00:00:00 Completed [facility] Hep B, Adol or Pedi Dosage 2000 00:00:00 Completed [facility] HIB 4 Dose Schedule 2000 00:00:00 Completed [facility] Hep B, Adol or Pedi Dosage 2000 00:00:00 Completed [facility] DTaP, Unspecified Formulation 2000 00:00:00 Completed [facility] Hib-HbOC 2000 00:00:00 Completed [facility] HIB 4 Dose Schedule 2000 00:00:00 Completed [facility] Hep B, Adol or Pedi Dosage 2000 00:00:00 Completed [facility] DTaP, Unspecified Formulation 2000 00:00:00 Completed [facility] Hib-HbOC 2000 00:00:00 Completed [facility] HIB 4 Dose Schedule 2000 00:00:00 Completed [facility] Hep B, Adol or Pedi Dosage 2000 00:00:00 Completed [facility] DTaP, Unspecified Formulation 2000 00:00:00 Completed [facility] Hib-HbOC 2000 00:00:00 Completed [facility] HIB 4 Dose Schedule 2000 00:00:00 Completed [facility] Hep B, Adol or Pedi Dosage 2000 00:00:00 Completed [facility] DTaP, Unspecified Formulation 2000 00:00:00 Completed [facility] Hib-HbOC 2000 00:00:00 Completed [facility] HIB 4 Dose Schedule 2000 00:00:00 Completed [facility] Hep B, Adol or Pedi Dosage 2000 00:00:00 Completed [facility] DTaP, Unspecified Formulation 2000 00:00:00 Completed [facility] Hib-HbOC 2000 00:00:00 Completed [facility] HIB 4 Dose Schedule 2000 00:00:00 Completed [facility] Hep B, Adol or Pedi Dosage 2000 00:00:00 Completed [facility] DTaP, Unspecified Formulation 2000 00:00:00 Completed [facility] Hib-HbOC 2000 00:00:00 Completed [facility] HIB 4 Dose Schedule 2000 00:00:00 Completed [facility] Hep B, Adol or Pedi Dosage 2000 00:00:00 Completed [facility] DTaP, Unspecified Formulation 2000 00:00:00 Completed [facility] Hib-HbOC 2000 00:00:00 Completed [facility] HIB 4 Dose Schedule 2000 00:00:00 Completed [facility] Hep B, Adol or Pedi Dosage 2000 00:00:00 Completed [facility] DTaP, Unspecified Formulation 2000 00:00:00 Completed [facility] Hib-HbOC 2000 00:00:00 Completed [facility] HIB 4 Dose Schedule 2000 00:00:00 Completed [facility] Hep B, Adol or Pedi Dosage 2000 00:00:00 Completed [facility] DTaP, Unspecified Formulation 2000 00:00:00 Completed [facility] Hib-HbOC 2000 00:00:00 Completed [facility] HIB 4 Dose Schedule 2000 00:00:00 Completed [facility] Hep B, Adol or Pedi Dosage 2000 00:00:00 Completed [facility] DTaP, Unspecified Formulation 2000 00:00:00 Completed [facility] Hib-HbOC 2000 00:00:00 Completed [facility] HIB 4 Dose Schedule 2000 00:00:00 Completed [facility] Hep B, Adol or Pedi Dosage 2000 00:00:00 Completed [facility] DTaP, Unspecified Formulation 2000 00:00:00 Completed [facility] Hib-HbOC 2000 00:00:00 Completed [facility] HIB 4 Dose Schedule 2000 00:00:00 Completed [facility] Hep B, Adol or Pedi Dosage 2000 00:00:00 Completed [facility] DTaP, Unspecified Formulation 2000 00:00:00 Completed [facility] Hib-HbOC 2000 00:00:00 Completed [facility] HIB 4 Dose Schedule 2000 00:00:00 Completed [facility] Hep B, Adol or Pedi Dosage 2000 00:00:00 Completed [facility] DTaP, Unspecified Formulation 2000 00:00:00 Completed [facility] Hib-HbOC 2000 00:00:00 Completed [facility] HIB 4 Dose Schedule 2000 00:00:00 Completed [facility] Hep B, Adol or Pedi Dosage 2000 00:00:00 Completed [facility] DTaP, Unspecified Formulation 2000 00:00:00 Completed [facility] Hib-HbOC 2000 00:00:00 Completed [facility] HIB 4 Dose Schedule 2000 00:00:00 Completed [facility] Hep B, Adol or Pedi Dosage 2000 00:00:00 Completed [facility] DTaP, Unspecified Formulation 2000 00:00:00 Completed [facility] Hib-HbOC 2000 00:00:00 Completed [facility] HIB 4 Dose Schedule 2000 00:00:00 Completed [facility] Hep B, Adol or Pedi Dosage 2000 00:00:00 Completed [facility] DTaP, Unspecified Formulation 2000 00:00:00 Completed [facility] Hib-HbOC 2000 00:00:00 Completed [facility] HIB 4 Dose Schedule 2000 00:00:00 Completed [facility] Hep B, Adol or Pedi Dosage 2000 00:00:00 Completed [facility] DTaP, Unspecified Formulation 2000 00:00:00 Completed [facility] Hib-HbOC 2000 00:00:00 Completed [facility] HIB 4 Dose Schedule 2000 00:00:00 Completed [facility] Hep B, Adol or Pedi Dosage 2000 00:00:00 Completed [facility] DTaP, Unspecified Formulation 2000 00:00:00 Completed [facility] Hib-HbOC 2000 00:00:00 Completed [facility] HIB 4 Dose Schedule 2000 00:00:00 Completed [facility] Hep B, Adol or Pedi Dosage 2000 00:00:00 Completed [facility] DTaP, Unspecified Formulation 2000 00:00:00 Completed [facility] Hib-HbOC 2000 00:00:00 Completed [facility] HIB 4 Dose Schedule 2000 00:00:00 Completed [facility] Hep B, Adol or Pedi Dosage 2000 00:00:00 Completed [facility] DTaP, Unspecified Formulation 2000 00:00:00 Completed [facility] Hib-HbOC 2000 00:00:00 Completed [facility] HIB 4 Dose Schedule 2000 00:00:00 Completed [facility] [facility] Hep B, Adol or Pedi Dosage 2000 00:00:00 Completed [facility] DTaP, Unspecified Formulation 2000 00:00:00 Completed [facility] Hib-HbOC 2000 00:00:00 Completed [facility] Polio (IPV/OPV) 2000 00:00:00 Completed [facility] Polio (IPV/OPV) 2000 00:00:00 Completed [facility] Polio (IPV/OPV) 2000 00:00:00 Completed [facility] Polio (IPV/OPV) 2000 00:00:00 Completed [facility] Polio (IPV/OPV) 2000 00:00:00 Completed [facility] Polio (IPV/OPV) 2000 00:00:00 Completed [facility] Polio (IPV/OPV) 2000 00:00:00 Completed [facility] Polio (IPV/OPV) 2000 00:00:00 Completed [facility] Polio (IPV/OPV) 2000 00:00:00 Completed [facility] Polio (IPV/OPV) 2000 00:00:00 Completed [facility] Polio (IPV/OPV) 2000 00:00:00 Completed [facility] Polio (IPV/OPV) 2000 00:00:00 Completed [facility] Polio (IPV/OPV) 2000 00:00:00 Completed [facility] IPV 2000 00:00:00 Completed [facility] Polio (IPV/OPV) 2000 00:00:00 Completed [facility] IPV 2000 00:00:00 Completed [facility] Polio (IPV/OPV) 2000 00:00:00 Completed [facility] IPV 2000 00:00:00 Completed [facility] Polio (IPV/OPV) 2000 00:00:00 Completed [facility] IPV 2000 00:00:00 Completed [facility] Polio (IPV/OPV) 2000 00:00:00 Completed [facility] IPV 2000 00:00:00 Completed [facility] Polio (IPV/OPV) 2000 00:00:00 Completed [facility] IPV 2000 00:00:00 Completed [facility] Polio (IPV/OPV) 2000 00:00:00 Completed [facility] IPV 2000 00:00:00 Completed [facility] Polio (IPV/OPV) 2000 00:00:00 Completed [facility] IPV 2000 00:00:00 Completed [facility] Polio (IPV/OPV) 2000 00:00:00 Completed [facility] IPV 2000 00:00:00 Completed [facility] Polio (IPV/OPV) 2000 00:00:00 Completed [facility] IPV 2000 00:00:00 Completed [facility] Polio (IPV/OPV) 2000 00:00:00 Completed [facility] IPV 2000 00:00:00 Completed [facility] Polio (IPV/OPV) 2000 00:00:00 Completed [facility] IPV 2000 00:00:00 Completed [facility] Polio (IPV/OPV) 2000 00:00:00 Completed [facility] IPV 2000 00:00:00 Completed [facility] Polio (IPV/OPV) 2000 00:00:00 Completed [facility] IPV 2000 00:00:00 Completed [facility] Polio (IPV/OPV) 2000 00:00:00 Completed [facility] IPV 2000 00:00:00 Completed [facility] Polio (IPV/OPV) 2000 00:00:00 Completed [facility] IPV 2000 00:00:00 Completed [facility] Polio (IPV/OPV) 2000 00:00:00 Completed [facility] IPV 2000 00:00:00 Completed [facility] Polio (IPV/OPV) 2000 00:00:00 Completed [facility] IPV 2000 00:00:00 Completed [facility] Polio (IPV/OPV) 2000 00:00:00 Completed [facility] IPV 2000 00:00:00 Completed [facility] Polio (IPV/OPV) 2000 00:00:00 Completed [facility] IPV 2000 00:00:00 Completed [facility] Polio (IPV/OPV) 2000 00:00:00 Completed [facility] IPV 2000 00:00:00 Completed [facility] Hep B, Adol or Pedi Dosage 2000 00:00:00 Completed [facility] Hep B, Adol or Pedi Dosage 2000 00:00:00 Completed [facility] Hep B, Adol or Pedi Dosage 2000 00:00:00 Completed [facility] Hep B, Adol or Pedi Dosage 2000 00:00:00 Completed [facility] Hep B, Adol or Pedi Dosage 2000 00:00:00 Completed [facility] Hep B, Adol or Pedi Dosage 2000 00:00:00 Completed [facility] Hep B, Adol or Pedi Dosage 2000 00:00:00 Completed [facility] Hep B, Adol or Pedi Dosage 2000 00:00:00 Completed [facility] Hep B, Adol or Pedi Dosage 2000 00:00:00 Completed [facility] Hep B, Adol or Pedi Dosage 2000 00:00:00 Completed [facility] Hep B, Adol or Pedi Dosage 2000 00:00:00 Completed [facility] Hep B, Adol or Pedi Dosage 2000 00:00:00 Completed [facility] Hep B, Adol or Pedi Dosage 2000 00:00:00 Completed [facility] Hep B, Adol or Pedi Dosage 2000 00:00:00 Completed [facility] Hep B, Adol or Pedi Dosage 2000 00:00:00 Completed [facility] Hep B, Adol or Pedi Dosage 2000 00:00:00 Completed [facility] Hep B, Adol or Pedi Dosage 2000 00:00:00 Completed [facility] Hep B, Adol or Pedi Dosage 2000 00:00:00 Completed [facility] Hep B, Adol or Pedi Dosage 2000 00:00:00 Completed [facility] Hep B, Adol or Pedi Dosage 2000 00:00:00 Completed [facility] Hep B, Adol or Pedi Dosage 2000 00:00:00 Completed [facility] Hep B, Adol or Pedi Dosage 2000 00:00:00 Completed [facility] Hep B, Adol or Pedi Dosage 2000 00:00:00 Completed [facility] Hep B, Adol or Pedi Dosage 2000 00:00:00 Completed [facility] Hep B, Adol or Pedi Dosage 2000 00:00:00 Completed [facility] Hep B, Adol or Pedi Dosage 2000 00:00:00 Completed [facility] Hep B, Adol or Pedi Dosage 2000 00:00:00 Completed [facility] Hep B, Adol or Pedi Dosage 2000 00:00:00 Completed [facility] Hep B, Adol or Pedi Dosage 2000 00:00:00 Completed [facility] Hep B, Adol or Pedi Dosage 2000 00:00:00 Completed [facility] Hep B, Adol or Pedi Dosage 2000 00:00:00 Completed [facility] Hep B, Adol or Pedi Dosage 2000 00:00:00 Completed [facility] Hep B, Adol or Pedi Dosage 2000 00:00:00 Completed [facility] HIB 4 Dose Schedule Unknown Completed [facility] HIB 4 Dose Schedule Unknown Completed [facility] HIB 4 Dose Schedule Unknown Completed [facility] HIB 4 Dose Schedule Unknown Completed [facility] Hep B, Adol or Pedi Dosage Unknown Completed [facility] Hep B, Adol or Pedi Dosage Unknown Completed [facility] Hep B, Adol or Pedi Dosage Unknown Completed [facility] MMR Unknown Completed [facility] MMR Unknown Completed [facility] Pneumococcal 7 Conjugate, PCV7 (Prevnar7) Unknown Completed [facility] Pneumococcal 7 Conjugate, PCV7 (Prevnar7) Unknown Completed [facility] Polio (IPV/OPV) Unknown Completed [facility] Polio (IPV/OPV) Unknown Completed [facility] Polio (IPV/OPV) Unknown Completed [facility] Polio (IPV/OPV) Unknown Completed [facility] Varicella (varivax)(chicken pox) Unknown Completed [facility] Varicella (varivax)(chicken pox) Unknown Completed [facility] HEPATITIS A Unknown Completed [facility] Influenza Virus Vaccine Quad IM 3+ YRS Unknown Completed [facility] TDAP Unknown Completed [facility] Influenza Virus Vaccine Quad .5 mL IM 6+ MO (FLUZONE/FLULAVAL/FL UARIX) Unknown Completed [facility] TDAP Unknown Completed [facility] TDAP Unknown Completed [facility] DTaP, Unspecified Formulation Unknown Completed [facility] DTaP, Unspecified Formulation Unknown Completed [facility] DTaP, Unspecified Formulation Unknown Completed [facility] DTaP, Unspecified Formulation Unknown Completed [facility] DTaP, Unspecified Formulation Unknown Completed [facility] Influenza Virus Vaccine Quad .5 mL IM 6+ MO (FLUZONE/FLULAVAL/FL UARIX) Unknown Completed [facility] Influenza Virus Vaccine - Whole Unknown Completed [facility] HEPATITIS A Unknown Completed [facility] HEPATITIS A Unknown Completed [facility] Hib-HbOC Unknown Completed [facility] Hib-HbOC Unknown Completed [facility] Hib-HbOC Unknown Completed [facility] Hib-HbOC Unknown Completed [facility] Meningococcal Polysaccharide (groups A, C, Y and W-135) conjugate vaccine (MCV4P) Unknown Completed [facility] IPV Unknown Completed [facility] IPV Unknown Completed [facility] IPV Unknown Completed [facility] IPV Unknown Completed [facility] TDAP Unknown Completed [facility] Varicella (varivax)(chicken pox) Unknown Completed [facility] HPV9 Unknown Completed [facility] HIB 4 Dose Schedule Unknown Completed [facility] HIB 4 Dose Schedule Unknown Completed [facility] HIB 4 Dose Schedule Unknown Completed [facility] HIB 4 Dose Schedule Unknown Completed [facility] Hep B, Adol or Pedi Dosage Unknown Completed [facility] Hep B, Adol or Pedi Dosage Unknown Completed [facility] Hep B, Adol or Pedi Dosage Unknown Completed [facility] MMR Unknown Completed [facility] MMR Unknown Completed [facility] Pneumococcal 7 Conjugate, PCV7 (Prevnar7) Unknown Completed [facility] Pneumococcal 7 Conjugate, PCV7 (Prevnar7) Unknown Completed [facility] Polio (IPV/OPV) Unknown Completed [facility] Polio (IPV/OPV) Unknown Completed [facility] Polio (IPV/OPV) Unknown Completed [facility] Polio (IPV/OPV) Unknown Completed [facility] Varicella (varivax)(chicken pox) Unknown Completed [facility] Varicella (varivax)(chicken pox) Unknown Completed [facility] HEPATITIS A Unknown Completed [facility] Influenza Virus Vaccine Quad IM 3+ YRS Unknown Completed [facility] TDAP Unknown Completed [facility] Influenza Virus Vaccine Quad .5 mL IM 6+ MO (FLUZONE/FLULAVAL/FL UARIX) Unknown Completed [facility] TDAP Unknown Completed [facility] TDAP Unknown Completed [facility] DTaP, Unspecified Formulation Unknown Completed [facility] DTaP, Unspecified Formulation Unknown Completed [facility] DTaP, Unspecified Formulation Unknown Completed [facility] DTaP, Unspecified Formulation Unknown Completed [facility] DTaP, Unspecified Formulation Unknown Completed [facility] Influenza Virus Vaccine Quad .5 mL IM 6+ MO (FLUZONE/FLULAVAL/FL UARIX) Unknown Completed [facility] Influenza Virus Vaccine - Whole Unknown Completed [facility] HEPATITIS A Unknown Completed [facility] HEPATITIS A Unknown Completed [facility] Hib-HbOC Unknown Completed [facility] Hib-HbOC Unknown Completed [facility] Hib-HbOC Unknown Completed [facility] Hib-HbOC Unknown Completed [facility] Meningococcal Polysaccharide (groups A, C, Y and W-135) conjugate vaccine (MCV4P) Unknown Completed [facility] IPV Unknown Completed [facility] IPV Unknown Completed [facility] IPV Unknown Completed [facility] IPV Unknown Completed [facility] TDAP Unknown Completed [facility] Varicella (varivax)(chicken pox) Unknown Completed [facility] HPV9 Unknown Completed [facility] HIB 4 Dose Schedule Unknown Completed [facility] HIB 4 Dose Schedule Unknown Completed [facility] HIB 4 Dose Schedule Unknown Completed [facility] HIB 4 Dose Schedule Unknown Completed [facility] Hep B, Adol or Pedi Dosage Unknown Completed [facility] Hep B, Adol or Pedi Dosage Unknown Completed [facility] Hep B, Adol or Pedi Dosage Unknown Completed [facility] MMR Unknown Completed [facility] MMR Unknown Completed [facility] Pneumococcal 7 Conjugate, PCV7 (Prevnar7) Unknown Completed [facility] Pneumococcal 7 Conjugate, PCV7 (Prevnar7) Unknown Completed [facility] Polio (IPV/OPV) Unknown Completed [facility] Polio (IPV/OPV) Unknown Completed [facility] Polio (IPV/OPV) Unknown Completed [facility] Polio (IPV/OPV) Unknown Completed [facility] Varicella (varivax)(chicken pox) Unknown Completed [facility] Varicella (varivax)(chicken pox) Unknown Completed [facility] HEPATITIS A Unknown Completed [facility] Influenza Virus Vaccine Quad IM 3+ YRS Unknown Completed [facility] TDAP Unknown Completed [facility] Influenza Virus Vaccine Quad .5 mL IM 6+ MO (FLUZONE/FLULAVAL/FL UARIX) Unknown Completed [facility] TDAP Unknown Completed [facility] TDAP Unknown Completed [facility] DTaP, Unspecified Formulation Unknown Completed [facility] DTaP, Unspecified Formulation Unknown Completed [facility] DTaP, Unspecified Formulation Unknown Completed [facility] DTaP, Unspecified Formulation Unknown Completed [facility] DTaP, Unspecified Formulation Unknown Completed [facility] Influenza Virus Vaccine Quad .5 mL IM 6+ MO (FLUZONE/FLULAVAL/FL UARIX) Unknown Completed [facility] Influenza Virus Vaccine - Whole Unknown Completed [facility] HEPATITIS A Unknown Completed [facility] HEPATITIS A Unknown Completed [facility] Hib-HbOC Unknown Completed [facility] Hib-HbOC Unknown Completed [facility] Hib-HbOC Unknown Completed [facility] Hib-HbOC Unknown Completed [facility] Meningococcal Polysaccharide (groups A, C, Y and W-135) conjugate vaccine (MCV4P) Unknown Completed [facility] IPV Unknown Completed [facility] IPV Unknown Completed [facility] IPV Unknown Completed [facility] IPV Unknown Completed [facility] TDAP Unknown Completed [facility] Varicella (varivax)(chicken pox) Unknown Completed [facility] HPV9 Unknown Completed [facility] HPV9 Unknown Completed [facility] HIB 4 Dose Schedule Unknown Completed [facility] HIB 4 Dose Schedule Unknown Completed [facility] HIB 4 Dose Schedule Unknown Completed [facility] HIB 4 Dose Schedule Unknown Completed [facility] Hep B, Adol or Pedi Dosage Unknown Completed [facility] Hep B, Adol or Pedi Dosage Unknown Completed [facility] Hep B, Adol or Pedi Dosage Unknown Completed [facility] MMR Unknown Completed [facility] MMR Unknown Completed [facility] Pneumococcal 7 Conjugate, PCV7 (Prevnar7) Unknown Completed [facility] Pneumococcal 7 Conjugate, PCV7 (Prevnar7) Unknown Completed [facility] Polio (IPV/OPV) Unknown Completed [facility] Polio (IPV/OPV) Unknown Completed [facility] Polio (IPV/OPV) Unknown Completed [facility] Polio (IPV/OPV) Unknown Completed [facility] Varicella (varivax)(chicken pox) Unknown Completed [facility] Varicella (varivax)(chicken pox) Unknown Completed [facility] HEPATITIS A Unknown Completed [facility] Influenza Virus Vaccine Quad IM 3+ YRS Unknown Completed [facility] TDAP Unknown Completed [facility] Influenza Virus Vaccine Quad .5 mL IM 6+ MO (FLUZONE/FLULAVAL/FL UARIX) Unknown Completed [facility] TDAP Unknown Completed [facility] TDAP Unknown Completed [facility] DTaP, Unspecified Formulation Unknown Completed [facility] DTaP, Unspecified Formulation Unknown Completed [facility] DTaP, Unspecified Formulation Unknown Completed [facility] DTaP, Unspecified Formulation Unknown Completed [facility] DTaP, Unspecified Formulation Unknown Completed [facility] Influenza Virus Vaccine Quad .5 mL IM 6+ MO (FLUZONE/FLULAVAL/FL UARIX) Unknown Completed [facility] Influenza Virus Vaccine - Whole Unknown Completed [facility] HEPATITIS A Unknown Completed [facility] HEPATITIS A Unknown Completed [facility] Hib-HbOC Unknown Completed [facility] Hib-HbOC Unknown Completed [facility] Hib-HbOC Unknown Completed [facility] Hib-HbOC Unknown Completed [facility] Meningococcal Polysaccharide (groups A, C, Y and W-135) conjugate vaccine (MCV4P) Unknown Completed [facility] IPV Unknown Completed [facility] IPV Unknown Completed [facility] IPV Unknown Completed [facility] IPV Unknown Completed [facility] TDAP Unknown Completed [facility] Varicella (varivax)(chicken pox) Unknown Completed [facility] HPV9 Unknown Completed [facility] HPV9 Unknown Completed [facility] Vital Signs Vital Name Observation Time Observation Value Comments S ource Body temperature 2023-12-08 13:26:00 36.44 Deonna [facility] Systolic blood pressure 2023-11-02 12:54:00 99 mm[Hg] [facility] Diastolic blood pressure 2023-11-02 12:54:00 69 mm[Hg] [facility] Heart rate 2023-11-02 12:54:00 75 /[facility] 2023-11-02 12:54:00 36.17 Deonna [facility] Respiratory rate 2023-11-02 12:54:00 18 /min [facility] Body height 2023-11-02 12:54:00 160 cm [facility] Body weight 2023-11-02 12:54:00 51.982 kg [facility] BMI 2023-11-02 12:54:00 20.30 kg/m2 [facility] Systolic blood pressure 2023-01-12 13:36:00 93 mm[Hg] [facility] Diastolic blood pressure 2023-01-12 13:36:00 59 mm[Hg] [facility] Heart rate 2023-01-12 13:36:00 96 /min [facility] Respiratory rate 2023-01-12 13:36:00 18 /min [facility] Body height 2023-01-12 13:36:00 160 cm [facility] Body weight 2023-01-12 13:36:00 53.524 kg [facility] BMI 2023-01-12 13:36:00 20.90 kg/m2 [facility] Systolic blood pressure 2022-10-06 13:51:00 106 mm[Hg] [facility] Diastolic blood pressure 2022-10-06 13:51:00 58 mm[Hg] [facility] Heart rate 2022-10-06 13:51:00 100 /min [facility] Body temperature 2022-10-06 13:51:00 36.78 Deonna [facility] Respiratory rate 2022-10-06 13:51:00 16 /min [facility] Body height 2022-10-06 13:51:00 160 cm [facility] Body weight 2022-10-06 13:51:00 57.834 kg [facility] BMI 2022-10-06 13:51:00 22.59 kg/m2 [facility] Oxygen saturation in Arterial blood by Pulse oximetry 2022-10-06 13:51:00 98 /min [facility] Systolic blood pressure 2022-09-16 21:00:00 107 mm[Hg] [facility] Diastolic blood pressure 2022-09-16 21:00:00 65 mm[Hg] [facility] Heart rate 2022-09-16 21:00:00 73 /min [facility] Body temperature 2022-09-16 21:00:00 8.78 Deonna [facility] Respiratory rate 2022-09-16 21:00:00 16 /min [facility] Body height 2022-09-16 21:00:00 160 cm [facility] Body weight 2022-09-16 21:00:00 56.065 kg [facility] BMI 2022-09-16 21:00:00 21.89 kg/m2 [facility] Oxygen saturation in Arterial blood by Pulse oximetry 2022-09-16 21:00:00 97 /min [facility] Systolic blood pressure 2022-09-04 17:32:00 113 mm[Hg] [facility] Diastolic blood pressure 2022-09-04 17:32:00 72 mm[Hg] [facility] Heart rate 2022-09-04 17:32:00 89 /min [facility] Body temperature 2022-09-04 17:32:00 36.61 Deonna [facility] Respiratory rate 2022-09-04 17:32:00 17 /min [facility] Body height 2022-09-04 17:32:00 160 cm [facility] Body weight 2022-09-04 17:32:00 56.7 kg [facility] BMI 2022-09-04 17:32:00 22.14 kg/m2 [facility] Oxygen saturation in Arterial blood by Pulse oximetry 2022-09-04 17:32:00 98 /min [facility] Systolic blood pressure 2022-07-21 22:20:00 130 mm[Hg] [facility] Diastolic blood pressure 2022-07-21 22:20:00 81 mm[Hg] [facility] Heart rate 2022-07-21 22:20:00 85 /min [facility] Body temperature 2022-07-21 22:20:00 36.5 Deonna [facility] Respiratory rate 2022-07-21 22:20:00 18 /min [facility] Oxygen saturation in Arterial blood by Pulse oximetry 2022-07-21 22:20:00 100 /min [facility] Body height 2022-07-21 10:15:00 160 cm [facility] Body weight 2022-07-21 10:15:00 65.772 kg 145lb [facility] BMI 2022-07-21 10:15:00 25.69 kg/m2 [facility] Systolic blood pressure 2022-07-13 16:53:00 119 mm[Hg] [facility] Diastolic blood pressure 2022-07-13 16:53:00 75 mm[Hg] [facility] Heart rate 2022-07-13 16:53:00 87 /min [facility] Body temperature 2022-07-13 16:53:00 36.78 Deonna [facility] Respiratory rate 2022-07-13 16:53:00 18 /min [facility] Body height 2022-07-13 16:53:00 160 cm [facility] Body weight 2022-07-13 16:53:00 66.679 kg [facility] BMI 2022-07-13 16:53:00 26.04 kg/m2 [facility] Systolic blood pressure 2022-06-29 20:53:00 105 mm[Hg] [facility] Diastolic blood pressure 2022-06-29 20:53:00 61 mm[Hg] [facility] Heart rate 2022-06-29 20:53:00 75 /min [facility] Body temperature 2022-06-29 20:53:00 37 Deonna [facility] Respiratory rate 2022-06-29 20:53:00 18 /min [facility] Body height 2022-06-29 20:53:00 160 cm [facility] Body weight 2022-06-29 20:53:00 66.679 kg [facility] BMI 2022-06-29 20:53:00 26.04 kg/m2 [facility] Systolic blood pressure 2022-04-19 13:56:00 117 mm[Hg] [facility] Diastolic blood pressure 2022-04-19 13:56:00 86 mm[Hg] [facility] Heart rate 2022-04-19 13:56:00 91 /min [facility] Body temperature 2022-04-19 13:56:00 36.72 Deonna [facility] Respiratory rate 2022-04-19 13:56:00 18 /min [facility] Body height 2022-04-19 13:56:00 160 cm [facility] Body weight 2022-04-19 13:56:00 62.653 kg [facility] BMI 2022-04-19 13:56:00 24.47 kg/m2 [facility] Systolic blood pressure 2022-02-17 15:33:00 122 mm[Hg] [facility] Diastolic blood pressure 2022-02-17 15:33:00 73 mm[Hg] [facility] Heart rate 2022-02-17 15:33:00 78 /min [facility] Body temperature 2022-02-17 15:33:00 36.06 Deonna [facility] Respiratory rate 2022-02-17 15:33:00 18 /min [facility] Body height 2022-02-17 15:33:00 160 cm [facility] Body weight 2022-02-17 15:33:00 62.341 kg [facility] BMI 2022-02-17 15:33:00 24.35 kg/m2 [facility] Procedures Procedure Date / Time Performed Performing Clinician Source GARDASIL 9 (HPV 9V) VACCINE 2023-12-08 13:27:19 Estrella Holland [facility] GC & CHLAMYDIA AMPLIFIED ASSAY 2023-11-02 14:16:00 Estrella Holland [facility] HIV 1/2 AG-AB WITH REFLEX 2023-11-02 14:16:00 Estrella Holland [facility] TRICHOMONAS AMPLIFIED ASSAY 2023-11-02 14:16:00 Estrella Holland [facility] SYPHILIS IGG/IGM 2023-11-02 14:16:00 Viv Holland [facility] GARDASIL 9 (HPV 9V) VACCINE 2023-11-02 13:20:50 Estrella Holland [facility] POCT TEST 2023-11-02 13:03:00 Malik Holland [facility] POCT TEST 2023-01-12 00:00:00 Shayne Minor [facility] PATIENT FINANCIAL POLICY 2022-09-16 20:41:54 Doctor Unassigned, Luis Lopez [facility] CBC WITH DIFF 2022-07-21 23:36:00 Adum, Angeline Hendricks [facility] URINE DRUG (IMMUNOASSAY) - COMPREHENSIVE DRUG SCREEN 2022-07-21 12:25:00 Adum, Angeline George [facility] CENTRAL NEURAXIAL BLOCK 2022-07-21 11:51:41 Jing Rogers [facility] CBC WITH DIFF 2022-07-21 10:26:00 Adum, Angeline Hendricks [facility] HEPATITIS B SURFACE ANTIGEN 2022-07-21 10:26:00 Adum, Angeline George [facility] HIV 1/2 AG-AB WITH REFLEX 2022-07-21 10:26:00 Adum, Angeline George [facility] HB ABO GROUPING 2022-07-21 10:20:00 Adum, Angeline Callaway [facility] POCT URINALYSIS W/O SPECIFIC GRAVITY 2022-07-13 17:02:00 Adum, Angeline George [facility] TDAP VACCINE, >11 YRS, IM 2022-06-29 21:43:43 Adum, Angeline George [facility] POCT URINALYSIS W/O SPECIFIC GRAVITY 2022-06-29 21:01:00 Adum, Angeline George [facility] STERILIZATION CONSENT FORM 2022-06-29 06:01:00 Doctor Unassigned, Luis Lopez [facility] POCT URINALYSIS 2022-04-19 13:59:00 Estrella Holland [facility] POCT URINALYSIS 2022-02-17 15:34:00 Estrella Holland [facility] Encounters Start Date/Time End Date/Time Encounter Type Admission Type Attending Clinicians Care Facility Care Department Encounter ID Source 2021-05-14 22:05:48 [facility] [id number] [facility] 2021-05-14 21:26:39 Emergency [facility] [id number] [facility] 2024-05-10 08:15:00 2024-05-10 08:15:00 Outpatient R [facility] [id number] [facility] 2023-12-09 00:00:00 2023-12-13 08:34:38 Telephone Estrella Holland [facility] OPERATOR [facility] CHILD [facility] ..840.114 350.1.13.10 4.2.7.2.686 [id number] [facility] 2023-12-08 08:15:00 2023-12-08 08:37:57 Outpatient R [facility]A [facility] [id number] [facility] 2023-12-08 08:15:00 2023-12-08 08:30:00 Nurse Visit Nurse, Bandar Rmchp Rgv Cprit Obgyn Estrella Holland [facility] OPERATOR [facility] CHILD [facility] ..840.114 350.1.13.10 4.2.7.2.686 [id number] [facility] 2023-11-17 08:30:00 2023-11-17 08:30:00 Outpatient [facility] [id number] [facility] 2023-11-16 08:30:00 2023-11-16 08:30:00 Outpatient R [facility] [id number] [facility] 2023-11-02 07:45:00 2023-11-02 09:17:10 Outpatient R [facility] [id number] [facility] 2023-11-02 07:45:00 2023-11-02 09:17:10 Office Visit ShadelacyEstrella [facility] OPER[facility] 1..840.114 350.1.13.10 4.2.7.2.686 [id number] [facility] 2023-11-01 14:00:00 2023-11-01 14:00:00 Outpatient R JHAVERI-HARIKA S, ADALID JHAVERI-HARIKA S, ADALID [facility] [id number] [facility] 2023-06-21 14:30:00 2023-06-21 14:30:00 Outpatient R JHAVERI-HARIKA S, ADALID JHAVERI-HARIKA S, ADALID [facility] [id number] [facility] 2023-04-06 08:30:00 2023-04-06 08:30:00 Outpatient [facility] [id number] [facility] 2023-01-12 08:30:00 2023-01-12 08:35:17 Outpatient R NICK MINOR [facility] [id number] [facility] 2023-01-12 08:30:00 2023-01-12 08:35:17 Nurse Visit Nurse, capo [facility] Nick Minor SCMARI [facility] 1..840.114 350.1.13.10 4.2.7.2.686 [id number] [facility] 2023-01-11 09:45:00 2023-01-11 09:45:00 Outpatient R [facility] [id number] [facility] 2023-01-10 13:30:00 2023-01-10 13:30:00 Outpatient R NICK MINOR [facility] [id number] [facility] 2022-12-28 09:00:00 2022-12-28 09:00:00 Outpatient [facility] [id number] [facility] 2022-10-06 09:15:00 2022-10-06 09:30:00 Nurse Visit Nurse, Nadine [facility] MadiAngeline [facility] 1..114 350.1.13.10 4.2.7.2.686 [id number] [facility] 2022-10-06 09:15:00 2022-10-06 09:15:00 Outpatient R L[facility]ELINE [facility] [id number] [facility] 2022-10-06 00:00:00 2022-10-06 00:00:00 Letter (Out) MadiAngeline [facility] 1.114 350.1.13.10 4.2.7.2.686 [id number] [facility] 2022-09-27 00:00:00 2022-09-27 00:00:00 Outpatient R NICK MINOR [facility] [id number] [facility] 2022-09-16 16:15:00 2022-09-16 16:15:00 Routine Visit Nick Minor [facility] 1..114 350.1.13.10 4.2.7.2.686 [id number] 134 [id number] [facility] 2022-09-16 16:15:00 2022-09-16 15:14:13 Outpatient R NICK MINOR [facility] [id number] [facility] 2022-09-16 00:00:00 2022-09-16 00:00:00 Orders Only Doctor Unassigned, Luis Lopez [facility] 1..114 350.1.13.10 4.2.7.2.686 [id number] [facility] 2022-09-16 00:00:00 2022-09-16 00:00:00 Letter (Out) Nick Minor [facility] 1.2840.114 350.1.13.10 4.2.7.2.686 [id number] 134 [id number] [facility] 2022-09-04 11:20:00 2022-09-04 12:01:40 Outpatient R [facility] [id number] [facility] 2022-09-04 11:20:00 2022-09-04 12:01:40 Urgent Care Brian Du Unknown, Attending [facility] 1.2840.114 350.1.13.10 4.2.7.2.686 [id number] [facility] 2022-09-04 00:00:00 2022-09-04 00:00:00 Letter (Out) Du, Brian [facility] 1.2840.114 350.1.13.10 4.2.7.2.686 [id number] [facility] 2022-07-30 08:15:00 2022-07-30 08:15:00 Outpatient R [facility] [id number] [facility] 2022-07-26 00:00:00 2022-07-26 00:00:00 Encounter 1.2.840.1 [id number] .[id number] 1.20.114 350.1.13.10 4.2.7.2.696 [id number] [facility] 2022-07-22 00:00:00 2022-07-22 00:00:00 Christiano Genao [facility] 1.2.840.114 350.1.13.10 4.2.7.2.686 [id number] 134 [id number] [facility] 2022-07-22 00:00:00 2022-07-22 00:00:00 Encounter 1.2.840.1 [id number] 3.104.2.7 .[id number] 1.2.840.114 350.1.13.10 4.2.7.2.696 [id number] [facility] 2022-07-21 04:00:00 2022-07-21 19:38:00 Inpatient P ADANGELINE [facility] [id number] [facility] 2022-07-21 04:00:00 2022-07-21 19:38:00 Hospital Encounter Angeline Barraza [facility] 1.2840.114 350.1.13.10 4.2.7.2.686 [id number] [facility] 2022-07-21 05:21:00 2022-07-21 11:11:00 Anesthesia Event Izaiah Rogers [facility] 1.2.840.114 350.1.13.10 4.2.7.2.686 [id number] [facility] 2022-07-21 04:56:41 2022-07-21 04:56:41 Anesthesia Event Izaiah Rogers [facility] 1.2.840.114 350.1.13.10 4.2.7.2.686 [id number] [facility] 2022-07-20 07:30:00 2022-07-20 07:45:00 Senior Risk Analyst Visit Lab, Christiano Guo [facility] 1.2840.114 350.1.13.10 4.2.7.2.686 [id number] [facility] 2022-07-20 07:30:00 2022-07-20 07:30:00 Outpatient R [facility] [id number] [facility] 2022-07-18 00:00:00 2022-07-18 00:00:00 Telephone Christiano Lincoln Arturo [facility] 1.2.840.114 350.1.13.10 4.2.7.2.686 [id number] [facility] 2022-07-14 00:00:00 2022-07-14 00:00:00 Case [facility] 1.2.840.114 350.1.13.10 4.2.7.2.686 [id number] 134 [id number] [facility] 2022-07-13 12:15:00 2022-07-13 12:19:45 Senior Risk Analyst Visit Lab, Ang - Db Madi [facility] 1.2.840.114 350.1.13.10 4.2.7.2.686 [id number] [facility] 2022-07-13 10:30:00 2022-07-13 11:27:15 Outpatient R [facility]ADI [facility] [id number] [facility] 2022-07-13 10:30:00 2022-07-13 11:27:15 Routine Visit Madi [facility] 1.2.840.114 350.1.13.10 4.2.7.2.686 [id number] [facility] 2022-06-29 14:30:00 2022-06-29 15:38:40 Outpatient R MADI [facility] [id number] [facility] 2022-06-29 14:30:00 2022-06-29 15:38:40 Initial Visit Adum, [place] [facility] 1.840.114 350.1.13.10 4.2.7.2.686 [id number] [facility] 2022-06-29 00:00:00 2022-06-29 00:00:00 Orders Only Doctor Unassigned, Luis Lopez [facility] 1.2840.114 350.1.13.10 4.2.7.2.686 [id number] [facility] 2022-06-16 16:00:00 2022-06-16 16:00:00 Outpatient R [facility] [id number] [facility] 2022-05-17 09:00:00 2022-05-17 09:00:00 Outpatient R [facility] [id number] [facility] 2022-05-05 00:00:00 2022-05-05 00:00:00 Abstract Estrella Holland [facility] OPERATOR [facility] & CHILD [facility] 1.840.114 350.1.13.10 4.2.7.2.686 [id number] [facility] 2022-05-05 00:00:00 2022-05-05 00:00:00 Abstract Estrella Holland [facility]ILL[facility] OPERATOR [facility]ILD [facility] 1.2.840.114 350.1.13.10 4.2.7.2.686 [id number] [facility] 2022-05-05 00:00:00 2022-05-05 00:00:00 Telephone Estrella Holland [facility] OPERATOR [facility] 1.2.840.114 350.1.13.10 4.2.7.2.686 [id number] [facility] 2022-05-03 14:30:00 2022-05-03 15:31:03 Senior Risk Analyst Visit 1, [facility] Room Daniela Lazar Ikuvbogie [facility] OPERATOR [facility] 1.2.840.114 350.1.13.10 4.2.7.2.686 [id number] [facility] 2022-05-03 14:30:00 2022-05-03 14:30:00 Outpatient P [facility]A [facility] [id number] [facility] 2022-04-29 13:30:00 2022-04-29 13:30:00 Out[facility] [id number] [facility] 2022-04-26 00:00:00 2022-04-26 00:00:00 Telephone Estrella Holland [facility] OPERATOR [facility] 1.840.114 350.1.13.10 4.2.7.2.686 [id number] [facility] 2022-04-23 15:00:00 2022-04-23 15:00:00 Outpatient [facility] [id number] [facility] 2022-04-22 00:00:00 2022-04-22 00:00:00 Telephone Estrella Holland [facility] OPERATOR [facility] 1.2840.114 350.1.13.10 4.2.7.2.686 [id number] [facility] 2022-04-21 00:00:00 2022-04-21 00:00:00 Telephone Cristian Everett [facility] 1.284.114 350.1.13.10 4.2.7.2.686 [id number] [facility] 2022-04-19 09:00:00 2022-04-19 09:43:49 Outpatient R [facility] [id number] [facility] 2022-04-19 09:00:00 2022-04-19 09:43:49 Routine Visit Estrella Holland [facility] OPERATOR [facility] 1.2840.114 350.1.13.10 4.2.7.2.686 [id number] [facility] 2022-03-17 09:30:00 2022-03-17 09:30:00 Outpatient R [facility] [id number] [facility] 2022-03-08 14:00:00 2022-03-08 14:00:00 Outpatient [facility] [id number] [facility] 2022-02-17 10:30:00 2022-02-17 10:55:47 Outpatient R [facility] [id number] [facility] 2022-02-17 10:30:00 2022-02-17 10:55:47 Routine Visit Estrella Holland [facility] OPERATOR [facility] 1.840.114 350.1.13.10 4.2.7.2.686 [id number] [facility] 2022-02-17 00:00:00 2022-02-17 00:00:00 Telephone Estrella Holland [facility] OPERATOR [facility] 1..840.114 350.1.13.10 4.2.7.2.686 [id number] [facility] 2022-01-26 00:00:00 2022-01-26 00:00:00 Telephone Estrella Holland [facility] OPERATOR [facility] 1.2.840.114 350.1.13.10 4.2.7.2.686 [id number] [facility] 2022-01-23 00:00:00 2022-01-23 00:00:00 Telephone Estrella Holland [facility] OPERATOR [facility]ILD [facility] 1.84.114 350.1.13.10 4.2.7.2.686 [id number] [facility] 2022-01-20 14:15:00 2022-01-20 15:32:17 Outpatient R [facility] [id number] [facility] 2022-01-20 14:15:00 2022-01-20 15:32:17 Initial Visit Estrella Holland [facility] OPERATOR [facility] 1.840.114 350.1.13.10 4.2.7.2.686 [id number] [facility] 2022-01-20 14:15:00 2022-01-20 15:32:17 Outpatient R [facility] [id number] [facility] 2022-01-20 00:00:00 2022-01-20 00:00:00 Orders Only Doctor Unassigned, Luis Lopez [facility] 1.84.114 350.1.13.10 4.2.7.2.686 [id number] [facility] 2020-07-23 09:45:00 2020-07-23 09:45:00 Outpatient [facility] [id number] [facility] 2020-07-16 13:15:00 2020-07-16 13:15:00 Outpatient R [facility] [id number] [facility] 2020-06-25 10:28:43 2020-06-25 11:59:31 Routine Visit Christiano Lincoln [facility] 1.84.114 350.1.13.10 4.2.7.2.686 [id number] 134 [id number] [facility] 2020-06-25 10:28:43 2020-06-25 11:59:31 Routine Visit Christiano Lincoln [facility] 1.2.840.114 350.1.13.10 4.2.7.2.686 [id number] 134 [id number] 2020-06-25 10:30:00 2020-06-25 10:30:00 [facility] [id number] [facility] 2020-06-25 00:00:00 2020-06-25 00:00:00 Orders Only Doctor Unassigned, Luis Lopez [facility] 1.2840.114 350.1.13.10 4.2.7.2.686 [id number] [facility] 2020-06-19 08:30:00 2020-06-19 08:30:00 Outpatient Carisa [facility] [id number] [facility] 2020-06-17 00:00:00 2020-06-17 00:00:00 Telephone Christiano Lincoln [facility] 1..840.114 350.1.13.10 4.2.7.2.686 [id number] [facility] 2020-06-17 00:00:00 2020-06-17 00:00:00 Orders Only Doctor Unassigned, Luis Lopez [facility] 1.2840.114 350.1.13.10 4.2.7.2.686 [id number] [facility] 2020-06-05 09:01:17 2020-06-05 10:12:59 Routine Visit Christiano Lincoln [facility] 1.2.840.114 350.1.13.10 4.2.7.2.686 [id number] 134 [id number] [facility] 2020-06-05 08:45:00 2020-06-05 08:45:00 Outpatient R LATONIA [facility] [id number] [facility] 2020-05-20 15:59:53 2020-05-20 16:51:20 Routine Visit Renata Delcid [facility] 1.284.114 350.1.13.10 4.2.7.2.686 [id number] [facility] 2020-05-20 16:00:00 2020-05-20 16:00:00 Outpatient R [facility] [id number] [facility] 2020-05-20 00:00:00 2020-05-20 00:00:00 Letter (Out) Farhana [facility] 1.284.114 350.1.13.10 4.2.7.2.686 [id number] 134 [id number] [facility] 2020-05-09 09:55:57 2020-05-09 10:10:57 Senior Risk Analyst Visit 2, Adc Crhistiano Mason [facility] 1.284.114 350.1.13.10 4.2.7.2.686 [id number] [facility] 2020-05-09 08:56:49 2020-05-09 09:26:49 Senior Risk Analyst Visit Ultrasound, [facility] Anahi Delgadillo [facility] 1.284.114 350.1.13.10 4.2.7.2.686 [id number] 134 [id number] [facility] 2020-05-09 09:00:00 2020-05-09 09:00:00 Outpatient [facility] [id number] [facility] 2020-04-23 00:00:00 2020-04-23 00:00:00 Telephone Nurse, Nilesh [facility] Office Building One 1.284.114 350.1.13.10 4.2.7.2.686 [id number] [facility] 2020-04-17 00:00:00 2020-04-17 00:00:00 Telephone Christiano Lincoln [facility] 1.2.840.114 350.1.13.10 4.2.7.2.686 [id number] [facility] 2020-04-16 09:45:35 2020-04-16 14:05:58 Routine Visit Christiano Lincoln [facility] 1.2.840.114 350.1.13.10 4.2.7.2.686 [id number] [facility] 2020-04-16 13:47:50 2020-04-16 14:02:50 Laboratory Only Only, Adc Test Christiano Lincoln [facility] 1.2.840.114 350.1.13.10 4.2.7.2.686 [id number] [facility] 2020-04-16 10:00:00 2020-04-16 10:00:00 Outpatient R [facility] [id number] [facility] 2020-04-16 00:00:00 2020-04-16 00:00:00 Orders Only Doctor Unassigned, Luis Lopez [facility] 1.2.840.114 350.1.13.10 4.2.7.2.686 [id number] [facility] 2020-04-04 13:57:02 2020-04-04 14:51:56 Senior Risk Analyst Visit 1, [facility] Room Anahi Delgadillo [facility] OPERATOR [facility] 1.2..114 350.1.13.10 4.2.7.2.686 [id number] [facility] 2020-04-04 14:00:00 2020-04-04 14:00:00 [facility] [id number] [facility] 2020-04-04 10:30:00 2020-04-04 10:30:00 [facility] [id number] [facility] 2020-03-19 11:27:46 2020-03-19 12:05:21 [facility]ine Visit [facility] 1.2.114 350.1.13.10 4.2.7.2.686 [id number] [facility] 2020-03-19 11:30:00 2020-03-19 11:30:00 [facility] [id number] [facility] 2020-02-20 10:55:53 2020-02-20 11:10:53 Senior Risk Analyst Visit 2, Adc Lab [facility] 1.2.114 350.1.13.10 4.2.7.2.686 [id number] [facility] 2020-02-20 09:19:34 2020-02-20 10:28:28 Initial Visit Christiano Lincoln Arturo [facility] 1.2.114 350.1.13.10 4.2.7.2.686 [id number] [facility] 2020-02-20 09:00:00 2020-02-20 09:00:00 Outpatient R [facility] [id number] [facility] 2020-02-20 00:00:00 2020-02-20 00:00:00 Orders Only Doctor Unassigned, Luis Lopez [facility] 1.2.114 350.1.13.10 4.2.7.2.686 [id number] [facility] 2020-02-12 00:00:00 2020-02-12 00:00:00 Telephone Christiano Lincoln [facility] Building 1.2.114 350.1.13.10 4.2.7.2.686 [id number] [facility] 2020-01-18 09:30:00 2020-01-18 09:30:00 Outpatient R [facility] [id number] [facility] 2019-12-08 06:56:27 2019-12-08 10:35:00 Emergency Simi Núñez [facility] 1.2.840.114 350.1.13.10 4.2.7.2.686 [id number] [facility] 2019-12-04 03:47:07 2019-12-04 06:29:00 Emergency Simi Núñez [facility] 1.2.840.114 350.1.13.10 4.2.7.2.686 [id number] [facility] 2019-12-04 00:00:00 2019-12-04 00:00:00 Orders Only Doctor Unassigned, Luis Lopez [facility] 1.2.840.114 350.1.13.10 4.2.7.2.686 [id number] [facility] Results Test Description Test Time Test Comments Results Result Co mments Source [facility] [id number] 13:03:00* Test Item Value Reference Range Interpretation Comme [facility] POCT PREG (test code = 1605) Negative On board controls acceptable with C Line (test code = 3574) Yes POCT PREG LOT # (test code = 3575) POCT PREG TEST DATE ( test code = 3576) [facility] [id number] 13:35:00* Test Item Value Reference Range Interpretation Comme [facility] POCT PREG (test code = 1605) Negative On board controls acceptable with C Line (test code = 3574) Yes POCT PREG LOT # (test code = 3575) POCT PREG TEST DATE ( test code = 3576) [facility] CenterHepatitis B Surface [id number] 16:53:28 * Test Item Value Reference Range Interpretation Comme nts HBsAg Semi-Quantitative (davion t code = 5195-3) Negative Negative [facility] CenterHIV [facility]/2 AG-AB WITH [id number] 14:11:28* Test Item Value Reference Range Interpretation Comme nts HIV Semi-quantitative (test code = 19124-5) Negative Negative KISHORE (test code = KISHORE) Non-reactive for HIV-1 antigen and HIV-1/HIV-2 antibodies. ?No laboratory evidence of HIV infection. ?Repeat in 2-4 weeks if acute HIV infection is suspected. [facility] CenterType and Screen - ONCE [id number] 11:18:01 * Test Item Value Reference Range Interpretation Comme nts ABO & RH (test code = 20) A Positive Performed at [facility] Laboratory [facility] [address] [place] [address] Free: [phone] No. [id number] IAT (test code = 1185) Negative Performed at [facility] Blood [address] [place] [address] Free: [phone] No. [id number] [facility] CenterCBC with [id number] 10:40:06* Test Item Value Reference Range Interpretation Comme nts WBC (test code = 6690-2) See_Comment [Automated messa ge] The system which generated this result transmitted reference range: 4.30 - 11.10 10*3/?L. The reference range was not used to interpret this result as normal/abnormal. RBC (test code = 789-8) See_Comment L [Automated messa ge] The system which generated this result transmitted reference range: 3.93 - 5.25 10*6/?L. The reference range was not used to interpret this result as normal/abnormal. HGB (test code = 718-7) 9.8 g/dL 11.6-15.0 L HCT (test code = 4544-3) 29.8 % 35.7-45.2 L MCV (test code = 787-2) 95.5 fL 80.6-95.5 MCH (test code = 785-6) 31.4 pg 25.9-32.8 MCHC (test code = 786-4) 32.9 g/dL 31.6-35.1 RDW-SD (test code = 19178-2) 46.4 fL 39.0-49.9 RDW-CV (test code = 788-0) 13.3 % 12.0-15.5 PLT (test code = 777-3) See_Comment [Automated BMP [employer] ge] The system which generated this result transmitted reference range: 166 - 358 10*3/?L. The reference range was not used to interpret this result as normal/abnormal. MPV (test code = 82872-4) 9.1 fL 9.5-12.9 L NRBC/100 WBC (test code = 2155868062) See_Comment [Automated [employer] ssage] The system which generated this result transmitted reference range: 0.0 - 10.0 /100 WBCs. The reference range was not used to interpret this result as normal/abnormal. NRBC x10^3 (test code = 0215460845) See_Comment [Automated BMP [employer] ge] The system which generated this result transmitted reference range: 10*3/?L. The reference range was not used to interpret this result as normal/abnormal. GRAN MAT (NEUT) % (test code = 770-8) 68.7 % IMM GRAN % (test code = 6772013425) 0.90 % LYMPH % (test code = 736-9) 22.0 % MONO % (test code = 5905-5) 6.6 % EOS % (test code = 713-8) 1.4 % BASO % (test code = 706-2) 0.4 % GRAN MAT x10^3(ANC) (test code = 8325583321) 7.38 10*3/uL 1.88-7.09 H IMM GRAN x10^3 (test code = 6750443744) 0.10 10*3/uL 0.00-0.06 H LYMPH x10^3 (test code = 731-0) 2.36 10*3/uL 1.32-3.29 MONO x10^3 (test code = 742-7) 0.71 10*3/uL 0.33-0.92 EOS x10^3 (test code = 711-2) 0.15 10*3/uL 0.03-0.39 BASO x10^3 (test code = 704-7) 0.04 10*3/uL 0.01-0.07 Lab Interpretation (test code = 85561-2) Abnormal [facility] URINALYSIS W/O SPECIFIC [id number] 17:02:00* Test Item Value Reference Range Interpretation Comme nts POCT PH U (test code = 3254) 7 mg/dl 5-8 POCT U LEUK EST (test code = 3263) trace Negative - Negative POCT U NIT (test code = 3262) negative Negative - Negati ve POCT U PROT (test code = 3259) negative Negative - Negat chikis POCT U GLU (test code = 3256) negative Negative - Negati ve POCT U KETONE (test code = 3258) negative Negative - Neg ative POCT U BLD (test code = 3257) negative Negative - Negati ve [facility] URINALYSIS W/O SPECIFIC [id number] 21:01:00* Test Item Value Reference Range Interpretation Comme nts POCT PH U (test code = 3254) n/a 5-8 POCT U LEUK EST (test code = 3263) n/a Negative - Negative POCT U NIT (test code = 3262) n/a Negative - Negati ve POCT U PROT (test code = 3259) negative Negative - Negat chikis POCT U GLU (test code = 3256) negative Negative - Negati ve POCT U KETONE (test code = 3258) n/a Negative - Neg ative POCT U BLD (test code = 3257) n/a Negative - Negati ve [facility] URINALYSIS W SPECIFIC [id number] 13:59:00* Test Item Value Reference Range Interpretation Comme nts POCT U SP GRAV (test code = 3255) . 1.005-1.025 POCT PH U (test code = 3254) . 5-8 POCT U LEUK EST (test code = 3263) . Negative - N egative POCT U NIT (test code = 3262) . Negative - Negati ve POCT U PROT (test code = 3259) Trace Negative - Negat chikis POCT U GLU (test code = 3256) Neg Negative - Negati ve POCT U KETONE (test code = 3258) . Negative - Neg ative POCT U UROBILI (test code = 3260) .. 0.2-1 POCT U BILI (test code = 3261) . Negative - Negat chikis POCT U BLD (test code = 3257) . Negative - Negati ve POCT U COLOR (test code = 3266) . POCT U APPEAR (test code = 3267) . [facility] URINALYSIS W SPECIFIC [id number] 15:34:00* Test Item Value Reference Range Interpretation Comme nts POCT U SP GRAV (test code = 3255) . 1.005-1.025 POCT PH U (test code = 3254) . 5-8 POCT U LEUK EST (test code = 3263) . Negative - N egative POCT U NIT (test code = 3262) . Negative - Negati ve POCT U PROT (test code = 3259) 1+ Negative - Negat chikis POCT U GLU (test code = 3256) Neg Negative - Negati ve POCT U KETONE (test code = 3258) . Negative - Neg ative POCT U UROBILI (test code = 3260) . 0.2-1 POCT U BILI (test code = 3261) . Negative - Negat chikis POCT U BLD (test code = 3257) . Negative - Negati ve POCT U COLOR (test code = 3266) . POCT U APPEAR (test code = 3267) . [facility] Center[facility]/NG, NAAT, [id number] 21:23:29* Test Item Value Reference Range Interpretation Comme nts GONORRHEA, NAAT (test code = 05371) POSITIVE NEGATIVE A IMPORTANT NO FLEX: SEE ANNOUNCEMENT AT [email or web address] Note: Assay methodology is nucleic acid amplification by security systems integrator mediated amplification (TMA) utilizing the Aptima Combo 2 Assay. CHLAMYDIA, NAAT (test code = 52025) NEGATIVE NEGATIVE IMPORTANT NO FLEX: SEE ANNOUNCEMENT AT [email or web address] Note: Assay methodology is nucleic acid amplification by security systems integrator mediated amplification (TMA) utilizing the Aptima Combo 2 Assay. [id number] 06:05:41* Test Item Value Reference Range Interpretation Comme nts RPR RESULT (test code = 3501) NON-REACTIVE NON-REACTIVE RPR TITER (test code = 3500) NOT INDIC. TITER NOT INDIC. UNLESS OTHERWISE INDICATED, ALL TESTING PERFORMED [facility] [employer] [employer] [address] [place] [address] SENIOR PRODUCT DEVELOPMENT MANAGER: JON STARR M.D. [place] NUMBER [id number] [facility] [place] [id number] HIV 1/2 4TH GEN, RFLX [id number] 06:02:42* Test Item Value Reference Range Interpretation Comme nts HIV 1/2 4TH GEN, RFLX CONF ( test code = 3514) NON-REACTIVE NON-REACTIVE HEPATITIS PANEL, [id number] 06:02:42* Test Item Value Reference Range Interpretation Comme nts HEPATITIS A IgM (test code = 73464) NON-REACTIVE NON-REACTIVE HEPATITIS B CORE IgM (test code = 4644) NON-REACTIVE NON-REACTIVE HEPATITIS B SURF AG (test code = 2739) NON-REACTIVE NON-REACTIVE HEPATITIS C ANTIBODY (test code = 4675) NON-REACTIVE NON-REACTIVE INTERPRETATION HEPATITIS A: (test code = 2552) (NOTE) Hepatitis A serology shows no evidence of acute hepatitis A. INTERPRETATION HEPATITIS B: (test code = 45449) (NOTE) Hepatitis B serology shows no evidence of acute hepatitis B andno indication of exposure to hepatitis B virus in the previous debra eight months. INTERPRETATION HEPATITIS C: (test code = 34719) (NOTE) Hepatitis C serology shows no evidence of exposure to hepatitisC virus at this time. It can take up to 12 months after exposure tothe hepatitis C virus for antibodies to become detectable in the blood in certain patients. Notes Date/Time Note Provider Source 2023-12-13 08:34:15 Attempt#3. Called, no answer. Left VM. JOSÉ URENA RN 12/13/2023 8:34 AM oJsé Urena RN [facility] 2023-12-09 15:18:02 2nd attempt to call patient, no answer, left vm. Health 2023-12-09 11:30:32 Attempted to call patient, no answer, left vm. Health 2023-12-09 10:40:39 Copied from [facility] #[id number]. Topic: Clinical - Results >> December 09, 2023 10:39 AM Patient Human Resources Hr Representative wrote: Pt requesting most recent lab results. Please contact pt at [phone]. T Elaina Quiroz [facility]
== END 2024-03-05 11:42 | disposition home or self-care (01) ==
LOC: ER 10:12
PROC: 0HQMXZZ Repair Right Foot Skin, External Approach (ICD-10-PCS; principal; 2024-03-05)
DX: S91.311A Laceration without foreign body, right foot, initial encounter (principal)